=== PATIENT | male | born 2005 | race Caucasian/White ===

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

== ENCOUNTER 2025-06-26 10:05 | Outpatient (CLI) | payer SELFPAY ==
--- OUTSIDE RECORDS SUMMARY | 2025-05-04 19:54 | XMS_ITS | Encounter Summary ---
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 hip and ribs (flank pain) or in your back. ? Bruising, swelling, or seatbelt jerez in the area of your kidney, low back, or abdomen. Home care If you've had a bruise to your kidney, follow these tips: ? Drink lots of fluid. This means at least 8 to 10 glasses of water a day. ? Rest. Don't lift heavy objects or do strenuous activity for the next few days. ? You may use tqmv-leo-vraozbg medicine to control pain, unless your doctor prescribed something else. Talk with your doctor before using acetaminophen or nonsteroidal anti-inflammatory drugs, such as naproxen or ibuprofen, if you have chronic liver or kidney disease or are taking blood thinners. Also talk with your doctor if you've ever had a stomach ulcer or gastrointestinal bleeding. Children and teens should not take aspirin unless their doctor says it is safe. Aspirin can put them at risk for Jj syndrome, a rare but serious condition. Follow-up care Follow up with your doctor if you still have blood in your urine after 2 days (48 hours). Call 911 Call 911 if you: ? Have fainting, lightheadedness, dizziness, weakness, or a loss of consciousness. ? Have a rapid heart rate. ? Have heavy bleeding. ? Have severe belly (abdominal) pain or swelling. ? Have severe back pain. ? Have trouble breathing. ? Have a loss of feeling or weakness in your legs. ? Are unable to hold your urine (incontinence). When to get medical advice Contact your doctor right away if you: ? Have pain in your back or belly that gets worse. ? Have repeated vomiting. ? Notice larger amounts of blood in your urine. ? Pass blood clots in your urine. ? Cannot pass urine. ? Have a fever of 100.4??F (38??C) or higher, or as advised by your doctor. Last Reviewed Date: 2025 00:00:00 ?? [employer]. All rights reserved. This information is not intended as a substitute for professional medical care. Always follow your healthcare professional's instructions. * Jayjay Al - Enzo Delgadillo RN - 05/07/2025 11:56 AM EDT Images from the original note were not included. [id number] Having Femur Fracture Open Reduction and Internal Fixation (ORIF) ORIF is a type of treatment to fix a broken bone. It puts the pieces of a broken bone back togetherso they can heal. Open reduction means the bones are put back in place during a surgery. Internal fixation means that special hardware is used to hold the bone pieces together. This helps the bone heal correctly. The procedure is done by an orthopedic surgeon. This is a doctor with special trainingin treating bone, joint, and muscle problems. Flexible nails are one type of internal fixation. What to tell your healthcare provider Tell your healthcare provider about all the medicines you take. This includes prescriptions and kgtj-fhe-qqonzaf medicines, such as ibuprofen. It also includes vitamins, herbs, and other supplements.Tell the healthcare provider the last time you had something to eat or drink. Also tell your provider if you: ? Have had any recent changes in your health, such as an infection or fever ? Are sensitive or allergic to any medicines, latex, or tape ? Are sensitive or allergic to anesthesia, the medicines used to put you to sleep during surgery orto numb the surgery area ? Are or think you may be Tests before your surgery You may need an X-ray or a CT scan to look at your femur. Getting ready for your surgery ORIF often takes place as emergency surgery after an accident or injury. Before this procedure, a healthcare provider will ask about your health history and give you a physical exam. In some cases, femur fracture ORIF is planned. You may need to have your leg placed in traction while you wait for surgery. Traction is a type of sling that holds your leg. Talk with your healthcare provider about how to prepare for your surgery. You may need to stop taking some medicines, such as blood thinners and aspirin, before the procedure. If you smoke, you may need to stop before your surgery. Smoking can delay healing. Talk with your provider if you need help to stop smoking. Also, make sure to: ? Ask a family member or friend to take you home from the hospital. You can't drive yourself. ? Plan some changes at home to help you recover. Arrange for someone to help you at home after the surgery. ? Follow any instructions for not eating or drinking before your surgery. ? Follow all other instructions from your healthcare provider. You will be asked to sign a consent form that gives your permission to do the surgery. Read the form carefully. Ask questions if something isn't clear. On the day of surgery Your surgeon will explain the details of your surgery. These details will depend on where your injury is and how bad it is. An orthopedic surgeon with a team of specialized nurses will do the surgery. The preparation and surgery may take a couple of hours. In general, you can expect the following: ? You'll likely have general anesthesia. This will prevent pain and make you sleep through the surgery. Or you may have local or regional anesthesia to numb the area and medicine to help you relax and sleep through the surgery. ? A healthcare provider will watch your vital signs, like your heart rate and blood pressure, during the surgery. ? After cleaning the skin, your surgeon will make a cut (incision) through the skin and muscle of your thigh. ? The surgeon will put the pieces of your femur back into line correctly (reduction). ? The surgeon will secure the pieces of the broken bones to each other (fixation). They may use screws, metal plates, wires, or pins. For a fracture in the middle of your femur, a special metal noel may be put through the middle of the bone. It screws into the bone at both ends. ? The surgeon will make other repairs to the area as needed. ? The surgeon will close the layers of muscle and skin around your thigh with stitches (sutures), tiffanie, or by other means. After your surgery Talk to your surgeon about what you can expect after your surgery. You may stay one or more nights in the hospital. Before leaving the hospital, you'll likely have X-rays taken of your femur. This isto check the repair. You'll have some pain after the surgery. Your surgeon will tell you what pain medicine you can taketo help reduce the pain. Avoid certain sbkn-nxh-fhhlefa pain medicines as instructed. Some of thesemay interfere with bone healing. You can also use ice packs to help lessen pain and swelling. You?ll get instructions about how to move your leg and when you can put weight on it. Your surgeon may also tell you to eat foods high in calcium and vitamin D to help with bone healing. You may needto take medicine called a blood thinner for a little while after your surgery. Blood thinners stop blood from clotting or clumping together. Follow all your surgeon?s instructions carefully. Follow-up care Go to all of your follow-up visits. You may need to have your stitches removed a week or so after your surgery. You may have physical therapy to improve the strength and movement of your leg. The therapy may include treatments and exercises. The therapy improves your chances of a full recovery. Most people areable to return to all their normal activities within a few months. A femur fracture can take 4 to 6months to heal fully, but you should be able to go back to many activities before then. When to call your healthcare provider Call your healthcare provider if you have any of the following: ? Fever of 100.4??F (38??C) or higher, or as directed by your provider ? Chills ? Redness, swelling, or fluid leaking from your incision that gets worse ? Pain in your leg or calf that gets worse ? Loss of feeling in your foot or leg Last Reviewed Date: 2024 00:00:00 ?? [id number] [employer]. All rights reserved. This information is not intended as a substitute for professional medical care. Always follow your healthcare professional's instructions. * Jayjay OnIR - Enzo Delgadillo RN - 05/07/2025 11:56 AM EDT Images from the original note were not included. [id number] Discharge Instructions: Internal Fixation of a Fractured Femur You had a procedure called internal fixation of a fractured femur (thighbone). A noel, plates and screws, or several pins were inserted inside the bone. These will hold the broken ends of bone in place while they heal. After the bone has healed, the noel, plate and screws, or pins may need to be removed with surgery. A broken femur is a serious injury that takes about 3 to 6 months to heal. Here are instructions to help you care for your leg when you are at home. Activity ? Arrange your household to keep the items you need within reach. ? Remove electrical cords, throw rugs, and anything else that may cause you to fall. ? Use nonslip bathmats, grab bars, a raised toilet seat, and a shower chair in your bathroom. ? Follow the weight-bearing instructions given by your doctor. They will tell you how much weight you can or can't put on your leg. ? Use a cane, crutches, a walker, or handrails. Use these until your balance, flexibility, and strength improve. Ask for help from others when you need it. ? Don't carry things in your hands. You will need to use your hands to keep your balance. Use a polo pack, apron, or pockets to carry things. ? Don?t sit or lie in the same position for long periods. Don't cross your legs when you sit or liedown. Carefully reposition yourself every 30 to 60 minutes. ? Don?t drive until your doctor says it?s okay. And never drive while taking opioid pain medicine. Home care ? Take your pain medicine exactly as directed. ? Take extra care when showering. Follow your doctor?s instructions closely. Do the following: o If you wear a leg brace or immobilizer, cover it with plastic to keep it dry while you shower. o If you don't wear a leg brace or immobilizer, carefully wash your incision with soap and water. Gently pat it dry. Don?t rub the incision or apply creams or lotions to it. To prevent falling while showering, sit on a shower chair. ? Tell all your health care providers--including your dentist--that you have a noel, plate and screws, or pins in your leg. You may need to take antibiotics before dental procedures and other medical procedures. This is to reduce the risk of infection. Follow-up care Follow up with your doctor as advised. Call 911 Call 911 right away if you have: ? Chest pain. ? Shortness of breath. When to contact your doctor Contact your doctor right away if you have: ? Numbness or tingling in your leg or toes. ? Cool, pale, red- or blue-colored leg or toes. ? A fever of 100.4?? F ( 38?? C) or higher, or as directed by your doctor. ? Shaking chills. ? Pain that gets worse. ? Swelling of the fracture site or calf. ? Fluid with foul odor coming from the dressing. ? A rash. Last Reviewed Date: 2025 00:00:00 ?? [id number] [employer]. All rights reserved. This information is not intended as a substitute for professional medical care. Always follow your healthcare professional's instructions. * Jayjay MarlowSANDRITA - Enzo Delgadillo RN - 05/07/2025 11:56 AM EDT Images from the original note were not included. [id number] Preventing a Surgical Site Infection A risk of any surgery is an infection at the surgical site. The surgical site is a cut the surgeon makes in the skin to do the surgery. Surgical site infections can range in type. It may be a minor skin infection. Or it may be severe and include tissue under the skin or other organs. In some cases,a severe infection can cause . The information below tells you: ? About surgical site infections. ? What hospitals do to prevent them. ? How they?re treated if they do occur. ? What you can do to prevent an infection. Hand washing reduces the risk of infection. What causes a surgical site infection? Germs are everywhere. They?re on your skin, in the air, and on things you touch. Many germs are good. Some are harmful. Surgical site infections occur when harmful germs enter your body through the incision in your skin. Some infections are caused by germs that are in the air or on objects. But most are caused by germs found on and in your own body. Who is at risk for a surgical site infection? Anyone can have a surgical site infection. Your risk is higher if you: ? Are an older adult. ? Have a weak immune system. ? Have other health conditions such as diabetes. ? Take certain medicines, such as steroids. ? Are a smoker. ? Have certain types of surgery, such as abdominal surgery. ? Have poor nutrition. ? Are very overweight. ? Have a surgery that lasts longer than 2 hours. What are the symptoms of a surgical site infection? An infection often shows up as skin redness, pain, and swelling around the incision that gets worse. Later, a cloudy or greenish-yellow fluid may come from the incision. The fluid may smell bad. The incision may pull apart or open up. You are likely to have a fever and may feel very ill. Symptoms can appear at any time. They may happen from hours to weeks after surgery. Implants such as an artificial knee or hip can become infected at any time after the surgery. How is a surgical site infection treated? ? A surgical site infection is treated with antibiotics. The type of medicine you get will depend on what may be causing the infection. Most serious wound infections need wound care. In some cases, surgery may be needed on the infected wound. ? An infected skin wound may be reopened and cleaned. A deep wound may need to be packed with gauze. The gauze is changed often until the wound starts to heal from the inside out. Your health care provider will decide the best way to treat your infection. ? If an infection occurs where an implant is placed, the implant may be removed. ? If you have an infection deeper in your body, you may need surgery to treat it. What hospitals do to prevent surgical site infections Many hospitals take these steps to help prevent surgical site infections: ? Handwashing. Before the surgery, your surgeon and all surgery staff scrub their hands and arms with an antiseptic soap. ? Clean skin. The site where your incision is made is carefully cleaned with an antiseptic solution. ? Sterile clothing and drapes. The surgical team wears medical uniforms. These are known as scrub suits. They wear long-sleeved surgical gowns, masks, caps, shoe covers, and sterile gloves. Your bodyis fully covered with a large sterile sheet (sterile drape). There is an opening in the sheet wherethe incision is made. ? Clean air. Operating rooms have special air filters. They use positive pressure airflow to prevent unfiltered air from entering the room. ? Careful use of antibiotics. Antibiotics are given no more than 60 minutes before the incision is made. They are generally stopped within 24 hours after surgery. This depends on the type of surgery.This helps kill germs but prevents problems that can occur when antibiotics are taken longer. ? Controlled blood sugar levels. Your blood sugar level may rise. This can be because of the stressof the surgery. Your blood sugar level is watched closely to make sure it stays within a normal range. High blood sugar delays wound healing. This increases the risk of infection. ? Controlled body temperature. A ajwlq-lotm-ilocnl temperature during or after surgery prevents oxygen from reaching the wound. This makes it harder for your body to fight infection. Hospitals may warm I.V. fluids, and provide warm-air blankets. Your temperature is watched throughout the surgery. ? Safe hair removal. Any hair that must be removed is clipped right before the incision, not shavedwith a razor. This prevents tiny nicks and cuts where germs can enter. ? Wound care. After surgery, a closed wound is covered with a sterile dressing for 1 to 2 days. Open wounds are packed with sterile gauze and covered with a sterile dressing. What you can do to prevent a surgical site infection ? Ask questions. Learn what your hospital is doing to prevent infection. ? If instructed, shower or bathe with plain soap the night before and the day of your surgery. Follow all instructions you're given. You may be asked to use a special cleanser that you don?t rinse off. ? If you smoke, stop as long as possible before and after the surgery. Ask your provider about waysto quit. ? Take antibiotics only when your provider tells you to. Using antibiotics when they?re not needed can create germs that are harder to kill. Finish the entire prescription of your antibiotics even ifyou feel better. ? Ask health care workers to clean their hands with plain soap and water or with an alcohol-based hand state appellate clerk before and after caring for you. Don?t be afraid to remind them. ? After surgery, eat healthy foods. Care for your incision as directed by your health care team. When to contact your doctor Contact your provider or seek medical care right away if: ? The pain at the surgical site gets worse. ? A red streak, worse redness, or puffiness appears near the incision. ? Yellowish, cloudy, or bad-smelling fluid leaks from the incision. ? Your stitches dissolve before the wound heals. ? You have a fever of 100.4?? F ( 38??C ) or higher, or as advised by your provider. ? You have a tired feeling that doesn?t go away. Last Reviewed Date: 2024 00:00:00 ?? [id number] [employer]. All rights reserved. This information is not intended as a substitute for professional medical care. Always follow your healthcare professional's instructions. * Progress Notes - Liberty Blake Stephania - 05/07/2025 11:41 AM EDT Occupational Therapy Treatment Patient Name: Jeremy Lagunas Today's Date: 05/07/2025 OT Discharge Recommendations: Acute rehab Equipment Recommended: Defer to facility Subjective Pt states, I want to try to walk today. Participants in Care Family/Caregiver Present: No Presentation Oxygen Therapy: None (Room air) Lines and Tubes: Peripheral IV 05/04/25 Posterior;Right Hand (Active) Peripheral IV 05/04/25 Left;Posterior Hand (Active) Pre-Session: Lines intact, Chair alarm, Sitting in chair Post-Session: Sitting in chair, Lines intact, Call light in reach, RN notified, Chair alarm Precautions Left Lower Extremity Weight Bearing Status: Weight Bearing as Tolerated Medical Precautions: Fall precautions Objective The Occupational Therapist educated the patient on the use of the Bri Rating of Perceived Exertion(RPE) Scale for self-monitoring of exertion levels during physical activity. The patient identifiedexertional demands as a 5/10 at point of rest break. The patient was instructed to initiate a standing or seated rest break when the RPE reaches 6 or 7 to help manage exertion and prevent overexertion. Following functional mobility, the patient endorsed feeling dizzy. The therapist took a blood pressure reading to ensure safety, which measured 145/96 (112). The RN was notified. Dizziness abated with seated rest break. Pain Pt reports 3-4/10 pain in left LE. RN notified patient left positioned for increased comfort and pressure relief. Delirium Screening RASS: Alert and calm Confusion Assessment Method-ICU (CAM-ICU/PCAM-ICU) Feature 3: Altered Level of Consciousness: Negative Bed Mobility Bed Mobility Interventions: Pt received and left seated in bedside chair. Transfers Transfer Exam: Sit to stand Level of [place]: Contact guard Physical/Nonphysical Assist: Verbal Cues, Set-up required Assistive Device: Walker, rolling Transfer Exam: Stand to Sit Level of [place]: Contact guard Physical/Nonphysical Assist: Verbal Cues, Set-up required Assistive Device: Walker, rolling Self-Care Interventions Self Care/Home Management (ADLs) Time Entry: 24 Skilled treatment and support services provided during occupational therapy session include: Monitoring of vital signs to ensure tolerance during therapeutic activity. Moderate verbal, tactile, visual, and demonstrative cues to facilitate sequencing during functionaltasks. Provision of increased time frames to support optimal level of patient engagement. Task/activity modification with appropriate grading to promote patient safety while offering the right level of functional challenge. Skilled organization and management of medical lines/tubes to reduce the risk of falls. Environmental setup to ensure patient safety and access to all necessary treatment space locations. Education on energy conservation and work simplification strategies. OT guided patient through self care tasks this date with focus on increasing his functional endurance, strength and mobility for sustained ADL performance. OT provided pt with verbal instruction, tactile cues, demonstration, and varied levels of physical assist to complete tasks as outlined below. Grooming Grooming Interventions: Pt deferred. Health Management Health Management interventions: Pt completed functional mobility, including hospital room navigation with set- up, CGA, verbal cues,and tactile cues to improve activity tolerance, endurance and independence required for sequential ADL performance, community re-entry, and navigating household distances. Pt demonstrates limited endurance, increased pain, and impaired tolerance to upright position impacting independence with functional mobility and safety during dynamic standing tasks. He requires verbal and tactile cues for endurance, posture, technique, and safety. Pt reported feeling dizzy and requiring a seated rest break after walking grossly 20 feet. While at rest, pt notes, I don't think I'm ready to try the stairs yet. Assessment The patient demonstrates progression of skills from the previous treatment session, evidenced by reduced assistance levels, improved tolerance for out-of-bed activities, and enhancing static/dynamic sitting balance. He verbalized motivation for recovery and actively engaged throughout the session. However, he demonstrates rapid fatigue and reports dizziness with exertion. The patient will continue to benefit from skilled occupational therapy interventions to maximize rehabilitation potential, given ongoing impairments in functional endurance, high subjective pain levels, and limited toleranceto upright positioning, which pose barriers to a safe discharge home. OT Recommendations Discharge Destination: Acute rehab Discharge Equipment: Defer to facility Plan Gradually increase activity duration and intensity to improve functional endurance, monitoring for signs of fatigue and dizziness. Incorporate static and dynamic sitting balance exercises to enhance stability and confidence duringactivities. Use graded activity approaches to improve tolerance to upright positions and functional tasks, withfrequent rest breaks as needed. Goals OT GOAL DETAILS Goal Established Date Time Frame Goal Status OT Goal 1: Pt will complete all bed mobility (I) to promote autonomy and reduce reliance on caregivers. 05/06/25 2 weeks OT Goal 2: Pt will transfer will complete a toilet transfer with SBA and AE PRN to reduce the risk of falling. 05/06/25 2 weeks OT Goal 3: Pt will complete lower body dressing with AE PRN to reduce risk of fall during toileting. 05/06/25 2 weeks Written by Liberty Blake on 05/07/25 at 12:52 PM. * Progress Notes - Roger Mcclure - 05/07/2025 11:40 AM EDT Physical Therapy Treatment Patient Name: Jeremy Lagunas Today's Date: 05/07/2025 PT Discharge Recommendations: Acute rehab Equipment Recommended: Defer to facility Subjective Patient motivated to walk today. Participants in Care Family/Caregiver Present: No Presentation Oxygen Therapy: None (Room air) Lines and Tubes: Pre-Session: Lines intact, Chair alarm, Sitting in chair Pre-Session Comments: RN approved of session Post-Session: Sitting in chair, Lines intact, Call light in reach, RN notified, Chair alarm Post-Session Comments: all needs met Precautions Left Lower Extremity Weight Bearing Status: Weight Bearing as Tolerated Medical Precautions: Fall precautions Objective Pain Pt reports 3-4/10 pain in left LE. RN notified patient left positioned for increased comfort and pressure relief. Delirium Screening RASS: Alert and calm Confusion Assessment Method-ICU (CAM-ICU/PCAM-ICU) Feature 3: Altered Level of Consciousness: Negative Bed Mobility Bed Mobility Exam: Scooting/Bridging Level of [place]: Minimum assist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 5:30 AM EDT [facility] Chloride, Plasma 102 97 - 107 mmol/L 05/06/2025 5:30 AM EDT [facility] CO2, Plasma 26 22 - 29 mmol/L 05/06/2025 5:30 AM EDT [facility] Anion Gap 10 6 - 16 mmol/L 05/06/2025 5:30 AM EDT [facility] Total Calcium, Plasma 8.1(L) 8.9 - 10.2 mg/dL 05/06/2025 5:30 AM EDT [facility] eGFRcr 133.3 mL/min/1.7 3m*2 05/06/2025 5:30 AM EDT [facility] Comment:Reported eGFRcr in m L/min/1.73m2 is based the CKD-EPI 2020 equation that does not use a race coefficient. Blood Venous blood specimen / Unknown Venipuncture / Unknown 05/06/2025 4:54 AM EDT 05/06/2025 4:59 AM EDT us Maryann BHARDWAJ LAB BLOOD ORDERABLES Final R esult [facility] [address] [place] [address] * FL Less than 1 Hour Intraoperative (05/05/2025 11:05 AM EDT) Narrative IMAGING - 05/05/2025 11:06 AM EDT Images were obtained for surgical purposes. See Phoenix Castle's surgical note in the patient's chart for the findings. us Phoenix Castle MD IMG FLUOROSCOPY PROCEDURES F inal Result IMAGING * XR Femur Left 2+ Views (05/05/2025 11:04 AM EDT) Anatomical Region Laterality Modality Lower Extremities, Femur Left Digital Radiography Impressions 05/06/2025 8:34 AM EDT Expected postoperative changes of retrograde intramedullary fixation of fracture of the distal femoral diaphysis with near anatomic reduction CRITICAL RESULT: No. COMMUNICATION: Per this written report. Drafted by Yuan Gonzalez MD on 05/06/2025 8:31 AM Final report signed by Yuan Gonzalez MD on 05/06/2025 8:34 AM Narrative 05/06/2025 8:34 AM EDT CLINICAL INDICATION: post-op IN OR TECHNIQUE: XR FEMUR LEFT 2+ VIEWS COMPARISON: May 04, 2025 FINDINGS: 2 views of the left femur show retrograde intramedullary fixation of fracture of the distal femoral diaphysis with near anatomic reduction. Chronic ossification at the inferior medial aspect of the patella. Hip and knee joint space and alignment are normal. Procedure Note Yuan Gonzalez MD - 05/06/2025 CLINICAL INDICATION: post-op IN OR TECHNIQUE: XR FEMUR LEFT 2+ VIEWS COMPARISON: May 04, 2025 FINDINGS: 2 views of the left femur show retrograde intramedullary fixation offracture of the distal femoral diaphysis with near anatomic reduction.Chronic ossification at the inferior medial aspect of the patella. Hip andknee joint space and alignment are normal. IMPRESSION: Expected postoperative changes of retrograde intramedullary fixation offracture of the distal femoral diaphysis with near anatomic reduction CRITICAL RESULT: No. COMMUNICATION: Per this written report. Drafted by Yuan Gonzalez MD on 05/06/2025 8:31 AM Final report signed by Yuan Gonzalez MD on 05/06/2025 8:34 AM Phoenix Castle MD IMG XR PROCEDURES Final Resu lt * Methicillin Resistant Staphylococcus aureus (MRSA) by PCR (05/05/2025 5:29 AM EDT) Methicillin Resistant Staphylococcus aureus (MRSA) by PCR Not Detected Not Detected 05/05/2025 7:36 AM EDT [facility] Swab Both anterior nares / Unknown Non-blood Collection / Unknown 05/05/2025 5:29 AM EDT 05/05/2025 6:16 AM EDT Narrative [facility] - 05/05/2025 7:36 AM EDT This test is FDA approved for use with nares swab specimens using the eSwabs. This test is used for clinical purposes. It should not be regarded as investigational or for research. This laboratory is certified under the Clinical Laboratory improvement Amendments of 1988 (CLIA-88 as qualified to perform high complexity clinical laboratory testing. Gauri Hall MD LAB MICROBIOLOGY - GENERAL SAHRA BOWEN Final Result Performing Organization Address [facility]/ZIP Co de Phone Number [facility] [address] [place] [address] * Light Green Top (05/05/2025 5:02 AM EDT) Pathologist [facility] Extra Hold for add-ons 05/05/2025 5:32 AM EDT [facility] Comment:Auto resulted. Blood Venous blood specimen / Unknown 05/05/2025 5:02 AM EDT 05/05/2025 5:18 AM EDT Gauri Hall MD LAB BLOOD ORDERABLES Final Resu lt Performing Organization Address [facility] Co de Phone Number [facility] [address] [place] [address] * Lipase (05/05/2025 5:02 AM EDT) [facility] Lipase, Plasma 19 19 - 63 U/L 05/05/2025 5:59 AM EDT [facility] Blood Venous blood specimen / Unknown Venipuncture / Unknown 05/05/2025 5:02 AM EDT 05/05/2025 5:35 AM EDT Gauri Hall MD LAB BLOOD ORDERABLES Final Resu lt Performing Organization Address [facility] Co de Phone Number [facility] [address] [place] [address] * Lactate, venous (05/05/2025 5:02 AM EDT) [facility] Lactate, Venous, Whole Blood 2.0 0.5 - 2.2 mmol/L LAB HEMATOLOGY METHOD 05/05/2025 5:18 AM EDT [facility] Blood Venous blood specimen / Unknown Venipuncture / Unknown 05/05/2025 5:02 AM EDT 05/05/2025 5:17 AM EDT us Phoenix Saunders MD LAB BLOOD ORDERABLES Final Resu lt [facility] [address] [place] [address] * ECG Adult (05/05/2025 2:46 AM EDT) EKG DIAGNOSIS CLASS Abnormal MUSE ECG Ventricular Rate 99 BPM MUSE ECG Atrial Rate 99 BPM MUSE ECG TX Interval 138 ms MUSE ECG QRSD Interval 90 ms MUSE ECG QT Interval 340 ms MUSE ECG QTC Interval 436 ms MUSE ECG P [place] 68 degrees MUSE ECG R [place] 53 degrees MUSE ECG T Wave [place] 8 degrees MUSE ECG Diagnosis Normal sinus rhythm MUSE ECG Diagnosis Nonspecific T wave abnormality MUSE ECG Diagnosis Abnormal ECG MUSE ECG Diagnosis MUSE ECG Diagnosis Confirmed by Thomas Solorzano ([id number]) on 05/05/2025 10:22:58 AM MUSE ECG 05/05/2025 2:46 AM EDT 05/05/2025 10:22 AM EDT us Gauri Hall MD ECG ORDERABLES Final Result Performing Organization Address City/[facility]/ZIP Co de Phone Number MUSE ECG * (ABNORMAL) Basic metabolic panel (05/05/2025 2:36 AM EDT) Glucose, Plasma 152(H) 74 - 99 mg/dL 05/05/2025 3:16 AM EDT [facility] BUN, Plasma 15 7 - 21 mg/dL 05/05/2025 3:16 AM EDT [facility] Creatinine, Plasma 0.80 0.70 - 1.20 mg/dL 05/05/2025 3:16 AM EDT [facility] BUN/Creatinine Ratio 19 05/05/2025 3:16 AM EDT [facility] Sodium, Plasma 139 136 - 145 mmol/L 05/05/2025 3:16 AM EDT [facility] Potassium, Plasma 4.4 3.6 - 4.9 mmol/L 05/05/2025 3:16 AM EDT [facility] Chloride, Plasma 104 97 - 107 mmol/L 05/05/2025 3:16 AM EDT [facility] CO2, Plasma 23 22 - 29 mmol/L 05/05/2025 3:16 AM EDT [facility] Anion Gap 12 6 - 16 mmol/L 05/05/2025 3:16 AM EDT [facility] Total Calcium, Plasma 8.5(L) 8.9 - 10.2 mg/dL 05/05/2025 3:16 AM EDT [facility] eGFRcr 130.7 mL/min/1.7 3m*2 05/05/2025 3:16 AM EDT [facility] Comment:Reported eGFRcr in m L/min/1.73m2 is based the CKD-EPI 2020 equation that does not use a race coefficient. Blood Venous blood specimen / Unknown Venipuncture / Unknown 05/05/2025 2:36 AM EDT 05/05/2025 2:47 AM EDT us Gauri Hall MD LAB BLOOD ORDERABLES Final Resu lt [facility] [address] [place] [address] * XR Forearm Right 2 View (05/05/2025 2:19 AM EDT) Anatomical Region Laterality Modality Upper Extremities, Forearm Right Digit al Radiography Impressions 05/05/2025 2:27 AM EDT No fracture or dislocation left elbow left hand left forearm left wrist and left shoulder. CRITICAL RESULT: No. COMMUNICATION: Per this written report. Drafted by Al Watt MD on 05/05/2025 2:25 AM Final report signed by Al Watt MD on 05/05/2025 2:27 AM Narrative 05/05/2025 2:27 AM EDT CLINICAL INDICATION: pain TECHNIQUE: XR ELBOW LEFT 3+ VIEWS, XR FOREARM RIGHT 2 VIEWS, XR HAND LEFT 3+ VIEWS, XR WRIST LEFT 3+ VIEWS, XR SHOULDER LEFT 2+ VIEWS COMPARISON: None. FINDINGS: No fracture or dislocation left elbow left hand left forearm left wrist and left shoulder. Procedure Note Al Watt MD - 05/05/2025 CLINICAL INDICATION: pain TECHNIQUE: XR ELBOW LEFT 3+ VIEWS, XR FOREARM RIGHT 2 VIEWS, XR HAND LEFT 3+ VIEWS,XR WRIST LEFT 3+ VIEWS, XR SHOULDER LEFT 2+ VIEWS COMPARISON: None. FINDINGS: No fracture or dislocation left elbow left hand left forearm left wristand left shoulder. IMPRESSION: No fracture or dislocation left elbow left hand left forearm left wristand left shoulder. CRITICAL RESULT: No. COMMUNICATION: Per this written report. Drafted by Al Watt MD on 05/05/2025 2:25 AM Final report signed by Al Watt MD on 05/05/2025 2:27 AM Jignesh Perez MD IMG XR PROCEDURES Final Resul t * XR Hand 3+ Views Left (05/05/2025 2:19 AM EDT) Anatomical Region Laterality Modality Upper Extremities, Hand Left Digital Radiography Impressions 05/05/2025 2:27 AM EDT No fracture or dislocation left elbow left hand left forearm left wrist and left shoulder. CRITICAL RESULT: No. COMMUNICATION: Per this written report. Drafted by Al Watt MD on 05/05/2025 2:25 AM Final report signed by Al Watt MD on 05/05/2025 2:27 AM Narrative 05/05/2025 2:27 AM EDT CLINICAL INDICATION: pain TECHNIQUE: XR ELBOW LEFT 3+ VIEWS, XR FOREARM RIGHT 2 VIEWS, XR HAND LEFT 3+ VIEWS, XR WRIST LEFT 3+ VIEWS, XR SHOULDER LEFT 2+ VIEWS COMPARISON: None. FINDINGS: No fracture or dislocation left elbow left hand left forearm left wrist and left shoulder. Procedure Note Al Watt MD - 05/05/2025 CLINICAL INDICATION: pain TECHNIQUE: XR ELBOW LEFT 3+ VIEWS, XR FOREARM RIGHT 2 VIEWS, XR HAND LEFT 3+ VIEWS,XR WRIST LEFT 3+ VIEWS, XR SHOULDER LEFT 2+ VIEWS COMPARISON: None. FINDINGS: No fracture or dislocation left elbow left hand left forearm left wristand left shoulder. IMPRESSION: No fracture or dislocation left elbow left hand left forearm left wristand left shoulder. CRITICAL RESULT: No. COMMUNICATION: Per this written report. Drafted by Al Watt MD on 05/05/2025 2:25 AM Final report signed by Al Watt MD on 05/05/2025 2:27 AM us Jignesh Perez MD IMG XR PROCEDURES Final Resul t * XR Wrist Left 3+ Views (05/05/2025 2:19 AM EDT) Anatomical Region Laterality Modality Upper Extremities, Wrist Left Digital Radiography Impressions 05/05/2025 2:27 AM EDT No fracture or dislocation left elbow left hand left forearm left wrist and left shoulder. CRITICAL RESULT: No. COMMUNICATION: Per this written report. Drafted by Al Watt MD on 05/05/2025 2:25 AM Final report signed by Al Watt MD on 05/05/2025 2:27 AM Narrative 05/05/2025 2:27 AM EDT CLINICAL INDICATION: pain TECHNIQUE: XR ELBOW LEFT 3+ VIEWS, XR FOREARM RIGHT 2 VIEWS, XR HAND LEFT 3+ VIEWS, XR WRIST LEFT 3+ VIEWS, XR SHOULDER LEFT 2+ VIEWS COMPARISON: None. FINDINGS: No fracture or dislocation left elbow left hand left forearm left wrist and left shoulder. Procedure Note Al Watt MD - 05/05/2025 CLINICAL INDICATION: pain TECHNIQUE: XR ELBOW LEFT 3+ VIEWS, XR FOREARM RIGHT 2 VIEWS, XR HAND LEFT 3+ VIEWS,XR WRIST LEFT 3+ VIEWS, XR SHOULDER LEFT 2+ VIEWS COMPARISON: None. FINDINGS: No fracture or dislocation left elbow left hand left forearm left wristand left shoulder. IMPRESSION: No fracture or dislocation left elbow left hand left forearm left wristand left shoulder. CRITICAL RESULT: No. COMMUNICATION: Per this written report. Drafted by Al Watt MD on 05/05/2025 2:25 AM Final report signed by Al Watt MD on 05/05/2025 2:27 AM us Jignesh Perez MD IMG XR PROCEDURES Final Resul t * XR Elbow Left 3+ Views (05/05/2025 2:19 AM EDT) Anatomical Region Laterality Modality Upper Extremities, Elbow Left Digital Radiography Impressions 05/05/2025 2:27 AM EDT No fracture or dislocation left elbow left hand left forearm left wrist and left shoulder. CRITICAL RESULT: No. COMMUNICATION: Per this written report. Drafted by Al Watt MD on 05/05/2025 2:25 AM Final report signed by Al Watt MD on 05/05/2025 2:27 AM Narrative 05/05/2025 2:27 AM EDT CLINICAL INDICATION: pain TECHNIQUE: XR ELBOW LEFT 3+ VIEWS, XR FOREARM RIGHT 2 VIEWS, XR HAND LEFT 3+ VIEWS, XR WRIST LEFT 3+ VIEWS, XR SHOULDER LEFT 2+ VIEWS COMPARISON: None. FINDINGS: No fracture or dislocation left elbow left hand left forearm left wrist and left shoulder. Procedure Note Al Watt MD - 05/05/2025 CLINICAL INDICATION: pain TECHNIQUE: XR ELBOW LEFT 3+ VIEWS, XR FOREARM RIGHT 2 VIEWS, XR HAND LEFT 3+ VIEWS,XR WRIST LEFT 3+ VIEWS, XR SHOULDER LEFT 2+ VIEWS COMPARISON: None. FINDINGS: No fracture or dislocation left elbow left hand left forearm left wristand left shoulder. IMPRESSION: No fracture or dislocation left elbow left hand left forearm left wristand left shoulder. CRITICAL RESULT: No. COMMUNICATION: Per this written report. Drafted by Al Watt MD on 05/05/2025 2:25 AM Final report signed by Al Watt MD on 05/05/2025 2:27 AM Jignesh Perez MD IMG XR PROCEDURES Final Resul t * XR Shoulder Left 2+ Views (05/05/2025 2:19 AM EDT) Anatomical Region Laterality Modality Upper Extremities, Shoulder Left Digi nacho Radiography Impressions 05/05/2025 2:27 AM EDT No fracture or dislocation left elbow left hand left forearm left wrist and left shoulder. CRITICAL RESULT: No. COMMUNICATION: Per this written report. Drafted by Al Watt MD on 05/05/2025 2:25 AM Final report signed by Al Watt MD on 05/05/2025 2:27 AM Narrative 05/05/2025 2:27 AM EDT CLINICAL INDICATION: pain TECHNIQUE: XR ELBOW LEFT 3+ VIEWS, XR FOREARM RIGHT 2 VIEWS, XR HAND LEFT 3+ VIEWS, XR WRIST LEFT 3+ VIEWS, XR SHOULDER LEFT 2+ VIEWS COMPARISON: None. FINDINGS: No fracture or dislocation left elbow left hand left forearm left wrist and left shoulder. Procedure Note Al Watt MD - 05/05/2025 CLINICAL INDICATION: pain TECHNIQUE: XR ELBOW LEFT 3+ VIEWS, XR FOREARM RIGHT 2 VIEWS, XR HAND LEFT 3+ VIEWS,XR WRIST LEFT 3+ VIEWS, XR SHOULDER LEFT 2+ VIEWS COMPARISON: None. FINDINGS: No fracture or dislocation left elbow left hand left forearm left wristand left shoulder. IMPRESSION: No fracture or dislocation left elbow left hand left forearm left wristand left shoulder. CRITICAL RESULT: No. COMMUNICATION: Per this written report. Drafted by Al Watt MD on 05/05/2025 2:25 AM Final report signed by Al Watt MD on 05/05/2025 2:27 AM us Jignesh Perez MD IMG XR PROCEDURES Final Resul t * Lactate, venous (05/05/2025 1:12 AM EDT) Pathologist [facility] Lactate, Venous, Whole Blood 1.6 0.5 - 2.2 mmol/L LAB HEMATOLOGY METHOD 05/05/2025 1:17 AM EDT [facility] Blood Venous blood specimen / Unknown Venipuncture / Unknown 05/05/2025 1:12 AM EDT 05/05/2025 1:16 AM EDT us Phoenix Saunders MD LAB BLOOD ORDERABLES Final Resu lt [facility] [address] [place] [address] * Prothrombin Time/INR (05/05/2025 1:12 AM EDT) Pathologist [facility] Prothrombin Time 13.8 12.0 - 14.3 sec 05/05/2025 1:28 AM EDT [facility] INR 1.1 0.9 - 1.1 05/05/2025 1:28 AM EDT [facility] Blood Venous blood specimen / Unknown Venipuncture / Unknown 05/05/2025 1:12 AM EDT 05/05/2025 1:14 AM EDT Narrative [facility] - 05/05/2025 1:28 AM EDT OPTIMAL INR RANGES FOR PATIENT ON ORAL ANTICOAGULANT THERAPY Prevention of venous thromboembolism INR 2.0 to 3.0 In patients with heart disease: Atrial fibrillation INR 2.0 to 3.0 Valvular heart disease INR 2.0 to 3.0 Tissue heart valves INR 2.0 to 3.0 Mechanical prosthetic valves INR 2.5 to 3.5 Prevention of recurrent GA INR 2.5 to 3.5 us Phoenix Saunders MD LAB BLOOD ORDERABLES Final Resu lt [facility] [address] [place] [address] * (ABNORMAL) Basic Metabolic Panel, Plasma (05/05/2025 1:12 AM EDT) Glucose, Plasma 139(H) 74 - 99 mg/dL 05/05/2025 1:53 AM EDT [facility] BUN, Plasma 13 7 - 21 mg/dL 05/05/2025 1:53 AM EDT [facility] Creatinine, Plasma 0.86 0.70 - 1.20 mg/dL 05/05/2025 1:53 AM EDT [facility] BUN/Creatinine Ratio 15 05/05/2025 1:53 AM EDT [facility] Sodium, Plasma 137 136 - 145 mmol/L 05/05/2025 1:53 AM EDT [facility] Potassium, Plasma 6.5(HH) 3.6 - 4.9 mmol/L 05/05/2025 1:53 AM EDT [facility] Comment:Hemolyzed, result ma y be falsely increased. Chloride, Plasma 104 97 - 107 mmol/L 05/05/2025 1:53 AM EDT [facility] CO2, Plasma 21(L) 22 - 29 mmol/L 05/05/2025 1:53 AM EDT [facility] Anion Gap 12 6 - 16 mmol/L 05/05/2025 1:53 AM EDT [facility] Total Calcium, Plasma 8.6(L) 8.9 - 10.2 mg/dL 05/05/2025 1:53 AM EDT [facility] eGFRcr 127.9 mL/min/1.7 3m*2 05/05/2025 1:53 AM EDT [facility] Comment:Reported eGFRcr in m L/min/1.73m2 is based the CKD-EPI 2020 equation that does not use a race coefficient. Blood Venous blood specimen / Unknown Venipuncture / Unknown 05/05/2025 1:12 AM EDT 05/05/2025 1:14 AM EDT us Phoenix Saunders MD LAB BLOOD ORDERABLES Final Resu lt [facility] [address] [place] [address] * (ABNORMAL) CBC W/O Differential (05/05/2025 1:12 AM EDT) WBC Count 19.01(H) 3.70 - 10.30 10*3/uL LAB HEMATOLOGY METHOD 05/05/2025 1:16 AM EDT [facility] RBC Count 4.99 4.60 - 6.10 10*6/uL LAB HEMATOLOGY METHOD 05/05/2025 1:16 AM EDT [facility] HGB 14.5 13.7 - 17.5 g/dL LAB HEMATOLOGY METHOD 05/05/2025 1:16 AM EDT [facility] HCT 40.1 40.0 - 51.0 % LAB HEMATOLOGY METHOD 05/05/2025 1:16 AM EDT [facility] Platelet Count 219 155 - 369 10*3/uL LAB HEMATOLOGY METHOD 05/05/2025 1:16 AM EDT [facility] MCV 80 79 - 98 fL LAB HEMATOLOGY METHOD 05/05/2025 1:16 AM EDT [facility] MCH 29.1 26.0 - 32.0 pg LAB HEMATOLOGY METHOD 05/05/2025 1:16 AM EDT [facility] MCHC 36.2(H) 30.7 - 35.5 g/dL LAB HEMATOLOGY METHOD 05/05/2025 1:16 AM EDT [facility] RDW 12.6 11.5 - 14.5 % LAB HEMATOLOGY METHOD 05/05/2025 1:16 AM EDT [facility] MPV 10.1 8.8 - 12.5 fL LAB HEMATOLOGY METHOD 05/05/2025 1:16 AM EDT [facility] nRBC 0.0 <=0.0 per 100 WBCs LAB HEMATOLOGY METHOD 05/05/2025 1:16 AM EDT [facility] Blood Venous blood specimen / Unknown Venipuncture / Unknown 05/05/2025 1:12 AM EDT 05/05/2025 1:14 AM EDT us Phoenix Saunders MD LAB BLOOD ORDERABLES Final Resu lt [facility] [address] [place] [address] * ECG Adult (05/05/2025 1:02 AM EDT) EKG DIAGNOSIS CLASS Abnormal MUSE ECG Ventricular Rate 107 BPM MUSE ECG Atrial Rate 107 BPM MUSE ECG TX Interval 136 ms MUSE ECG QRSD Interval 86 ms MUSE ECG QT Interval 332 ms MUSE ECG QTC Interval 443 ms MUSE ECG P [place] 72 degrees MUSE ECG R [place] 68 degrees MUSE ECG T Wave [place] 11 degrees MUSE ECG Diagnosis Sinus tachycardia MUSE ECG Diagnosis Nonspecific T wave abnormality MUSE ECG Diagnosis Abnormal ECG MUSE ECG Diagnosis MUSE ECG Diagnosis Confirmed by Thomas Solorzano ([id number]) on 05/05/2025 10:17:42 AM MUSE ECG 05/05/2025 1:02 AM EDT 05/05/2025 10:17 AM EDT us Phoenix Saunders MD ECG ORDERABLES Final Result MUSE ECG * CT Knee Left wo IV Contrast (05/04/2025 9:47 PM EDT) Anatomical Region Laterality Modality Knee Left Computed Tomogra phy Impressions 05/04/2025 10:33 PM EDT Partially imaged distal femoral diaphyseal fracture. Old patellar fracture or possibly bipartite patella. No acute fracture or dislocation of knee. No joint involvement of femur fracture CRITICAL RESULT: No. COMMUNICATION: Per this written report. Drafted by Al Watt MD on 05/04/2025 10:31 PM Final report signed by Al Watt MD on 05/04/2025 10:33 PM Narrative 05/04/2025 10:33 PM EDT CLINICAL INDICATION: c/f patella fx, will call when ready TECHNIQUE: Multiple axial images left knee no contrast. Reformats in coronal and sagittal planes Total DLP (Dose-Length Product): . Please note: The reported value represents the total of one or more individual components during the CT acquisition on this date and at this time, and as such, the same value may appear in more than one CT report depending on the interpreting/reporting physicians. COMPARISON: None. FINDINGS: Partially imaged distal femoral diaphyseal fracture. Old patellar fracture or possibly bipartite patella. No acute fracture or dislocation of knee. No joint involvement of femur fracture. Procedure Note Al Watt MD - 05/04/2025 CLINICAL INDICATION: c/f patella fx, will call when ready TECHNIQUE: Multiple axial images left knee no contrast. Reformats in coronal andsagittal planes Total DLP (Dose-Length Product): . Please note: The reported valuerepresents the total of one or more individual components during the CTacquisition on this date and at this time, and as such, the same value mayappear in more than one CT report depending on the interpreting/reportingphysicians. COMPARISON: None. FINDINGS: Partially imaged distal femoral diaphyseal fracture. Old patellar fractureor possibly bipartite patella. No acute fracture or dislocation of knee.No joint involvement of femur fracture. IMPRESSION: Partially imaged distal femoral diaphyseal fracture. Old patellar fractureor possibly bipartite patella. No acute fracture or dislocation of knee.No joint involvement of femur fracture CRITICAL RESULT: No. COMMUNICATION: Per this written report. Drafted by Al Watt MD on 05/04/2025 10:31 PM Final report signed by Al Watt MD on 05/04/2025 10:33 PM us Phoenix Saunders MD IMG CT PROCEDURES Final Result * XR Tibia Fibula Left 2+ Views (05/04/2025 9:13 PM EDT) Anatomical Region Laterality Modality Lower Extremities, Lower Leg Left Dig ital Radiography Impressions 05/04/2025 9:28 PM EDT Acute displaced, foreshortened, and angulated mid to distal femoral diaphyseal fracture as above. CRITICAL RESULT: No. COMMUNICATION: Per this written report. Drafted by Alec Augustin MD on 05/04/2025 9:25 PM Final report signed by Alec Augustin MD on 05/04/2025 9:28 PM Narrative 05/04/2025 9:28 PM EDT CLINICAL INDICATION: trauma TECHNIQUE: XR KNEE LEFT 3 VIEWS, XR FEMUR LEFT 2+ VIEWS, XR HIP LEFT 2 OR 3 VIEWS, XR TIBIA FIBULA LEFT 2+ VIEWS COMPARISON: None. FINDINGS: Mancilla catheter in situ. Excreted contrast present within the urinary bladder. Femoral heads are well-seated within the acetabula. Acute displaced, foreshortened, angulated mid to distal femoral diaphyseal fracture. Few adjacent small ossific fragments. Approximately two thirds shaft width anterior and one shaft width lateral displacement. 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 Patellar enthesopathy. No significant suprapatellar joint effusion. Mild osteoarthritic change about the ankle. Procedure Note Alec Augustin MD - 05/04/2025 CLINICAL INDICATION: trauma TECHNIQUE: XR KNEE LEFT 3 VIEWS, XR FEMUR LEFT 2+ VIEWS, XR HIP LEFT 2 OR 3 VIEWS, XRTIBIA FIBULA LEFT 2+ VIEWS COMPARISON: None. FINDINGS: Mancilla catheter in situ. Excreted contrast present within the urinarybladder. Femoral heads are well-seated within the acetabula. Acute displaced, foreshortened, angulated mid to distal femoral diaphysealfracture. Few adjacent small ossific fragments. Approximately two thirdsshaft width anterior and one shaft width lateral displacement. 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 Patellar enthesopathy.No significant suprapatellar joint effusion. Mild osteoarthritic changeabout the ankle. IMPRESSION: Acute displaced, foreshortened, and angulated mid to distal femoraldiaphyseal fracture as above. CRITICAL RESULT: No. COMMUNICATION: Per this written report. Drafted by Alec Augustin MD on 05/04/2025 9:25 PM Final report signed by Alec Augustin MD on 05/04/2025 9:28 PM Gauri Hall MD IMG XR PROCEDURES Final Result * XR Hip Left 2 or 3 Views (05/04/2025 9:13 PM EDT) Anatomical Region Laterality Modality Lower Extremities, Hip Left Digital R adiography Impressions 05/04/2025 9:28 PM EDT Acute displaced, foreshortened, and angulated mid to distal femoral diaphyseal fracture as above. CRITICAL RESULT: No. COMMUNICATION: Per this written report. Drafted by Alec Augustin MD on 05/04/2025 9:25 PM Final report signed by Alec Augustin MD on 05/04/2025 9:28 PM Narrative 05/04/2025 9:28 PM EDT CLINICAL INDICATION: trauma TECHNIQUE: XR KNEE LEFT 3 VIEWS, XR FEMUR LEFT 2+ VIEWS, XR HIP LEFT 2 OR 3 VIEWS, XR TIBIA FIBULA LEFT 2+ VIEWS COMPARISON: None. FINDINGS: Mancilla catheter in situ. Excreted contrast present within the urinary bladder. Femoral heads are well-seated within the acetabula. Acute displaced, foreshortened, angulated mid to distal femoral diaphyseal fracture. Few adjacent small ossific fragments. Approximately two thirds shaft width anterior and one shaft width lateral displacement. 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 Patellar enthesopathy. No significant suprapatellar joint effusion. Mild osteoarthritic change about the ankle. Procedure Note Alec Augustin MD - 05/04/2025 CLINICAL INDICATION: trauma TECHNIQUE: XR KNEE LEFT 3 VIEWS, XR FEMUR LEFT 2+ VIEWS, XR HIP LEFT 2 OR 3 VIEWS, XRTIBIA FIBULA LEFT 2+ VIEWS COMPARISON: None. FINDINGS: Mancilla catheter in situ. Excreted contrast present within the urinarybladder. Femoral heads are well-seated within the acetabula. Acute displaced, foreshortened, angulated mid to distal femoral diaphysealfracture. Few adjacent small ossific fragments. Approximately two thirdsshaft width anterior and one shaft width lateral displacement. 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 Patellar enthesopathy.No significant suprapatellar joint effusion. Mild osteoarthritic changeabout the ankle. IMPRESSION: Acute displaced, foreshortened, and angulated mid to distal femoraldiaphyseal fracture as above. CRITICAL RESULT: No. COMMUNICATION: Per this written report. Drafted by Alec Augustin MD on 05/04/2025 9:25 PM Final report signed by Alec Augustin MD on 05/04/2025 9:28 PM us Gauri Hall MD IMG XR PROCEDURES Final Result * XR Knee Left 3 Views (05/04/2025 9:13 PM EDT) Anatomical Region Laterality Modality Lower Extremities, Knee Left Digital Radiography Impressions 05/04/2025 9:28 PM EDT Acute displaced, foreshortened, and angulated mid to distal femoral diaphyseal fracture as above. CRITICAL RESULT: No. COMMUNICATION: Per this written report. Drafted by Alec Augustin MD on 05/04/2025 9:25 PM Final report signed by Alec Augustin MD on 05/04/2025 9:28 PM Narrative 05/04/2025 9:28 PM EDT CLINICAL INDICATION: trauma TECHNIQUE: XR KNEE LEFT 3 VIEWS, XR FEMUR LEFT 2+ VIEWS, XR HIP LEFT 2 OR 3 VIEWS, XR TIBIA FIBULA LEFT 2+ VIEWS COMPARISON: None. FINDINGS: Macnilla catheter in situ. Excreted contrast present within the urinary bladder. Femoral heads are well-seated within the acetabula. Acute displaced, foreshortened, angulated mid to distal femoral diaphyseal fracture. Few adjacent small ossific fragments. Approximately two thirds shaft width anterior and one shaft width lateral displacement. 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 Patellar enthesopathy. No significant suprapatellar joint effusion. Mild osteoarthritic change about the ankle. Procedure Note Alec Augustin MD - 05/04/2025 CLINICAL INDICATION: trauma TECHNIQUE: XR KNEE LEFT 3 VIEWS, XR FEMUR LEFT 2+ VIEWS, XR HIP LEFT 2 OR 3 VIEWS, XRTIBIA FIBULA LEFT 2+ VIEWS COMPARISON: None. FINDINGS: Mancilla catheter in situ. Excreted contrast present within the urinarybladder. Femoral heads are well-seated within the acetabula. Acute displaced, foreshortened, angulated mid to distal femoral diaphysealfracture. Few adjacent small ossific fragments. Approximately two thirdsshaft width anterior and one shaft width lateral displacement. 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 Patellar enthesopathy.No significant suprapatellar joint effusion. Mild osteoarthritic changeabout the ankle. IMPRESSION: Acute displaced, foreshortened, and angulated mid to distal femoraldiaphyseal fracture as above. CRITICAL RESULT: No. COMMUNICATION: Per this written report. Drafted by Alec Augustin MD on 05/04/2025 9:25 PM Final report signed by Alec Augustin MD on 05/04/2025 9:28 PM Gauri Hall MD IMG XR PROCEDURES Final Result * XR Femur Left 2+ Views (05/04/2025 9:13 PM EDT) Anatomical Region Laterality Modality Lower Extremities, Femur Left Digital Radiography Impressions 05/04/2025 9:28 PM EDT Acute displaced, foreshortened, and angulated mid to distal femoral diaphyseal fracture as above. CRITICAL RESULT: No. COMMUNICATION: Per this written report. Drafted by Alec Augustin MD on 05/04/2025 9:25 PM Final report signed by Alec Augustin MD on 05/04/2025 9:28 PM Narrative 05/04/2025 9:28 PM EDT CLINICAL INDICATION: trauma TECHNIQUE: XR KNEE LEFT 3 VIEWS, XR FEMUR LEFT 2+ VIEWS, XR HIP LEFT 2 OR 3 VIEWS, XR TIBIA FIBULA LEFT 2+ VIEWS COMPARISON: None. FINDINGS: Mancilla catheter in situ. Excreted contrast present within the urinary bladder. Femoral heads are well-seated within the acetabula. Acute displaced, foreshortened, angulated mid to distal femoral diaphyseal fracture. Few adjacent small ossific fragments. Approximately two thirds shaft width anterior and one shaft width lateral displacement. 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 Patellar enthesopathy. No significant suprapatellar joint effusion. Mild osteoarthritic change about the ankle. Procedure Note Alec Augustin MD - 05/04/2025 CLINICAL INDICATION: trauma TECHNIQUE: XR KNEE LEFT 3 VIEWS, XR FEMUR LEFT 2+ VIEWS, XR HIP LEFT 2 OR 3 VIEWS, XRTIBIA FIBULA LEFT 2+ VIEWS COMPARISON: None. FINDINGS: Mancilla catheter in situ. Excreted contrast present within the urinarybladder. Femoral heads are well-seated within the acetabula. Acute displaced, foreshortened, angulated mid to distal femoral diaphysealfracture. Few adjacent small ossific fragments. Approximately two thirdsshaft width anterior and one shaft width lateral displacement. 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 Patellar enthesopathy.No significant suprapatellar joint effusion. Mild osteoarthritic changeabout the ankle. IMPRESSION: Acute displaced, foreshortened, and angulated mid to distal femoraldiaphyseal fracture as above. CRITICAL RESULT: No. COMMUNICATION: Per this written report. Drafted by Alec Augustin MD on 05/04/2025 9:25 PM Final report signed by Alec Augustin MD on 05/04/2025 9:28 PM us Gauri Hall MD IMG XR PROCEDURES Final Result * (ABNORMAL) Fentanyl Urine Confirm (05/04/2025 8:48 PM EDT) Fentanyl 1(H) <1 ng/mL 05/07/2025 12:00 PM EDT [facility] Norfentanyl <2 <2 ng/mL 05/07/2025 12:00 PM EDT [facility] Urine Urine specimen obtained by clean catch procedure / Unknown Non-blood Collection / Unknown 05/04/2025 8:48 PM EDT 05/04/2025 8:50 PM EDT Narrative [facility] - 05/07/2025 12:00 PM EDT Drug analysis is confirmed by LC-MS/MS (LC Tandem Mass Spectrometry) on Urine specimens. This test was developed and its performance characteristics determined by [facility]. It has not been cleared or approved by the FDA. The laboratory is regulated under CLIA as qualified to perform high-complexity testing. This test is used for clinical purposes. Testing is performed at the [facility]. Gauri Hall MD LAB URINE ORDERABLES Final Resu lt Performing Organization Address [facility] Co de Phone Number [facility] [address] [place] [address] * Amphetamine Urine Confirm LCMSMS (05/04/2025 8:48 PM EDT) Amphetamine <50 <50 ng/mL 05/07/2025 12:00 PM EDT [facility] Methamphetamine <50 <50 ng/mL 12:00 PM EDT [facility] MDA <50 <50 ng/mL 05/07/2025 12:00 PM EDT [facility] MDMA <50 <50 ng/mL 05/07/2025 12:00 PM EDT [facility] Urine Urine specimen obtained by clean catch procedure / Unknown Non-blood Collection / Unknown 05/04/2025 8:48 PM EDT 05/04/2025 8:50 PM EDT Narrative [facility] - 05/07/2025 12:00 PM EDT Drug analysis is confirmed by LC-MS/MS (LC Tandem Mass Spectrometry) on Urine specimens. This test was developed and its performance characteristics determined by [facility]. It has not been cleared or approved by the FDA. The laboratory is regulated under CLIA as qualified to perform high-complexity testing. This test is used for clinical purposes. Testing is performed at the [facility], [facility]. Gauri Hall MD LAB URINE ORDERABLES Final Resu lt Performing Organization Address [facility] Co de Phone Number [facility] [address] [place] [address] * Urinalysis Microscopic Examination (05/04/2025 8:48 PM EDT) Urine Urine specimen obtained by clean catch procedure / Unknown Non-blood Collection / Unknown 05/04/2025 8:48 PM EDT 05/04/2025 8:50 PM EDT us Gauri Hall MD LAB URINE ORDERABLES Final Resu lt [facility] [address] [place] [address] * (ABNORMAL) Urinalysis with reflex microscopic (Culture NOT Included) (05/04/2025 8:48 PM EDT) Color, Urine Yellow LAB URINALYSIS - AUTOMATED METHOD 05/04/2025 9:22 PM EDT [facility] Clarity, Urine Clear LAB URINALYSIS - AUTOMATED METHOD 05/04/2025 9:22 PM EDT [facility] Spec [place], Urine >1.030(H) 1.005 - 1.030 LAB URINALYSIS - AUTOMATED METHOD 05/04/2025 9:22 PM EDT [facility] pH, Urine 6.0 5.0 - 8.0 LAB URINALYSIS - AUTOMATED METHOD 05/04/2025 9:22 PM EDT [facility] Protein, Urine 100(A) Negative mg/dL LAB URINALYSIS - AUTOMATED METHOD 05/04/2025 9:22 PM EDT [facility] Glucose, Urine Negative Negative mg/dL LAB URINALYSIS - AUTOMATED METHOD 05/04/2025 9:22 PM EDT [facility] Ketones, Urine Negative Negative mg/dL LAB URINALYSIS - AUTOMATED METHOD 05/04/2025 9:22 PM EDT [facility] Blood, Urine Large(A) Negative LAB URINALYSIS - AUTOMATED METHOD 05/04/2025 9:22 PM EDT [facility] Bilirubin, Urine Negative Negative LAB URINALYSIS - AUTOMATED METHOD 05/04/2025 9:22 PM EDT [facility] Urobilinogen, Urine 1.0 0.2 to 1.0 mg/dL LAB URINALYSIS - AUTOMATED METHOD 05/04/2025 9:22 PM EDT [facility] Leukocytes, Urine Negative Negative LAB URINALYSIS - AUTOMATED METHOD 05/04/2025 9:22 PM EDT [facility] Nitrite, Urine Negative Negative LAB URINALYSIS - AUTOMATED METHOD 05/04/2025 9:22 PM EDT [facility] RBC, Urine 31 - 50(A) 0 to 3 /HPF LAB URINALYSIS - AUTOMATED METHOD 05/04/2025 9:22 PM EDT [facility] Comment:This result was prev iously suppressed from the chart. WBC, Urine 0 - 5 0 to 5 /HPF LAB URINALYSIS - AUTOMATED METHOD 05/04/2025 9:22 PM EDT [facility] Comment:This result was prev iously suppressed from the chart. Squamous Epithelial Cells 0 - 2 0 to 5 /HPF LAB URINALYSIS - AUTOMATED METHOD 05/04/2025 9:22 PM EDT [facility] Comment:This result was prev iously suppressed from the chart. Hyaline Casts 11 - 20(A) 0 to 5 /LPF LAB URINALYSIS - AUTOMATED METHOD 05/04/2025 9:22 PM EDT [facility] Comment:This result was prev iously suppressed from the chart. Bacteria, Urine Negative Negative LAB URINALYSIS - AUTOMATED METHOD 05/04/2025 9:22 PM EDT [facility] Comment:This result was prev iously suppressed from the chart. Amorphous Crystals Present Absent LAB URINALYSIS - AUTOMATED METHOD 05/04/2025 9:22 PM EDT [facility] Comment:This result was prev iously suppressed from the chart. Mucus Present LAB URINALYSIS - AUTOMATED METHOD 05/04/2025 9:22 PM EDT [facility] Comment:This result was prev iously suppressed from the chart. Urine Urine specimen obtained by clean catch procedure / Unknown Non-blood Collection / Unknown 05/04/2025 8:48 PM EDT 05/04/2025 8:50 PM EDT us Gauri Hall MD LAB URINE ORDERABLES Final Resu lt [facility] [address] [place] [address] * Drug Abuse Screen, Urine (05/04/2025 8:48 PM EDT) Amphetamine Screen Urine Presumptive positive. Confirmation by LC-MS/MS to follow. Cutoff: 500 ng/mL 05/04/2025 9:08 PM EDT [facility] Benzodiazepines Screen Urine Negative Cutoff: 200 ng/mL 05/04/2025 9:08 PM EDT [facility] Cannabinoid Screen Urine Negative Cutoff: 50 ng/mL 05/04/2025 9:08 PM EDT [facility] Cocaine Screen Urine Negative Cutoff: 300 ng/mL 05/04/2025 9:08 PM EDT [facility] Barbiturate Screen Urine Negative Cutoff: 200 ng/mL 05/04/2025 9:08 PM EDT [facility] Opiate Screen Urine Negative Cutoff: 300 ng/mL 05/04/2025 9:08 PM EDT [facility] Methadone Screen Urine Negative Cutoff: 300 ng/mL 05/04/2025 9:08 PM EDT [facility] Buprenorphine Screen Urine Negative Cutoff: 10 ng/mL 05/04/2025 9:08 PM EDT [facility] Fentanyl Screen Urine Presumptive positive. Confirmation by LC-MS/MS to follow. Cutoff: 1 ng/mL 05/04/2025 9:08 PM EDT [facility] Oxycodone Screen Urine Negative Cutoff: 100 ng/mL 05/04/2025 9:08 PM EDT [facility] Urine Urine specimen obtained by clean catch procedure / Unknown Non-blood Collection / Unknown 05/04/2025 8:48 PM EDT 05/04/2025 8:50 PM EDT us Gauri Hall MD LAB URINE ORDERABLES Final Resu lt [facility] [address] [place] [address] * Hepatitis C Antibody - ED (05/04/2025 8:36 PM EDT) Hepatitis C Antibody Negative Negative 05/04/2025 9:25 PM EDT [facility] Blood Venous blood specimen / Unknown Venipuncture / Unknown 05/04/2025 8:36 PM EDT 05/04/2025 8:43 PM EDT us Gauri Hall MD LAB BLOOD ORDERABLES Final Resu lt [facility] [address] [place] [address] * CT Angio Abdomen Pelvis w Runoff (05/04/2025 8:29 PM EDT) Anatomical Region Laterality Modality Pelvis and lower extremeties Bilateral Com puted Tomography Impressions 05/05/2025 12:16 AM EDT 1. No acute finding in the chest, abdomen, or pelvis. 2. Displaced fracture of the mid to distal left femoral diaphysis. 3. No acute vascular injury of the lower extremities. 4. No acute fracture of the spine. 5. No acute finding of the bony pelvis. ATTENDING COMMENT: There is diffuse fat stranding adjacent to the root of mesentery which extends adjacent to the uncinate process and head of pancreas and correlation with serum lipase levels is recommended. Stranding also extends adjacent to the inferior second and third portions of the duodenum. There is limited evaluation of the SMA secondary to motion artifacts through this artery. The celiac artery and its branches as well as the renal arteries and JAMES appear to be patent. The SMA is patent; however, limited evaluation for subtle injury. Fat stranding surrounds the SMV which appears to remain patent. There is a moderate retroperitoneal hematoma with diffuse adjacent mesenteric fat stranding within the posterior left lower quadrant extending adjacent to the psoas muscle and overlying the anterior aorta and IVC. No definite active contrast extravasation into this hematoma is identified. There is noted to be a slightly wedge-shaped low-attenuation region within the posterior midportion of the left kidney which in the setting of trauma would be concerning for traumatic renal injury and/or infarction which appears to be a grade 3 injury without definite extension into the collecting system. Questionable soft tissue deformity of the volar left knee. The bilateral anterior tibial arteries appear to terminate at the level of the distal ankle/proximal foot. Given the symmetry of these findings, this is unlikely to represent acute traumatic injury and may represent sequela of contrast timing bolus and/or congenital findings. Correlation with Doppler would be recommended. CRITICAL RESULT: No. COMMUNICATION: Changes to this report were discussed with Joan Kellogg of the emergency room service by Dr. Monroe via telephone at [phone] on 05/05/2025. Preliminary report signed by Rad Monroe MD on 05/04/2025 11:25 PM By electronically signing this report, I, the attending physician, attest that I have personally reviewed the images/data for the above examination(s) and agree with the final edited report. Drafted by Rad Monroe MD on 05/04/2025 10:06 PM Final report signed by Nakia Jimenez MD on 05/05/2025 12:16 AM Narrative 05/05/2025 12:16 AM EDT CLINICAL INDICATION: Poly trauma TECHNIQUE: Spiral axial CT images of the chest, abdomen, and pelvis were obtained from the thoracic inlet through the bilateral lower extremities following the administration of IV contrast per the CTA chest and abdomen protocol. Multiplanar reformatted images in the coronal and sagittal planes, as well as multiplanar MIP images, were generated from the axial data set to facilitate diagnostic accuracy and/or surgical planning. Spiral axial CT images of the cervical spine (to include the cervicothoracic junction) were obtained without the administration of contrast. Multiplanar reformatted images in the coronal and sagittal planes were generated from the axial data set to facilitate diagnostic accuracy and/or surgical planning. Contiguous axial CT images of the entire thoracic spine were reformatted from a CT of the chest/aorta. Multiplanar reformatted images in the coronal and sagittal planes were generated from the axial data set to facilitate diagnostic accuracy and/or surgical planning. Contiguous axial CT images of the entire lumbar spine were reformatted from a CT of the abdomen and pelvis. Multiplanar reformatted images in the coronal and sagittal planes were generated from the axial data set to facilitate diagnostic accuracy and/or surgical planning. Contiguous axial CT images of the entire cole pelvis were reformatted from a CT of the abdomen and pelvis. Multiplanar reformatted images in the coronal and sagittal planes were generated from the axial data set to facilitate diagnostic accuracy and/or surgical planning. 200 mL of Omnipaque 350 was administered intravenously. Total DLP (Dose-Length Product): 8059.25 mGy.cm. Please note: The reported value represents the total of one or more individual components during the CT acquisition on this date and at this time, and as such, the same value may appear in more than one CT report depending on the interpreting/reporting physicians. COMPARISON: None. FINDINGS: CHEST Vessels/Cardiovascular: No vascular injury of the thoracic aorta or great vessels. No periaortic or mediastinal hematoma. No filling defect within the pulmonary artery. Mediastinum: No pericardial effusion. No pneumomediastinum. Lymph nodes: No enlarged mediastinal or hilar lymph nodes. No axillary lymphadenopathy. Lungs and pleura: Minimal dependent atelectasis without focal consolidation or suspicious pulmonary nodule. No pleural effusion or pneumothorax. Chest Wall: No chest wall hematoma or soft tissue swelling. Bones: No displaced fractures or aggressive osseous lesions. ABDOMEN and PELVIS Liver/Gallbladder/Biliary: Homogenous without focal lesion. Normal gallbladder without inflammatory changes. No intra- or extrahepatic biliary ductal dilatation. Spleen: Homogenous enhancement without focal lesion. Pancreas: Homogenous enhancement without focal lesion. No pancreatic ductal dilatation. Adrenal Glands: Morphologically normal. Kidneys: Symmetric nephrogram and excretion. No suspicious mass or cyst. No renal or uretal calculus. No hydronephrosis. Vasculature: Patent aortoiliac vasculature. Patent splenoportal veins. Lymph Nodes: No enlarged mesenteric or retroperitoneal lymph nodes. Fluid survey: No free intraperitoneal abdominal or pelvic fluid. GI tract: Normal appearing distal esophagus, and stomach. Nondilated small bowel, and colon. Normal appendix without inflammatory changes. Urinary bladder and pelvic viscera: No bladder wall thickening. No suspicious pelvic finding. Body wall: No abdominal wall hematoma. Bones: No displaced fractures or aggressive osseous lesions. LOWER EXTREMITIES Right Lower Extremity: No acute vascular injury or occlusion of the right common iliac through the popliteal artery. Patent anterior tibial, posterior tibial, and peroneal arteries. Left Lower Extremity: No acute vascular injury or occlusion of the left common iliac through the popliteal artery. Patent anterior tibial, posterior tibial, and peroneal arteries. Displaced fracture of the mid to distal femoral diaphysis with posterior displacement of the distal fracture fragments. Apparent left bipartite patella versus sequela of old patellar fracture.. CERVICAL SPINE: Vertebra: Limited evaluation of the vertebral bodies especially C6-T1 secondary to photon starvation. No acute fracture. Discs: Intervertebral disc space heights are preserved. Alignment: Normal spinal alignment. Degenerative Changes: None. Soft tissues:No significant soft tissue swelling. THORACIC SPINE: Vertebra: No acute fracture. Discs: Intervertebral disc space heights are preserved. Alignment: Normal spinal alignment. Degenerative Changes: None. Soft tissues:No significant soft tissue swelling. LUMBAR SPINE: Vertebra: There are 6 lumbar type vertebral bodies. No acute fracture. Bilateral L5 pars defects. Discs: Intervertebral disc space heights are preserved. Alignment: Normal spinal alignment. Degenerative Changes: None. Soft tissues:No significant soft tissue swelling. BONY PELVIS: No acute fracture or dislocation. SI joints are patent. No pubic symphysis diastasis. Procedure Note True, Nakia Barros MD - 05/05/2025 CLINICAL INDICATION: Poly trauma TECHNIQUE: Spiral axial CT images of the chest, abdomen, and pelvis were obtainedfrom the thoracic inlet through the bilateral lower extremities followingthe administration of IV contrast per the CTA chest and abdomen protocol.Multiplanar reformatted images in the coronal and sagittal planes, as wellas multiplanar MIP images, were generated from the axial data set tofacilitate diagnostic accuracy and/or surgical planning. Spiral axial CT images of the cervical spine (to include thecervicothoracic junction) were obtained without the administration ofcontrast. Multiplanar reformatted images in the coronal and sagittalplanes were generated from the axial data set to facilitate diagnosticaccuracy and/or surgical planning. Contiguous axial CT images of the entire thoracic spine were reformattedfrom a CT of the chest/aorta. Multiplanar reformatted images in thecoronal and sagittal planes were generated from the axial data set tofacilitate diagnostic accuracy and/or surgical planning. Contiguous axial CT images of the entire lumbar spine were reformattedfrom a CT of the abdomen and pelvis. Multiplanar reformatted images in thecoronal and sagittal planes were generated from the axial data set tofacilitate diagnostic accuracy and/or surgical planning. Contiguous axial CT images of the entire cole pelvis were reformattedfrom a CT of the abdomen and pelvis. Multiplanar reformatted images in thecoronal and sagittal planes were generated from the axial data set tofacilitate diagnostic accuracy and/or surgical planning. 200 mL of Omnipaque 350 was administered intravenously. Total DLP (Dose-Length Product): 8059.25 mGy.cm. Please note: The reportedvalue represents the total of one or more individual components during theCT acquisition on this date and at this time, and as such, the same valuemay appear in more than one CT report depending on theinterpreting/reporting physicians. COMPARISON: None. FINDINGS: CHEST Vessels/Cardiovascular: No vascular injury of the thoracic aorta or greatvessels. No periaortic or mediastinal hematoma. No filling defect withinthe pulmonary artery. Mediastinum: No pericardial effusion. No pneumomediastinum. Lymph nodes: No enlarged mediastinal or hilar lymph nodes. No axillarylymphadenopathy. Lungs and pleura: Minimal dependent atelectasis without focalconsolidation or suspicious pulmonary nodule. No pleural effusion orpneumothorax. Chest Wall: No chest wall hematoma or soft tissue swelling. Bones: No displaced fractures or aggressive osseous lesions. ABDOMEN and PELVIS Liver/Gallbladder/Biliary: Homogenous without focal lesion. Normalgallbladder without inflammatory changes. No intra- or extrahepaticbiliary ductal dilatation. Spleen: Homogenous enhancement without focal lesion. Pancreas: Homogenous enhancement without focal lesion. No pancreaticductal dilatation. Adrenal Glands: Morphologically normal. Kidneys: Symmetric nephrogram and excretion. No suspicious mass or cyst.No renal or uretal calculus. No hydronephrosis. Vasculature: Patent aortoiliac vasculature. Patent splenoportal veins. Lymph Nodes: No enlarged mesenteric or retroperitoneal lymph nodes. Fluid survey: No free intraperitoneal abdominal or pelvic fluid. GI tract: Normal appearing distal esophagus, and stomach. Nondilated smallbowel, and colon. Normal appendix without inflammatory changes. Urinary bladder and pelvic viscera: No bladder wall thickening. Nosuspicious pelvic finding. Body wall: No abdominal wall hematoma. Bones: No displaced fractures or aggressive osseous lesions. LOWER EXTREMITIES Right Lower Extremity: No acute vascular injury or occlusion of the rightcommon iliac through the popliteal artery. Patent anterior tibial,posterior tibial, and peroneal arteries. Left Lower Extremity: No acute vascular injury or occlusion of the leftcommon iliac through the popliteal artery. Patent anterior tibial,posterior tibial, and peroneal arteries. Displaced fracture of the mid to distal femoral diaphysis with posteriordisplacement of the distal fracture fragments. Apparent left bipartitepatella versus sequela of old patellar fracture.. CERVICAL SPINE: Vertebra: Limited evaluation of the vertebral bodies especially C6-[id number] to photon starvation. No acute fracture. Discs: Intervertebral disc space heights are preserved. Alignment: Normal spinal alignment. Degenerative Changes: None. Soft tissues:No significant soft tissue swelling. THORACIC SPINE: Vertebra: No acute fracture. Discs: Intervertebral disc space heights are preserved. Alignment: Normal spinal alignment. Degenerative Changes: None. Soft tissues:No significant soft tissue swelling. LUMBAR SPINE: Vertebra: There are 6 lumbar type vertebral bodies. No acute fracture.Bilateral L5 pars defects. Discs: Intervertebral disc space heights are preserved. Alignment: Normal spinal alignment. Degenerative Changes: None. Soft tissues:No significant soft tissue swelling. BONY PELVIS: No acute fracture or dislocation. SI joints are patent. No pubic symphysisdiastasis. IMPRESSION: 1.No acute finding in the chest, abdomen, or pelvis. 2.Displaced fracture of the mid to distal left femoral diaphysis. 3.No acute vascular injury of the lower extremities. 4.No acute fracture of the spine. 5.No acute finding of the bony pelvis. ATTENDING COMMENT: There is diffuse fat stranding adjacent to the root of mesentery whichextends adjacent to the uncinate process and head of pancreas andcorrelation with serum lipase levels is recommended. Stranding alsoextends adjacent to the inferior second and third portions of theduodenum. There is limited evaluation of the SMA secondary to motionartifacts through this artery. The celiac artery and its branches as wellas the renal arteries and JAMES appear to be patent. The SMA is patent;however, limited evaluation for subtle injury. Fat stranding surrounds theSMV which appears to remain patent. There is a moderate retroperitoneal hematoma with diffuse adjacentmesenteric fat stranding within the posterior left lower quadrantextending adjacent to the psoas muscle and overlying the anterior aortaand IVC. No definite active contrast extravasation into this hematoma isidentified. There is noted to be a slightly wedge-shaped low-attenuation region withinthe posterior midportion of the left kidney which in the setting of traumawould be concerning for traumatic renal injury and/or infarction whichappears to be a grade 3 injury without definite extension into thecollecting system. Questionable soft tissue deformity of the volar left knee. The bilateral anterior tibial arteries appear to terminate at the level ofthe distal ankle/proximal foot. Given the symmetry of these findings, thisis unlikely to represent acute traumatic injury and may represent sequelaof contrast timing bolus and/or congenital findings. Correlation withDoppler would be recommended. CRITICAL RESULT: No. COMMUNICATION: Changes to this report were discussed with Joan Kellogg of the emergencyroom service by Dr. Monroe via telephone at [phone] on 05/05/2025. Preliminary report signed by Rad Monroe MD on 05/04/2025 11:25 PM By electronically signing this report, I, the attending physician, attestthat I have personally reviewed the images/data for the aboveexamination(s) and agree with the final edited report. Drafted by Rad Monroe MD on 05/04/2025 10:06 PM Final report signed by Nakia Jimenez MD on 05/05/2025 12:16 AM Royer Cortes MD IMG CT PROCEDURES Final Result * CT Bony Pelvis (05/04/2025 8:29 PM EDT) Anatomical Region Laterality Modality Pelvis Computed Tomogra phy Impressions 05/05/2025 12:16 AM EDT 1. No acute finding in the chest, abdomen, or pelvis. 2. Displaced fracture of the mid to distal left femoral diaphysis. 3. No acute vascular injury of the lower extremities. 4. No acute fracture of the spine. 5. No acute finding of the bony pelvis. ATTENDING COMMENT: There is diffuse fat stranding adjacent to the root of mesentery which extends adjacent to the uncinate process and head of pancreas and correlation with serum lipase levels is recommended. Stranding also extends adjacent to the inferior second and third portions of the duodenum. There is limited evaluation of the SMA secondary to motion artifacts through this artery. The celiac artery and its branches as well as the renal arteries and JAMES appear to be patent. The SMA is patent; however, limited evaluation for subtle injury. Fat stranding surrounds the SMV which appears to remain patent. There is a moderate retroperitoneal hematoma with diffuse adjacent mesenteric fat stranding within the posterior left lower quadrant extending adjacent to the psoas muscle and overlying the anterior aorta and IVC. No definite active contrast extravasation into this hematoma is identified. There is noted to be a slightly wedge-shaped low-attenuation region within the posterior midportion of the left kidney which in the setting of trauma would be concerning for traumatic renal injury and/or infarction which appears to be a grade 3 injury without definite extension into the collecting system. Questionable soft tissue deformity of the volar left knee. The bilateral anterior tibial arteries appear to terminate at the level of the distal ankle/proximal foot. Given the symmetry of these findings, this is unlikely to represent acute traumatic injury and may represent sequela of contrast timing bolus and/or congenital findings. Correlation with Doppler would be recommended. CRITICAL RESULT: No. COMMUNICATION: Changes to this report were discussed with Joan Kellogg of the emergency room service by Dr. Monroe via telephone at [phone] on 05/05/2025. Preliminary report signed by Rad Monroe MD on 05/04/2025 11:25 PM By electronically signing this report, I, the attending physician, attest that I have personally reviewed the images/data for the above examination(s) and agree with the final edited report. Drafted by Rad Monroe MD on 05/04/2025 10:06 PM Final report signed by Nakia Jimenez MD on 05/05/2025 12:16 AM Narrative 05/05/2025 12:16 AM EDT CLINICAL INDICATION: Poly trauma TECHNIQUE: Spiral axial CT images of the chest, abdomen, and pelvis were obtained from the thoracic inlet through the bilateral lower extremities following the administration of IV contrast per the CTA chest and abdomen protocol. Multiplanar reformatted images in the coronal and sagittal planes, as well as multiplanar MIP images, were generated from the axial data set to facilitate diagnostic accuracy and/or surgical planning. Spiral axial CT images of the cervical spine (to include the cervicothoracic junction) were obtained without the administration of contrast. Multiplanar reformatted images in the coronal and sagittal planes were generated from the axial data set to facilitate diagnostic accuracy and/or surgical planning. Contiguous axial CT images of the entire thoracic spine were reformatted from a CT of the chest/aorta. Multiplanar reformatted images in the coronal and sagittal planes were generated from the axial data set to facilitate diagnostic accuracy and/or surgical planning. Contiguous axial CT images of the entire lumbar spine were reformatted from a CT of the abdomen and pelvis. Multiplanar reformatted images in the coronal and sagittal planes were generated from the axial data set to facilitate diagnostic accuracy and/or surgical planning. Contiguous axial CT images of the entire cole pelvis were reformatted from a CT of the abdomen and pelvis. Multiplanar reformatted images in the coronal and sagittal planes were generated from the axial data set to facilitate diagnostic accuracy and/or surgical planning. 200 mL of Omnipaque 350 was administered intravenously. Total DLP (Dose-Length Product): 8059.25 mGy.cm. Please note: The reported value represents the total of one or more individual components during the CT acquisition on this date and at this time, and as such, the same value may appear in more than one CT report depending on the interpreting/reporting physicians. COMPARISON: None. FINDINGS: CHEST Vessels/Cardiovascular: No vascular injury of the thoracic aorta or great vessels. No periaortic or mediastinal hematoma. No filling defect within the pulmonary artery. Mediastinum: No pericardial effusion. No pneumomediastinum. Lymph nodes: No enlarged mediastinal or hilar lymph nodes. No axillary lymphadenopathy. Lungs and pleura: Minimal dependent atelectasis without focal consolidation or suspicious pulmonary nodule. No pleural effusion or pneumothorax. Chest Wall: No chest wall hematoma or soft tissue swelling. Bones: No displaced fractures or aggressive osseous lesions. ABDOMEN and PELVIS Liver/Gallbladder/Biliary: Homogenous without focal lesion. Normal gallbladder without inflammatory changes. No intra- or extrahepatic biliary ductal dilatation. Spleen: Homogenous enhancement without focal lesion. Pancreas: Homogenous enhancement without focal lesion. No pancreatic ductal dilatation. Adrenal Glands: Morphologically normal. Kidneys: Symmetric nephrogram and excretion. No suspicious mass or cyst. No renal or uretal calculus. No hydronephrosis. Vasculature: Patent aortoiliac vasculature. Patent splenoportal veins. Lymph Nodes: No enlarged mesenteric or retroperitoneal lymph nodes. Fluid survey: No free intraperitoneal abdominal or pelvic fluid. GI tract: Normal appearing distal esophagus, and stomach. Nondilated small bowel, and colon. Normal appendix without inflammatory changes. Urinary bladder and pelvic viscera: No bladder wall thickening. No suspicious pelvic finding. Body wall: No abdominal wall hematoma. Bones: No displaced fractures or aggressive osseous lesions. LOWER EXTREMITIES Right Lower Extremity: No acute vascular injury or occlusion of the right common iliac through the popliteal artery. Patent anterior tibial, posterior tibial, and peroneal arteries. Left Lower Extremity: No acute vascular injury or occlusion of the left common iliac through the popliteal artery. Patent anterior tibial, posterior tibial, and peroneal arteries. Displaced fracture of the mid to distal femoral diaphysis with posterior displacement of the distal fracture fragments. Apparent left bipartite patella versus sequela of old patellar fracture.. CERVICAL SPINE: Vertebra: Limited evaluation of the vertebral bodies especially C6-T1 secondary to photon starvation. No acute fracture. Discs: Intervertebral disc space heights are preserved. Alignment: Normal spinal alignment. Degenerative Changes: None. Soft tissues:No significant soft tissue swelling. THORACIC SPINE: Vertebra: No acute fracture. Discs: Intervertebral disc space heights are preserved. Alignment: Normal spinal alignment. Degenerative Changes: None. Soft tissues:No significant soft tissue swelling. LUMBAR SPINE: Vertebra: There are 6 lumbar type vertebral bodies. No acute fracture. Bilateral L5 pars defects. Discs: Intervertebral disc space heights are preserved. Alignment: Normal spinal alignment. Degenerative Changes: None. Soft tissues:No significant soft tissue swelling. BONY PELVIS: No acute fracture or dislocation. SI joints are patent. No pubic symphysis diastasis. Procedure Note True, Nakia Barros MD - 05/05/2025 CLINICAL INDICATION: Poly trauma TECHNIQUE: Spiral axial CT images of the chest, abdomen, and pelvis were obtainedfrom the thoracic inlet through the bilateral lower extremities followingthe administration of IV contrast per the CTA chest and abdomen protocol.Multiplanar reformatted images in the coronal and sagittal planes, as wellas multiplanar MIP images, were generated from the axial data set tofacilitate diagnostic accuracy and/or surgical planning. Spiral axial CT images of the cervical spine (to include thecervicothoracic junction) were obtained without the administration ofcontrast. Multiplanar reformatted images in the coronal and sagittalplanes were generated from the axial data set to facilitate diagnosticaccuracy and/or surgical planning. Contiguous axial CT images of the entire thoracic spine were reformattedfrom a CT of the chest/aorta. Multiplanar reformatted images in thecoronal and sagittal planes were generated from the axial data set tofacilitate diagnostic accuracy and/or surgical planning. Contiguous axial CT images of the entire lumbar spine were reformattedfrom a CT of the abdomen and pelvis. Multiplanar reformatted images in thecoronal and sagittal planes were generated from the axial data set tofacilitate diagnostic accuracy and/or surgical planning. Contiguous axial CT images of the entire cole pelvis were reformattedfrom a CT of the abdomen and pelvis. Multiplanar reformatted images in thecoronal and sagittal planes were generated from the axial data set tofacilitate diagnostic accuracy and/or surgical planning. 200 mL of Omnipaque 350 was administered intravenously. Total DLP (Dose-Length Product): 8059.25 mGy.cm. Please note: The reportedvalue represents the total of one or more individual components during theCT acquisition on this date and at this time, and as such, the same valuemay appear in more than one CT report depending on theinterpreting/reporting physicians. COMPARISON: None. FINDINGS: CHEST Vessels/Cardiovascular: No vascular injury of the thoracic aorta or greatvessels. No periaortic or mediastinal hematoma. No filling defect withinthe pulmonary artery. Mediastinum: No pericardial effusion. No pneumomediastinum. Lymph nodes: No enlarged mediastinal or hilar lymph nodes. No axillarylymphadenopathy. Lungs and pleura: Minimal dependent atelectasis without focalconsolidation or suspicious pulmonary nodule. No pleural effusion orpneumothorax. Chest Wall: No chest wall hematoma or soft tissue swelling. Bones: No displaced fractures or aggressive osseous lesions. ABDOMEN and PELVIS Liver/Gallbladder/Biliary: Homogenous without focal lesion. Normalgallbladder without inflammatory changes. No intra- or extrahepaticbiliary ductal dilatation. Spleen: Homogenous enhancement without focal lesion. Pancreas: Homogenous enhancement without focal lesion. No pancreaticductal dilatation. Adrenal Glands: Morphologically normal. Kidneys: Symmetric nephrogram and excretion. No suspicious mass or cyst.No renal or uretal calculus. No hydronephrosis. Vasculature: Patent aortoiliac vasculature. Patent splenoportal veins. Lymph Nodes: No enlarged mesenteric or retroperitoneal lymph nodes. Fluid survey: No free intraperitoneal abdominal or pelvic fluid. GI tract: Normal appearing distal esophagus, and stomach. Nondilated smallbowel, and colon. Normal appendix without inflammatory changes. Urinary bladder and pelvic viscera: No bladder wall thickening. Nosuspicious pelvic finding. Body wall: No abdominal wall hematoma. Bones: No displaced fractures or aggressive osseous lesions. LOWER EXTREMITIES Right Lower Extremity: No acute vascular injury or occlusion of the rightcommon iliac through the popliteal artery. Patent anterior tibial,posterior tibial, and peroneal arteries. Left Lower Extremity: No acute vascular injury or occlusion of the leftcommon iliac through the popliteal artery. Patent anterior tibial,posterior tibial, and peroneal arteries. Displaced fracture of the mid to distal femoral diaphysis with posteriordisplacement of the distal fracture fragments. Apparent left bipartitepatella versus sequela of old patellar fracture.. CERVICAL SPINE: Vertebra: Limited evaluation of the vertebral bodies especially C6-Q3ouuxsctax to photon starvation. No acute fracture. Discs: Intervertebral disc space heights are preserved. Alignment: Normal spinal alignment. Degenerative Changes: None. Soft tissues:No significant soft tissue swelling. THORACIC SPINE: Vertebra: No acute fracture. Discs: Intervertebral disc space heights are preserved. Alignment: Normal spinal alignment. Degenerative Changes: None. Soft tissues:No significant soft tissue swelling. LUMBAR SPINE: Vertebra: There are 6 lumbar type vertebral bodies. No acute fracture.Bilateral L5 pars defects. Discs: Intervertebral disc space heights are preserved. Alignment: Normal spinal alignment. Degenerative Changes: None. Soft tissues:No significant soft tissue swelling. BONY PELVIS: No acute fracture or dislocation. SI joints are patent. No pubic symphysisdiastasis. IMPRESSION: 1.No acute finding in the chest, abdomen, or pelvis. 2.Displaced fracture of the mid to distal left femoral diaphysis. 3.No acute vascular injury of the lower extremities. 4.No acute fracture of the spine. 5.No acute finding of the bony pelvis. ATTENDING COMMENT: There is diffuse fat stranding adjacent to the root of mesentery whichextends adjacent to the uncinate process and head of pancreas andcorrelation with serum lipase levels is recommended. Stranding alsoextends adjacent to the inferior second and third portions of theduodenum. There is limited evaluation of the SMA secondary to motionartifacts through this artery. The celiac artery and its branches as wellas the renal arteries and JAMES appear to be patent. The SMA is patent;however, limited evaluation for subtle injury. Fat stranding surrounds theSMV which appears to remain patent. There is a moderate retroperitoneal hematoma with diffuse adjacentmesenteric fat stranding within the posterior left lower quadrantextending adjacent to the psoas muscle and overlying the anterior aortaand IVC. No definite active contrast extravasation into this hematoma isidentified. There is noted to be a slightly wedge-shaped low-attenuation region withinthe posterior midportion of the left kidney which in the setting of traumawould be concerning for traumatic renal injury and/or infarction whichappears to be a grade 3 injury without definite extension into thecollecting system. Questionable soft tissue deformity of the volar left knee. The bilateral anterior tibial arteries appear to terminate at the level ofthe distal ankle/proximal foot. Given the symmetry of these findings, thisis unlikely to represent acute traumatic injury and may represent sequelaof contrast timing bolus and/or congenital findings. Correlation withDoppler would be recommended. CRITICAL RESULT: No. COMMUNICATION: Changes to this report were discussed with Joan Kellogg of the emergencyroom service by Dr. Monroe via telephone at [phone] on 05/05/2025. Preliminary report signed by Rad Monroe MD on 05/04/2025 11:25 PM By electronically signing this report, I, the attending physician, attestthat I have personally reviewed the images/data for the aboveexamination(s) and agree with the final edited report. Drafted by Rad Monroe MD on 05/04/2025 10:06 PM Final report signed by Nakia Jimenez MD on 05/05/2025 12:16 AM us Gauri Hall MD IMG CT PROCEDURES Final Result * CT Lumbar Spine wo IV Contrast (05/04/2025 8:29 PM EDT) Anatomical Region Laterality Modality Spine, L-spine Computed Tomogra phy Impressions 05/05/2025 12:16 AM EDT 1. No acute finding in the chest, abdomen, or pelvis. 2. Displaced fracture of the mid to distal left femoral diaphysis. 3. No acute vascular injury of the lower extremities. 4. No acute fracture of the spine. 5. No acute finding of the bony pelvis. ATTENDING COMMENT: There is diffuse fat stranding adjacent to the root of mesentery which extends adjacent to the uncinate process and head of pancreas and correlation with serum lipase levels is recommended. Stranding also extends adjacent to the inferior second and third portions of the duodenum. There is limited evaluation of the SMA secondary to motion artifacts through this artery. The celiac artery and its branches as well as the renal arteries and JAMES appear to be patent. The SMA is patent; however, limited evaluation for subtle injury. Fat stranding surrounds the SMV which appears to remain patent. There is a moderate retroperitoneal hematoma with diffuse adjacent mesenteric fat stranding within the posterior left lower quadrant extending adjacent to the psoas muscle and overlying the anterior aorta and IVC. No definite active contrast extravasation into this hematoma is identified. There is noted to be a slightly wedge-shaped low-attenuation region within the posterior midportion of the left kidney which in the setting of trauma would be concerning for traumatic renal injury and/or infarction which appears to be a grade 3 injury without definite extension into the collecting system. Questionable soft tissue deformity of the volar left knee. The bilateral anterior tibial arteries appear to terminate at the level of the distal ankle/proximal foot. Given the symmetry of these findings, this is unlikely to represent acute traumatic injury and may represent sequela of contrast timing bolus and/or congenital findings. Correlation with Doppler would be recommended. CRITICAL RESULT: No. COMMUNICATION: Changes to this report were discussed with Joan Kellogg of the emergency room service by Dr. Monroe via telephone at [phone] on 05/05/2025. Preliminary report signed by Rad Monroe MD on 05/04/2025 11:25 PM By electronically signing this report, I, the attending physician, attest that I have personally reviewed the images/data for the above examination(s) and agree with the final edited report. Drafted by Rad Monroe MD on 05/04/2025 10:06 PM Final report signed by Nakia Jimenez MD on 05/05/2025 12:16 AM Narrative 05/05/2025 12:16 AM EDT CLINICAL INDICATION: Poly trauma TECHNIQUE: Spiral axial CT images of the chest, abdomen, and pelvis were obtained from the thoracic inlet through the bilateral lower extremities following the administration of IV contrast per the CTA chest and abdomen protocol. Multiplanar reformatted images in the coronal and sagittal planes, as well as multiplanar MIP images, were generated from the axial data set to facilitate diagnostic accuracy and/or surgical planning. Spiral axial CT images of the cervical spine (to include the cervicothoracic junction) were obtained without the administration of contrast. Multiplanar reformatted images in the coronal and sagittal planes were generated from the axial data set to facilitate diagnostic accuracy and/or surgical planning. Contiguous axial CT images of the entire thoracic spine were reformatted from a CT of the chest/aorta. Multiplanar reformatted images in the coronal and sagittal planes were generated from the axial data set to facilitate diagnostic accuracy and/or surgical planning. Contiguous axial CT images of the entire lumbar spine were reformatted from a CT of the abdomen and pelvis. Multiplanar reformatted images in the coronal and sagittal planes were generated from the axial data set to facilitate diagnostic accuracy and/or surgical planning. Contiguous axial CT images of the entire cole pelvis were reformatted from a CT of the abdomen and pelvis. Multiplanar reformatted images in the coronal and sagittal planes were generated from the axial data set to facilitate diagnostic accuracy and/or surgical planning. 200 mL of Omnipaque 350 was administered intravenously. Total DLP (Dose-Length Product): 8059.25 mGy.cm. Please note: The reported value represents the total of one or more individual components during the CT acquisition on this date and at this time, and as such, the same value may appear in more than one CT report depending on the interpreting/reporting physicians. COMPARISON: None. FINDINGS: CHEST Vessels/Cardiovascular: No vascular injury of the thoracic aorta or great vessels. No periaortic or mediastinal hematoma. No filling defect within the pulmonary artery. Mediastinum: No pericardial effusion. No pneumomediastinum. Lymph nodes: No enlarged mediastinal or hilar lymph nodes. No axillary lymphadenopathy. Lungs and pleura: Minimal dependent atelectasis without focal consolidation or suspicious pulmonary nodule. No pleural effusion or pneumothorax. Chest Wall: No chest wall hematoma or soft tissue swelling. Bones: No displaced fractures or aggressive osseous lesions. ABDOMEN and PELVIS Liver/Gallbladder/Biliary: Homogenous without focal lesion. Normal gallbladder without inflammatory changes. No intra- or extrahepatic biliary ductal dilatation. Spleen: Homogenous enhancement without focal lesion. Pancreas: Homogenous enhancement without focal lesion. No pancreatic ductal dilatation. Adrenal Glands: Morphologically normal. Kidneys: Symmetric nephrogram and excretion. No suspicious mass or cyst. No renal or uretal calculus. No hydronephrosis. Vasculature: Patent aortoiliac vasculature. Patent splenoportal veins. Lymph Nodes: No enlarged mesenteric or retroperitoneal lymph nodes. Fluid survey: No free intraperitoneal abdominal or pelvic fluid. GI tract: Normal appearing distal esophagus, and stomach. Nondilated small bowel, and colon. Normal appendix without inflammatory changes. Urinary bladder and pelvic viscera: No bladder wall thickening. No suspicious pelvic finding. Body wall: No abdominal wall hematoma. Bones: No displaced fractures or aggressive osseous lesions. LOWER EXTREMITIES Right Lower Extremity: No acute vascular injury or occlusion of the right common iliac through the popliteal artery. Patent anterior tibial, posterior tibial, and peroneal arteries. Left Lower Extremity: No acute vascular injury or occlusion of the left common iliac through the popliteal artery. Patent anterior tibial, posterior tibial, and peroneal arteries. Displaced fracture of the mid to distal femoral diaphysis with posterior displacement of the distal fracture fragments. Apparent left bipartite patella versus sequela of old patellar fracture.. CERVICAL SPINE: Vertebra: Limited evaluation of the vertebral bodies especially C6-T1 secondary to photon starvation. No acute fracture. Discs: Intervertebral disc space heights are preserved. Alignment: Normal spinal alignment. Degenerative Changes: None. Soft tissues:No significant soft tissue swelling. THORACIC SPINE: Vertebra: No acute fracture. Discs: Intervertebral disc space heights are preserved. Alignment: Normal spinal alignment. Degenerative Changes: None. Soft tissues:No significant soft tissue swelling. LUMBAR SPINE: Vertebra: There are 6 lumbar type vertebral bodies. No acute fracture. Bilateral L5 pars defects. Discs: Intervertebral disc space heights are preserved. Alignment: Normal spinal alignment. Degenerative Changes: None. Soft tissues:No significant soft tissue swelling. BONY PELVIS: No acute fracture or dislocation. SI joints are patent. No pubic symphysis diastasis. Procedure Note True, Nakia Barros MD - 05/05/2025 CLINICAL INDICATION: Poly trauma TECHNIQUE: Spiral axial CT images of the chest, abdomen, and pelvis were obtainedfrom the thoracic inlet through the bilateral lower extremities followingthe administration of IV contrast per the CTA chest and abdomen protocol.Multiplanar reformatted images in the coronal and sagittal planes, as wellas multiplanar MIP images, were generated from the axial data set tofacilitate diagnostic accuracy and/or surgical planning. Spiral axial CT images of the cervical spine (to include thecervicothoracic junction) were obtained without the administration ofcontrast. Multiplanar reformatted images in the coronal and sagittalplanes were generated from the axial data set to facilitate diagnosticaccuracy and/or surgical planning. Contiguous axial CT images of the entire thoracic spine were reformattedfrom a CT of the chest/aorta. Multiplanar reformatted images in thecoronal and sagittal planes were generated from the axial data set tofacilitate diagnostic accuracy and/or surgical planning. Contiguous axial CT images of the entire lumbar spine were reformattedfrom a CT of the abdomen and pelvis. Multiplanar reformatted images in thecoronal and sagittal planes were generated from the axial data set tofacilitate diagnostic accuracy and/or surgical planning. Contiguous axial CT images of the entire cole pelvis were reformattedfrom a CT of the abdomen and pelvis. Multiplanar reformatted images in thecoronal and sagittal planes were generated from the axial data set tofacilitate diagnostic accuracy and/or surgical planning. 200 mL of Omnipaque 350 was administered intravenously. Total DLP (Dose-Length Product): 8059.25 mGy.cm. Please note: The reportedvalue represents the total of one or more individual components during theCT acquisition on this date and at this time, and as such, the same valuemay appear in more than one CT report depending on theinterpreting/reporting physicians. COMPARISON: None. FINDINGS: CHEST Vessels/Cardiovascular: No vascular injury of the thoracic aorta or greatvessels. No periaortic or mediastinal hematoma. No filling defect withinthe pulmonary artery. Mediastinum: No pericardial effusion. No pneumomediastinum. Lymph nodes: No enlarged mediastinal or hilar lymph nodes. No axillarylymphadenopathy. Lungs and pleura: Minimal dependent atelectasis without focalconsolidation or suspicious pulmonary nodule. No pleural effusion orpneumothorax. Chest Wall: No chest wall hematoma or soft tissue swelling. Bones: No displaced fractures or aggressive osseous lesions. ABDOMEN and PELVIS Liver/Gallbladder/Biliary: Homogenous without focal lesion. Normalgallbladder without inflammatory changes. No intra- or extrahepaticbiliary ductal dilatation. Spleen: Homogenous enhancement without focal lesion. Pancreas: Homogenous enhancement without focal lesion. No pancreaticductal dilatation. Adrenal Glands: Morphologically normal. Kidneys: Symmetric nephrogram and excretion. No suspicious mass or cyst.No renal or uretal calculus. No hydronephrosis. Vasculature: Patent aortoiliac vasculature. Patent splenoportal veins. Lymph Nodes: No enlarged mesenteric or retroperitoneal lymph nodes. Fluid survey: No free intraperitoneal abdominal or pelvic fluid. GI tract: Normal appearing distal esophagus, and stomach. Nondilated smallbowel, and colon. Normal appendix without inflammatory changes. Urinary bladder and pelvic viscera: No bladder wall thickening. Nosuspicious pelvic finding. Body wall: No abdominal wall hematoma. Bones: No displaced fractures or aggressive osseous lesions. LOWER EXTREMITIES Right Lower Extremity: No acute vascular injury or occlusion of the rightcommon iliac through the popliteal artery. Patent anterior tibial,posterior tibial, and peroneal arteries. Left Lower Extremity: No acute vascular injury or occlusion of the leftcommon iliac through the popliteal artery. Patent anterior tibial,posterior tibial, and peroneal arteries. Displaced fracture of the mid to distal femoral diaphysis with posteriordisplacement of the distal fracture fragments. Apparent left bipartitepatella versus sequela of old patellar fracture.. CERVICAL SPINE: Vertebra: Limited evaluation of the vertebral bodies especially C6-B0yrureuvkd to photon starvation. No acute fracture. Discs: Intervertebral disc space heights are preserved. Alignment: Normal spinal alignment. Degenerative Changes: None. Soft tissues:No significant soft tissue swelling. THORACIC SPINE: Vertebra: No acute fracture. Discs: Intervertebral disc space heights are preserved. Alignment: Normal spinal alignment. Degenerative Changes: None. Soft tissues:No significant soft tissue swelling. LUMBAR SPINE: Vertebra: There are 6 lumbar type vertebral bodies. No acute fracture.Bilateral L5 pars defects. Discs: Intervertebral disc space heights are preserved. Alignment: Normal spinal alignment. Degenerative Changes: None. Soft tissues:No significant soft tissue swelling. BONY PELVIS: No acute fracture or dislocation. SI joints are patent. No pubic symphysisdiastasis. IMPRESSION: 1.No acute finding in the chest, abdomen, or pelvis. 2.Displaced fracture of the mid to distal left femoral diaphysis. 3.No acute vascular injury of the lower extremities. 4.No acute fracture of the spine. 5.No acute finding of the bony pelvis. ATTENDING COMMENT: There is diffuse fat stranding adjacent to the root of mesentery whichextends adjacent to the uncinate process and head of pancreas andcorrelation with serum lipase levels is recommended. Stranding alsoextends adjacent to the inferior second and third portions of theduodenum. There is limited evaluation of the SMA secondary to motionartifacts through this artery. The celiac artery and its branches as wellas the renal arteries and JAMES appear to be patent. The SMA is patent;however, limited evaluation for subtle injury. Fat stranding surrounds theSMV which appears to remain patent. There is a moderate retroperitoneal hematoma with diffuse adjacentmesenteric fat stranding within the posterior left lower quadrantextending adjacent to the psoas muscle and overlying the anterior aortaand IVC. No definite active contrast extravasation into this hematoma isidentified. There is noted to be a slightly wedge-shaped low-attenuation region withinthe posterior midportion of the left kidney which in the setting of traumawould be concerning for traumatic renal injury and/or infarction whichappears to be a grade 3 injury without definite extension into thecollecting system. Questionable soft tissue deformity of the volar left knee. The bilateral anterior tibial arteries appear to terminate at the level ofthe distal ankle/proximal foot. Given the symmetry of these findings, thisis unlikely to represent acute traumatic injury and may represent sequelaof contrast timing bolus and/or congenital findings. Correlation withDoppler would be recommended. CRITICAL RESULT: No. COMMUNICATION: Changes to this report were discussed with Joan Kellogg of the emergencyroom service by Dr. Monroe via telephone at [phone] on 05/05/2025. Preliminary report signed by Rad Monroe MD on 05/04/2025 11:25 PM By electronically signing this report, I, the attending physician, attestthat I have personally reviewed the images/data for the aboveexamination(s) and agree with the final edited report. Drafted by Rad Monroe MD on 05/04/2025 10:06 PM Final report signed by Nakia Jimenez MD on 05/05/2025 12:16 AM us Gauri Hall MD IMG CT PROCEDURES Final Result * CT Thoracic Spine wo IV Contrast (05/04/2025 8:29 PM EDT) Anatomical Region Laterality Modality Spine, T-spine Computed Tomogra phy Impressions 05/05/2025 12:16 AM EDT 1. No acute finding in the chest, abdomen, or pelvis. 2. Displaced fracture of the mid to distal left femoral diaphysis. 3. No acute vascular injury of the lower extremities. 4. No acute fracture of the spine. 5. No acute finding of the bony pelvis. ATTENDING COMMENT: There is diffuse fat stranding adjacent to the root of mesentery which extends adjacent to the uncinate process and head of pancreas and correlation with serum lipase levels is recommended. Stranding also extends adjacent to the inferior second and third portions of the duodenum. There is limited evaluation of the SMA secondary to motion artifacts through this artery. The celiac artery and its branches as well as the renal arteries and JAMES appear to be patent. The SMA is patent; however, limited evaluation for subtle injury. Fat stranding surrounds the SMV which appears to remain patent. There is a moderate retroperitoneal hematoma with diffuse adjacent mesenteric fat stranding within the posterior left lower quadrant extending adjacent to the psoas muscle and overlying the anterior aorta and IVC. No definite active contrast extravasation into this hematoma is identified. There is noted to be a slightly wedge-shaped low-attenuation region within the posterior midportion of the left kidney which in the setting of trauma would be concerning for traumatic renal injury and/or infarction which appears to be a grade 3 injury without definite extension into the collecting system. Questionable soft tissue deformity of the volar left knee. The bilateral anterior tibial arteries appear to terminate at the level of the distal ankle/proximal foot. Given the symmetry of these findings, this is unlikely to represent acute traumatic injury and may represent sequela of contrast timing bolus and/or congenital findings. Correlation with Doppler would be recommended. CRITICAL RESULT: No. COMMUNICATION: Changes to this report were discussed with Joan Kellogg of the emergency room service by Dr. Monroe via telephone at [phone] on 05/05/2025. Preliminary report signed by Rad Monroe MD on 05/04/2025 11:25 PM By electronically signing this report, I, the attending physician, attest that I have personally reviewed the images/data for the above examination(s) and agree with the final edited report. Drafted by Rad Monroe MD on 05/04/2025 10:06 PM Final report signed by Nakia Jimenez MD on 05/05/2025 12:16 AM Narrative 05/05/2025 12:16 AM EDT CLINICAL INDICATION: Poly trauma TECHNIQUE: Spiral axial CT images of the chest, abdomen, and pelvis were obtained from the thoracic inlet through the bilateral lower extremities following the administration of IV contrast per the CTA chest and abdomen protocol. Multiplanar reformatted images in the coronal and sagittal planes, as well as multiplanar MIP images, were generated from the axial data set to facilitate diagnostic accuracy and/or surgical planning. Spiral axial CT images of the cervical spine (to include the cervicothoracic junction) were obtained without the administration of contrast. Multiplanar reformatted images in the coronal and sagittal planes were generated from the axial data set to facilitate diagnostic accuracy and/or surgical planning. Contiguous axial CT images of the entire thoracic spine were reformatted from a CT of the chest/aorta. Multiplanar reformatted images in the coronal and sagittal planes were generated from the axial data set to facilitate diagnostic accuracy and/or surgical planning. Contiguous axial CT images of the entire lumbar spine were reformatted from a CT of the abdomen and pelvis. Multiplanar reformatted images in the coronal and sagittal planes were generated from the axial data set to facilitate diagnostic accuracy and/or surgical planning. Contiguous axial CT images of the entire cole pelvis were reformatted from a CT of the abdomen and pelvis. Multiplanar reformatted images in the coronal and sagittal planes were generated from the axial data set to facilitate diagnostic accuracy and/or surgical planning. 200 mL of Omnipaque 350 was administered intravenously. Total DLP (Dose-Length Product): 8059.25 mGy.cm. Please note: The reported value represents the total of one or more individual components during the CT acquisition on this date and at this time, and as such, the same value may appear in more than one CT report depending on the interpreting/reporting physicians. COMPARISON: None. FINDINGS: CHEST Vessels/Cardiovascular: No vascular injury of the thoracic aorta or great vessels. No periaortic or mediastinal hematoma. No filling defect within the pulmonary artery. Mediastinum: No pericardial effusion. No pneumomediastinum. Lymph nodes: No enlarged mediastinal or hilar lymph nodes. No axillary lymphadenopathy. Lungs and pleura: Minimal dependent atelectasis without focal consolidation or suspicious pulmonary nodule. No pleural effusion or pneumothorax. Chest Wall: No chest wall hematoma or soft tissue swelling. Bones: No displaced fractures or aggressive osseous lesions. ABDOMEN and PELVIS Liver/Gallbladder/Biliary: Homogenous without focal lesion. Normal gallbladder without inflammatory changes. No intra- or extrahepatic biliary ductal dilatation. Spleen: Homogenous enhancement without focal lesion. Pancreas: Homogenous enhancement without focal lesion. No pancreatic ductal dilatation. Adrenal Glands: Morphologically normal. Kidneys: Symmetric nephrogram and excretion. No suspicious mass or cyst. No renal or uretal calculus. No hydronephrosis. Vasculature: Patent aortoiliac vasculature. Patent splenoportal veins. Lymph Nodes: No enlarged mesenteric or retroperitoneal lymph nodes. Fluid survey: No free intraperitoneal abdominal or pelvic fluid. GI tract: Normal appearing distal esophagus, and stomach. Nondilated small bowel, and colon. Normal appendix without inflammatory changes. Urinary bladder and pelvic viscera: No bladder wall thickening. No suspicious pelvic finding. Body wall: No abdominal wall hematoma. Bones: No displaced fractures or aggressive osseous lesions. LOWER EXTREMITIES Right Lower Extremity: No acute vascular injury or occlusion of the right common iliac through the popliteal artery. Patent anterior tibial, posterior tibial, and peroneal arteries. Left Lower Extremity: No acute vascular injury or occlusion of the left common iliac through the popliteal artery. Patent anterior tibial, posterior tibial, and peroneal arteries. Displaced fracture of the mid to distal femoral diaphysis with posterior displacement of the distal fracture fragments. Apparent left bipartite patella versus sequela of old patellar fracture.. CERVICAL SPINE: Vertebra: Limited evaluation of the vertebral bodies especially C6-T1 secondary to photon starvation. No acute fracture. Discs: Intervertebral disc space heights are preserved. Alignment: Normal spinal alignment. Degenerative Changes: None. Soft tissues:No significant soft tissue swelling. THORACIC SPINE: Vertebra: No acute fracture. Discs: Intervertebral disc space heights are preserved. Alignment: Normal spinal alignment. Degenerative Changes: None. Soft tissues:No significant soft tissue swelling. LUMBAR SPINE: Vertebra: There are 6 lumbar type vertebral bodies. No acute fracture. Bilateral L5 pars defects. Discs: Intervertebral disc space heights are preserved. Alignment: Normal spinal alignment. Degenerative Changes: None. Soft tissues:No significant soft tissue swelling. BONY PELVIS: No acute fracture or dislocation. SI joints are patent. No pubic symphysis diastasis. Procedure Note True, Nakia Barros MD - 05/05/2025 CLINICAL INDICATION: Poly trauma TECHNIQUE: Spiral axial CT images of the chest, abdomen, and pelvis were obtainedfrom the thoracic inlet through the bilateral lower extremities followingthe administration of IV contrast per the CTA chest and abdomen protocol.Multiplanar reformatted images in the coronal and sagittal planes, as wellas multiplanar MIP images, were generated from the axial data set tofacilitate diagnostic accuracy and/or surgical planning. Spiral axial CT images of the cervical spine (to include thecervicothoracic junction) were obtained without the administration ofcontrast. Multiplanar reformatted images in the coronal and sagittalplanes were generated from the axial data set to facilitate diagnosticaccuracy and/or surgical planning. Contiguous axial CT images of the entire thoracic spine were reformattedfrom a CT of the chest/aorta. Multiplanar reformatted images in thecoronal and sagittal planes were generated from the axial data set tofacilitate diagnostic accuracy and/or surgical planning. Contiguous axial CT images of the entire lumbar spine were reformattedfrom a CT of the abdomen and pelvis. Multiplanar reformatted images in thecoronal and sagittal planes were generated from the axial data set tofacilitate diagnostic accuracy and/or surgical planning. Contiguous axial CT images of the entire cole pelvis were reformattedfrom a CT of the abdomen and pelvis. Multiplanar reformatted images in thecoronal and sagittal planes were generated from the axial data set tofacilitate diagnostic accuracy and/or surgical planning. 200 mL of Omnipaque 350 was administered intravenously. Total DLP (Dose-Length Product): 8059.25 mGy.cm. Please note: The reportedvalue represents the total of one or more individual components during theCT acquisition on this date and at this time, and as such, the same valuemay appear in more than one CT report depending on theinterpreting/reporting physicians. COMPARISON: None. FINDINGS: CHEST Vessels/Cardiovascular: No vascular injury of the thoracic aorta or greatvessels. No periaortic or mediastinal hematoma. No filling defect withinthe pulmonary artery. Mediastinum: No pericardial effusion. No pneumomediastinum. Lymph nodes: No enlarged mediastinal or hilar lymph nodes. No axillarylymphadenopathy. Lungs and pleura: Minimal dependent atelectasis without focalconsolidation or suspicious pulmonary nodule. No pleural effusion orpneumothorax. Chest Wall: No chest wall hematoma or soft tissue swelling. Bones: No displaced fractures or aggressive osseous lesions. ABDOMEN and PELVIS Liver/Gallbladder/Biliary: Homogenous without focal lesion. Normalgallbladder without inflammatory changes. No intra- or extrahepaticbiliary ductal dilatation. Spleen: Homogenous enhancement without focal lesion. Pancreas: Homogenous enhancement without focal lesion. No pancreaticductal dilatation. Adrenal Glands: Morphologically normal. Kidneys: Symmetric nephrogram and excretion. No suspicious mass or cyst.No renal or uretal calculus. No hydronephrosis. Vasculature: Patent aortoiliac vasculature. Patent splenoportal veins. Lymph Nodes: No enlarged mesenteric or retroperitoneal lymph nodes. Fluid survey: No free intraperitoneal abdominal or pelvic fluid. GI tract: Normal appearing distal esophagus, and stomach. Nondilated smallbowel, and colon. Normal appendix without inflammatory changes. Urinary bladder and pelvic viscera: No bladder wall thickening. Nosuspicious pelvic finding. Body wall: No abdominal wall hematoma. Bones: No displaced fractures or aggressive osseous lesions. LOWER EXTREMITIES Right Lower Extremity: No acute vascular injury or occlusion of the rightcommon iliac through the popliteal artery. Patent anterior tibial,posterior tibial, and peroneal arteries. Left Lower Extremity: No acute vascular injury or occlusion of the leftcommon iliac through the popliteal artery. Patent anterior tibial,posterior tibial, and peroneal arteries. Displaced fracture of the mid to distal femoral diaphysis with posteriordisplacement of the distal fracture fragments. Apparent left bipartitepatella versus sequela of old patellar fracture.. CERVICAL SPINE: Vertebra: Limited evaluation of the vertebral bodies especially C6-[id number] to photon starvation. No acute fracture. Discs: Intervertebral disc space heights are preserved. Alignment: Normal spinal alignment. Degenerative Changes: None. Soft tissues:No significant soft tissue swelling. THORACIC SPINE: Vertebra: No acute fracture. Discs: Intervertebral disc space heights are preserved. Alignment: Normal spinal alignment. Degenerative Changes: None. Soft tissues:No significant soft tissue swelling. LUMBAR SPINE: Vertebra: There are 6 lumbar type vertebral bodies. No acute fracture.Bilateral L5 pars defects. Discs: Intervertebral disc space heights are preserved. Alignment: Normal spinal alignment. Degenerative Changes: None. Soft tissues:No significant soft tissue swelling. BONY PELVIS: No acute fracture or dislocation. SI joints are patent. No pubic symphysisdiastasis. IMPRESSION: 1.No acute finding in the chest, abdomen, or pelvis. 2.Displaced fracture of the mid to distal left femoral diaphysis. 3.No acute vascular injury of the lower extremities. 4.No acute fracture of the spine. 5.No acute finding of the bony pelvis. ATTENDING COMMENT: There is diffuse fat stranding adjacent to the root of mesentery whichextends adjacent to the uncinate process and head of pancreas andcorrelation with serum lipase levels is recommended. Stranding alsoextends adjacent to the inferior second and third portions of theduodenum. There is limited evaluation of the SMA secondary to motionartifacts through this artery. The celiac artery and its branches as wellas the renal arteries and JAMES appear to be patent. The SMA is patent;however, limited evaluation for subtle injury. Fat stranding surrounds theSMV which appears to remain patent. There is a moderate retroperitoneal hematoma with diffuse adjacentmesenteric fat stranding within the posterior left lower quadrantextending adjacent to the psoas muscle and overlying the anterior aortaand IVC. No definite active contrast extravasation into this hematoma isidentified. There is noted to be a slightly wedge-shaped low-attenuation region withinthe posterior midportion of the left kidney which in the setting of traumawould be concerning for traumatic renal injury and/or infarction whichappears to be a grade 3 injury without definite extension into thecollecting system. Questionable soft tissue deformity of the volar left knee. The bilateral anterior tibial arteries appear to terminate at the level ofthe distal ankle/proximal foot. Given the symmetry of these findings, thisis unlikely to represent acute traumatic injury and may represent sequelaof contrast timing bolus and/or congenital findings. Correlation withDoppler would be recommended. CRITICAL RESULT: No. COMMUNICATION: Changes to this report were discussed with Joan Kellogg of the emergencyroom service by Dr. Monroe via telephone at [phone] on 05/05/2025. Preliminary report signed by Rad Monroe MD on 05/04/2025 11:25 PM By electronically signing this report, I, the attending physician, attestthat I have personally reviewed the images/data for the aboveexamination(s) and agree with the final edited report. Drafted by Rad Monroe MD on 05/04/2025 10:06 PM Final report signed by Nakia Jimenez MD on 05/05/2025 12:16 AM us Gauri Hall MD IMG CT PROCEDURES Final Result * CT Cervical Spine wo IV Contrast (05/04/2025 8:29 PM EDT) Anatomical Region Laterality Modality Spine, C-spine Computed Tomogra phy Impressions 05/05/2025 12:16 AM EDT 1. No acute finding in the chest, abdomen, or pelvis. 2. Displaced fracture of the mid to distal left femoral diaphysis. 3. No acute vascular injury of the lower extremities. 4. No acute fracture of the spine. 5. No acute finding of the bony pelvis. ATTENDING COMMENT: There is diffuse fat stranding adjacent to the root of mesentery which extends adjacent to the uncinate process and head of pancreas and correlation with serum lipase levels is recommended. Stranding also extends adjacent to the inferior second and third portions of the duodenum. There is limited evaluation of the SMA secondary to motion artifacts through this artery. The celiac artery and its branches as well as the renal arteries and JAMES appear to be patent. The SMA is patent; however, limited evaluation for subtle injury. Fat stranding surrounds the SMV which appears to remain patent. There is a moderate retroperitoneal hematoma with diffuse adjacent mesenteric fat stranding within the posterior left lower quadrant extending adjacent to the psoas muscle and overlying the anterior aorta and IVC. No definite active contrast extravasation into this hematoma is identified. There is noted to be a slightly wedge-shaped low-attenuation region within the posterior midportion of the left kidney which in the setting of trauma would be concerning for traumatic renal injury and/or infarction which appears to be a grade 3 injury without definite extension into the collecting system. Questionable soft tissue deformity of the volar left knee. The bilateral anterior tibial arteries appear to terminate at the level of the distal ankle/proximal foot. Given the symmetry of these findings, this is unlikely to represent acute traumatic injury and may represent sequela of contrast timing bolus and/or congenital findings. Correlation with Doppler would be recommended. CRITICAL RESULT: No. COMMUNICATION: Changes to this report were discussed with Joan Kellogg of the emergency room service by Dr. Monroe via telephone at [phone] on 05/05/2025. Preliminary report signed by Rad Monroe MD on 05/04/2025 11:25 PM By electronically signing this report, I, the attending physician, attest that I have personally reviewed the images/data for the above examination(s) and agree with the final edited report. Drafted by Rad Monroe MD on 05/04/2025 10:06 PM Final report signed by Nakia Jimenez MD on 05/05/2025 12:16 AM Narrative 05/05/2025 12:16 AM EDT CLINICAL INDICATION: Poly trauma TECHNIQUE: Spiral axial CT images of the chest, abdomen, and pelvis were obtained from the thoracic inlet through the bilateral lower extremities following the administration of IV contrast per the CTA chest and abdomen protocol. Multiplanar reformatted images in the coronal and sagittal planes, as well as multiplanar MIP images, were generated from the axial data set to facilitate diagnostic accuracy and/or surgical planning. Spiral axial CT images of the cervical spine (to include the cervicothoracic junction) were obtained without the administration of contrast. Multiplanar reformatted images in the coronal and sagittal planes were generated from the axial data set to facilitate diagnostic accuracy and/or surgical planning. Contiguous axial CT images of the entire thoracic spine were reformatted from a CT of the chest/aorta. Multiplanar reformatted images in the coronal and sagittal planes were generated from the axial data set to facilitate diagnostic accuracy and/or surgical planning. Contiguous axial CT images of the entire lumbar spine were reformatted from a CT of the abdomen and pelvis. Multiplanar reformatted images in the coronal and sagittal planes were generated from the axial data set to facilitate diagnostic accuracy and/or surgical planning. Contiguous axial CT images of the entire cole pelvis were reformatted from a CT of the abdomen and pelvis. Multiplanar reformatted images in the coronal and sagittal planes were generated from the axial data set to facilitate diagnostic accuracy and/or surgical planning. 200 mL of Omnipaque 350 was administered intravenously. Total DLP (Dose-Length Product): 8059.25 mGy.cm. Please note: The reported value represents the total of one or more individual components during the CT acquisition on this date and at this time, and as such, the same value may appear in more than one CT report depending on the interpreting/reporting physicians. COMPARISON: None. FINDINGS: CHEST Vessels/Cardiovascular: No vascular injury of the thoracic aorta or great vessels. No periaortic or mediastinal hematoma. No filling defect within the pulmonary artery. Mediastinum: No pericardial effusion. No pneumomediastinum. Lymph nodes: No enlarged mediastinal or hilar lymph nodes. No axillary lymphadenopathy. Lungs and pleura: Minimal dependent atelectasis without focal consolidation or suspicious pulmonary nodule. No pleural effusion or pneumothorax. Chest Wall: No chest wall hematoma or soft tissue swelling. Bones: No displaced fractures or aggressive osseous lesions. ABDOMEN and PELVIS Liver/Gallbladder/Biliary: Homogenous without focal lesion. Normal gallbladder without inflammatory changes. No intra- or extrahepatic biliary ductal dilatation. Spleen: Homogenous enhancement without focal lesion. Pancreas: Homogenous enhancement without focal lesion. No pancreatic ductal dilatation. Adrenal Glands: Morphologically normal. Kidneys: Symmetric nephrogram and excretion. No suspicious mass or cyst. No renal or uretal calculus. No hydronephrosis. Vasculature: Patent aortoiliac vasculature. Patent splenoportal veins. Lymph Nodes: No enlarged mesenteric or retroperitoneal lymph nodes. Fluid survey: No free intraperitoneal abdominal or pelvic fluid. GI tract: Normal appearing distal esophagus, and stomach. Nondilated small bowel, and colon. Normal appendix without inflammatory changes. Urinary bladder and pelvic viscera: No bladder wall thickening. No suspicious pelvic finding. Body wall: No abdominal wall hematoma. Bones: No displaced fractures or aggressive osseous lesions. LOWER EXTREMITIES Right Lower Extremity: No acute vascular injury or occlusion of the right common iliac through the popliteal artery. Patent anterior tibial, posterior tibial, and peroneal arteries. Left Lower Extremity: No acute vascular injury or occlusion of the left common iliac through the popliteal artery. Patent anterior tibial, posterior tibial, and peroneal arteries. Displaced fracture of the mid to distal femoral diaphysis with posterior displacement of the distal fracture fragments. Apparent left bipartite patella versus sequela of old patellar fracture.. CERVICAL SPINE: Vertebra: Limited evaluation of the vertebral bodies especially C6-T1 secondary to photon starvation. No acute fracture. Discs: Intervertebral disc space heights are preserved. Alignment: Normal spinal alignment. Degenerative Changes: None. Soft tissues:No significant soft tissue swelling. THORACIC SPINE: Vertebra: No acute fracture. Discs: Intervertebral disc space heights are preserved. Alignment: Normal spinal alignment. Degenerative Changes: None. Soft tissues:No significant soft tissue swelling. LUMBAR SPINE: Vertebra: There are 6 lumbar type vertebral bodies. No acute fracture. Bilateral L5 pars defects. Discs: Intervertebral disc space heights are preserved. Alignment: Normal spinal alignment. Degenerative Changes: None. Soft tissues:No significant soft tissue swelling. BONY PELVIS: No acute fracture or dislocation. SI joints are patent. No pubic symphysis diastasis. Procedure Note True, Nakia Barros MD - 05/05/2025 CLINICAL INDICATION: Poly trauma TECHNIQUE: Spiral axial CT images of the chest, abdomen, and pelvis were obtainedfrom the thoracic inlet through the bilateral lower extremities followingthe administration of IV contrast per the CTA chest and abdomen protocol.Multiplanar reformatted images in the coronal and sagittal planes, as wellas multiplanar MIP images, were generated from the axial data set tofacilitate diagnostic accuracy and/or surgical planning. Spiral axial CT images of the cervical spine (to include thecervicothoracic junction) were obtained without the administration ofcontrast. Multiplanar reformatted images in the coronal and sagittalplanes were generated from the axial data set to facilitate diagnosticaccuracy and/or surgical planning. Contiguous axial CT images of the entire thoracic spine were reformattedfrom a CT of the chest/aorta. Multiplanar reformatted images in thecoronal and sagittal planes were generated from the axial data set tofacilitate diagnostic accuracy and/or surgical planning. Contiguous axial CT images of the entire lumbar spine were reformattedfrom a CT of the abdomen and pelvis. Multiplanar reformatted images in thecoronal and sagittal planes were generated from the axial data set tofacilitate diagnostic accuracy and/or surgical planning. Contiguous axial CT images of the entire cole pelvis were reformattedfrom a CT of the abdomen and pelvis. Multiplanar reformatted images in thecoronal and sagittal planes were generated from the axial data set tofacilitate diagnostic accuracy and/or surgical planning. 200 mL of Omnipaque 350 was administered intravenously. Total DLP (Dose-Length Product): 8059.25 mGy.cm. Please note: The reportedvalue represents the total of one or more individual components during theCT acquisition on this date and at this time, and as such, the same valuemay appear in more than one CT report depending on theinterpreting/reporting physicians. COMPARISON: None. FINDINGS: CHEST Vessels/Cardiovascular: No vascular injury of the thoracic aorta or greatvessels. No periaortic or mediastinal hematoma. No filling defect withinthe pulmonary artery. Mediastinum: No pericardial effusion. No pneumomediastinum. Lymph nodes: No enlarged mediastinal or hilar lymph nodes. No axillarylymphadenopathy. Lungs and pleura: Minimal dependent atelectasis without focalconsolidation or suspicious pulmonary nodule. No pleural effusion orpneumothorax. Chest Wall: No chest wall hematoma or soft tissue swelling. Bones: No displaced fractures or aggressive osseous lesions. ABDOMEN and PELVIS Liver/Gallbladder/Biliary: Homogenous without focal lesion. Normalgallbladder without inflammatory changes. No intra- or extrahepaticbiliary ductal dilatation. Spleen: Homogenous enhancement without focal lesion. Pancreas: Homogenous enhancement without focal lesion. No pancreaticductal dilatation. Adrenal Glands: Morphologically normal. Kidneys: Symmetric nephrogram and excretion. No suspicious mass or cyst.No renal or uretal calculus. No hydronephrosis. Vasculature: Patent aortoiliac vasculature. Patent splenoportal veins. Lymph Nodes: No enlarged mesenteric or retroperitoneal lymph nodes. Fluid survey: No free intraperitoneal abdominal or pelvic fluid. GI tract: Normal appearing distal esophagus, and stomach. Nondilated smallbowel, and colon. Normal appendix without inflammatory changes. Urinary bladder and pelvic viscera: No bladder wall thickening. Nosuspicious pelvic finding. Body wall: No abdominal wall hematoma. Bones: No displaced fractures or aggressive osseous lesions. LOWER EXTREMITIES Right Lower Extremity: No acute vascular injury or occlusion of the rightcommon iliac through the popliteal artery. Patent anterior tibial,posterior tibial, and peroneal arteries. Left Lower Extremity: No acute vascular injury or occlusion of the leftcommon iliac through the popliteal artery. Patent anterior tibial,posterior tibial, and peroneal arteries. Displaced fracture of the mid to distal femoral diaphysis with posteriordisplacement of the distal fracture fragments. Apparent left bipartitepatella versus sequela of old patellar fracture.. CERVICAL SPINE: Vertebra: Limited evaluation of the vertebral bodies especially C6-N2mjenicoub to photon starvation. No acute fracture. Discs: Intervertebral disc space heights are preserved. Alignment: Normal spinal alignment. Degenerative Changes: None. Soft tissues:No significant soft tissue swelling. THORACIC SPINE: Vertebra: No acute fracture. Discs: Intervertebral disc space heights are preserved. Alignment: Normal spinal alignment. Degenerative Changes: None. Soft tissues:No significant soft tissue swelling. LUMBAR SPINE: Vertebra: There are 6 lumbar type vertebral bodies. No acute fracture.Bilateral L5 pars defects. Discs: Intervertebral disc space heights are preserved. Alignment: Normal spinal alignment. Degenerative Changes: None. Soft tissues:No significant soft tissue swelling. BONY PELVIS: No acute fracture or dislocation. SI joints are patent. No pubic symphysisdiastasis. IMPRESSION: 1.No acute finding in the chest, abdomen, or pelvis. 2.Displaced fracture of the mid to distal left femoral diaphysis. 3.No acute vascular injury of the lower extremities. 4.No acute fracture of the spine. 5.No acute finding of the bony pelvis. ATTENDING COMMENT: There is diffuse fat stranding adjacent to the root of mesentery whichextends adjacent to the uncinate process and head of pancreas andcorrelation with serum lipase levels is recommended. Stranding alsoextends adjacent to the inferior second and third portions of theduodenum. There is limited evaluation of the SMA secondary to motionartifacts through this artery. The celiac artery and its branches as wellas the renal arteries and JAMES appear to be patent. The SMA is patent;however, limited evaluation for subtle injury. Fat stranding surrounds theSMV which appears to remain patent. There is a moderate retroperitoneal hematoma with diffuse adjacentmesenteric fat stranding within the posterior left lower quadrantextending adjacent to the psoas muscle and overlying the anterior aortaand IVC. No definite active contrast extravasation into this hematoma isidentified. There is noted to be a slightly wedge-shaped low-attenuation region withinthe posterior midportion of the left kidney which in the setting of traumawould be concerning for traumatic renal injury and/or infarction whichappears to be a grade 3 injury without definite extension into thecollecting system. Questionable soft tissue deformity of the volar left knee. The bilateral anterior tibial arteries appear to terminate at the level ofthe distal ankle/proximal foot. Given the symmetry of these findings, thisis unlikely to represent acute traumatic injury and may represent sequelaof contrast timing bolus and/or congenital findings. Correlation withDoppler would be recommended. CRITICAL RESULT: No. COMMUNICATION: Changes to this report were discussed with Joan Kellogg of the emergencyroom service by Dr. Monroe via telephone at [phone] on 05/05/2025. Preliminary report signed by Rad Monroe MD on 05/04/2025 11:25 PM By electronically signing this report, I, the attending physician, attestthat I have personally reviewed the images/data for the aboveexamination(s) and agree with the final edited report. Drafted by Rad Monroe MD on 05/04/2025 10:06 PM Final report signed by Nakia Jimenez MD on 05/05/2025 12:16 AM us Gauri Hall MD IMG CT PROCEDURES Final Result * CT Angio Chest (05/04/2025 8:29 PM EDT) Anatomical Region Laterality Modality Chest Computed Tomogra phy Impressions 05/05/2025 12:16 AM EDT 1. No acute finding in the chest, abdomen, or pelvis. 2. Displaced fracture of the mid to distal left femoral diaphysis. 3. No acute vascular injury of the lower extremities. 4. No acute fracture of the spine. 5. No acute finding of the bony pelvis. ATTENDING COMMENT: There is diffuse fat stranding adjacent to the root of mesentery which extends adjacent to the uncinate process and head of pancreas and correlation with serum lipase levels is recommended. Stranding also extends adjacent to the inferior second and third portions of the duodenum. There is limited evaluation of the SMA secondary to motion artifacts through this artery. The celiac artery and its branches as well as the renal arteries and JAMES appear to be patent. The SMA is patent; however, limited evaluation for subtle injury. Fat stranding surrounds the SMV which appears to remain patent. There is a moderate retroperitoneal hematoma with diffuse adjacent mesenteric fat stranding within the posterior left lower quadrant extending adjacent to the psoas muscle and overlying the anterior aorta and IVC. No definite active contrast extravasation into this hematoma is identified. There is noted to be a slightly wedge-shaped low-attenuation region within the posterior midportion of the left kidney which in the setting of trauma would be concerning for traumatic renal injury and/or infarction which appears to be a grade 3 injury without definite extension into the collecting system. Questionable soft tissue deformity of the volar left knee. The bilateral anterior tibial arteries appear to terminate at the level of the distal ankle/proximal foot. Given the symmetry of these findings, this is unlikely to represent acute traumatic injury and may represent sequela of contrast timing bolus and/or congenital findings. Correlation with Doppler would be recommended. CRITICAL RESULT: No. COMMUNICATION: Changes to this report were discussed with Joan Kellogg of the emergency room service by Dr. Monroe via telephone at [phone] on 05/05/2025. Preliminary report signed by Rad Monroe MD on 05/04/2025 11:25 PM By electronically signing this report, I, the attending physician, attest that I have personally reviewed the images/data for the above examination(s) and agree with the final edited report. Drafted by Rad Monroe MD on 05/04/2025 10:06 PM Final report signed by Nakia Jimenez MD on 05/05/2025 12:16 AM Narrative 05/05/2025 12:16 AM EDT CLINICAL INDICATION: Poly trauma TECHNIQUE: Spiral axial CT images of the chest, abdomen, and pelvis were obtained from the thoracic inlet through the bilateral lower extremities following the administration of IV contrast per the CTA chest and abdomen protocol. Multiplanar reformatted images in the coronal and sagittal planes, as well as multiplanar MIP images, were generated from the axial data set to facilitate diagnostic accuracy and/or surgical planning. Spiral axial CT images of the cervical spine (to include the cervicothoracic junction) were obtained without the administration of contrast. Multiplanar reformatted images in the coronal and sagittal planes were generated from the axial data set to facilitate diagnostic accuracy and/or surgical planning. Contiguous axial CT images of the entire thoracic spine were reformatted from a CT of the chest/aorta. Multiplanar reformatted images in the coronal and sagittal planes were generated from the axial data set to facilitate diagnostic accuracy and/or surgical planning. Contiguous axial CT images of the entire lumbar spine were reformatted from a CT of the abdomen and pelvis. Multiplanar reformatted images in the coronal and sagittal planes were generated from the axial data set to facilitate diagnostic accuracy and/or surgical planning. Contiguous axial CT images of the entire cole pelvis were reformatted from a CT of the abdomen and pelvis. Multiplanar reformatted images in the coronal and sagittal planes were generated from the axial data set to facilitate diagnostic accuracy and/or surgical planning. 200 mL of Omnipaque 350 was administered intravenously. Total DLP (Dose-Length Product): 8059.25 mGy.cm. Please note: The reported value represents the total of one or more individual components during the CT acquisition on this date and at this time, and as such, the same value may appear in more than one CT report depending on the interpreting/reporting physicians. COMPARISON: None. FINDINGS: CHEST Vessels/Cardiovascular: No vascular injury of the thoracic aorta or great vessels. No periaortic or mediastinal hematoma. No filling defect within the pulmonary artery. Mediastinum: No pericardial effusion. No pneumomediastinum. Lymph nodes: No enlarged mediastinal or hilar lymph nodes. No axillary lymphadenopathy. Lungs and pleura: Minimal dependent atelectasis without focal consolidation or suspicious pulmonary nodule. No pleural effusion or pneumothorax. Chest Wall: No chest wall hematoma or soft tissue swelling. Bones: No displaced fractures or aggressive osseous lesions. ABDOMEN and PELVIS Liver/Gallbladder/Biliary: Homogenous without focal lesion. Normal gallbladder without inflammatory changes. No intra- or extrahepatic biliary ductal dilatation. Spleen: Homogenous enhancement without focal lesion. Pancreas: Homogenous enhancement without focal lesion. No pancreatic ductal dilatation. Adrenal Glands: Morphologically normal. Kidneys: Symmetric nephrogram and excretion. No suspicious mass or cyst. No renal or uretal calculus. No hydronephrosis. Vasculature: Patent aortoiliac vasculature. Patent splenoportal veins. Lymph Nodes: No enlarged mesenteric or retroperitoneal lymph nodes. Fluid survey: No free intraperitoneal abdominal or pelvic fluid. GI tract: Normal appearing distal esophagus, and stomach. Nondilated small bowel, and colon. Normal appendix without inflammatory changes. Urinary bladder and pelvic viscera: No bladder wall thickening. No suspicious pelvic finding. Body wall: No abdominal wall hematoma. Bones: No displaced fractures or aggressive osseous lesions. LOWER EXTREMITIES Right Lower Extremity: No acute vascular injury or occlusion of the right common iliac through the popliteal artery. Patent anterior tibial, posterior tibial, and peroneal arteries. Left Lower Extremity: No acute vascular injury or occlusion of the left common iliac through the popliteal artery. Patent anterior tibial, posterior tibial, and peroneal arteries. Displaced fracture of the mid to distal femoral diaphysis with posterior displacement of the distal fracture fragments. Apparent left bipartite patella versus sequela of old patellar fracture.. CERVICAL SPINE: Vertebra: Limited evaluation of the vertebral bodies especially C6-T1 secondary to photon starvation. No acute fracture. Discs: Intervertebral disc space heights are preserved. Alignment: Normal spinal alignment. Degenerative Changes: None. Soft tissues:No significant soft tissue swelling. THORACIC SPINE: Vertebra: No acute fracture. Discs: Intervertebral disc space heights are preserved. Alignment: Normal spinal alignment. Degenerative Changes: None. Soft tissues:No significant soft tissue swelling. LUMBAR SPINE: Vertebra: There are 6 lumbar type vertebral bodies. No acute fracture. Bilateral L5 pars defects. Discs: Intervertebral disc space heights are preserved. Alignment: Normal spinal alignment. Degenerative Changes: None. Soft tissues:No significant soft tissue swelling. BONY PELVIS: No acute fracture or dislocation. SI joints are patent. No pubic symphysis diastasis. Procedure Note True, Nakia Barros MD - 05/05/2025 CLINICAL INDICATION: Poly trauma TECHNIQUE: Spiral axial CT images of the chest, abdomen, and pelvis were obtainedfrom the thoracic inlet through the bilateral lower extremities followingthe administration of IV contrast per the CTA chest and abdomen protocol.Multiplanar reformatted images in the coronal and sagittal planes, as wellas multiplanar MIP images, were generated from the axial data set tofacilitate diagnostic accuracy and/or surgical planning. Spiral axial CT images of the cervical spine (to include thecervicothoracic junction) were obtained without the administration ofcontrast. Multiplanar reformatted images in the coronal and sagittalplanes were generated from the axial data set to facilitate diagnosticaccuracy and/or surgical planning. Contiguous axial CT images of the entire thoracic spine were reformattedfrom a CT of the chest/aorta. Multiplanar reformatted images in thecoronal and sagittal planes were generated from the axial data set tofacilitate diagnostic accuracy and/or surgical planning. Contiguous axial CT images of the entire lumbar spine were reformattedfrom a CT of the abdomen and pelvis. Multiplanar reformatted images in thecoronal and sagittal planes were generated from the axial data set tofacilitate diagnostic accuracy and/or surgical planning. Contiguous axial CT images of the entire cole pelvis were reformattedfrom a CT of the abdomen and pelvis. Multiplanar reformatted images in thecoronal and sagittal planes were generated from the axial data set tofacilitate diagnostic accuracy and/or surgical planning. 200 mL of Omnipaque 350 was administered intravenously. Total DLP (Dose-Length Product): 8059.25 mGy.cm. Please note: The reportedvalue represents the total of one or more individual components during theCT acquisition on this date and at this time, and as such, the same valuemay appear in more than one CT report depending on theinterpreting/reporting physicians. COMPARISON: None. FINDINGS: CHEST Vessels/Cardiovascular: No vascular injury of the thoracic aorta or greatvessels. No periaortic or mediastinal hematoma. No filling defect withinthe pulmonary artery. Mediastinum: No pericardial effusion. No pneumomediastinum. Lymph nodes: No enlarged mediastinal or hilar lymph nodes. No axillarylymphadenopathy. Lungs and pleura: Minimal dependent atelectasis without focalconsolidation or suspicious pulmonary nodule. No pleural effusion orpneumothorax. Chest Wall: No chest wall hematoma or soft tissue swelling. Bones: No displaced fractures or aggressive osseous lesions. ABDOMEN and PELVIS Liver/Gallbladder/Biliary: Homogenous without focal lesion. Normalgallbladder without inflammatory changes. No intra- or extrahepaticbiliary ductal dilatation. Spleen: Homogenous enhancement without focal lesion. Pancreas: Homogenous enhancement without focal lesion. No pancreaticductal dilatation. Adrenal Glands: Morphologically normal. Kidneys: Symmetric nephrogram and excretion. No suspicious mass or cyst.No renal or uretal calculus. No hydronephrosis. Vasculature: Patent aortoiliac vasculature. Patent splenoportal veins. Lymph Nodes: No enlarged mesenteric or retroperitoneal lymph nodes. Fluid survey: No free intraperitoneal abdominal or pelvic fluid. GI tract: Normal appearing distal esophagus, and stomach. Nondilated smallbowel, and colon. Normal appendix without inflammatory changes. Urinary bladder and pelvic viscera: No bladder wall thickening. Nosuspicious pelvic finding. Body wall: No abdominal wall hematoma. Bones: No displaced fractures or aggressive osseous lesions. LOWER EXTREMITIES Right Lower Extremity: No acute vascular injury or occlusion of the rightcommon iliac through the popliteal artery. Patent anterior tibial,posterior tibial, and peroneal arteries. Left Lower Extremity: No acute vascular injury or occlusion of the leftcommon iliac through the popliteal artery. Patent anterior tibial,posterior tibial, and peroneal arteries. Displaced fracture of the mid to distal femoral diaphysis with posteriordisplacement of the distal fracture fragments. Apparent left bipartitepatella versus sequela of old patellar fracture.. CERVICAL SPINE: Vertebra: Limited evaluation of the vertebral bodies especially [id number] to photon starvation. No acute fracture. Discs: Intervertebral disc space heights are preserved. Alignment: Normal spinal alignment. Degenerative Changes: None. Soft tissues:No significant soft tissue swelling. THORACIC SPINE: Vertebra: No acute fracture. Discs: Intervertebral disc space heights are preserved. Alignment: Normal spinal alignment. Degenerative Changes: None. Soft tissues:No significant soft tissue swelling. LUMBAR SPINE: Vertebra: There are 6 lumbar type vertebral bodies. No acute fracture.Bilateral L5 pars defects. Discs: Intervertebral disc space heights are preserved. Alignment: Normal spinal alignment. Degenerative Changes: None. Soft tissues:No significant soft tissue swelling. BONY PELVIS: No acute fracture or dislocation. SI joints are patent. No pubic symphysisdiastasis. IMPRESSION: 1.No acute finding in the chest, abdomen, or pelvis. 2.Displaced fracture of the mid to distal left femoral diaphysis. 3.No acute vascular injury of the lower extremities. 4.No acute fracture of the spine. 5.No acute finding of the bony pelvis. ATTENDING COMMENT: There is diffuse fat stranding adjacent to the root of mesentery whichextends adjacent to the uncinate process and head of pancreas andcorrelation with serum lipase levels is recommended. Stranding alsoextends adjacent to the inferior second and third portions of theduodenum. There is limited evaluation of the SMA secondary to motionartifacts through this artery. The celiac artery and its branches as wellas the renal arteries and JAMES appear to be patent. The SMA is patent;however, limited evaluation for subtle injury. Fat stranding surrounds theSMV which appears to remain patent. There is a moderate retroperitoneal hematoma with diffuse adjacentmesenteric fat stranding within the posterior left lower quadrantextending adjacent to the psoas muscle and overlying the anterior aortaand IVC. No definite active contrast extravasation into this hematoma isidentified. There is noted to be a slightly wedge-shaped low-attenuation region withinthe posterior midportion of the left kidney which in the setting of traumawould be concerning for traumatic renal injury and/or infarction whichappears to be a grade 3 injury without definite extension into thecollecting system. Questionable soft tissue deformity of the volar left knee. The bilateral anterior tibial arteries appear to terminate at the level ofthe distal ankle/proximal foot. Given the symmetry of these findings, thisis unlikely to represent acute traumatic injury and may represent sequelaof contrast timing bolus and/or congenital findings. Correlation withDoppler would be recommended. CRITICAL RESULT: No. COMMUNICATION: Changes to this report were discussed with Joan Kellogg of the emergencyroom service by Dr. Monroe via telephone at 0181 on 05/05/2025. Preliminary report signed by Rad Monroe MD on 05/04/2025 11:25 PM By electronically signing this report, I, the attending physician, attestthat I have personally reviewed the images/data for the aboveexamination(s) and agree with the final edited report. Drafted by Rad Monroe MD on 05/04/2025 10:06 PM Final report signed by Nakia Jimenez MD on 05/05/2025 12:16 AM us Gauri Hall MD IMG CT PROCEDURES Final Result * CT Face wo IV Contrast (05/04/2025 8:29 PM EDT) Anatomical Region Laterality Modality Facial bones Computed Tomogra phy Impressions 05/04/2025 9:24 PM EDT No acute intracranial hemorrhage or acute large territorial infarction. Age-indeterminate minimally displaced nasal fractures. Otherwise no acute facial fracture. No acute traumatic injury, significant stenosis, or occlusion major intracranial arteries or cervical carotid/vertebral arteries. Suggestion of subtle stranding right supraclavicular region, recommend correlation for contusion. CRITICAL RESULT: No. COMMUNICATION: Per this written report. Drafted by Alec Augustin MD on 05/04/2025 9:12 PM Final report signed by Alec Augustin MD on 05/04/2025 9:24 PM Narrative 05/04/2025 9:24 PM EDT CLINICAL INDICATION: poly trauma TECHNIQUE: Routine contiguous axial CT images of the head and face were obtained without contrast administration. The axial dataset through the face was used to reconstruct images in the sagittal and coronal planes. Contrast-enhanced CT angiogram of the head and neck was obtained after administration of intravenous iodinated contrast using 0.6 mm axial slice thickness with multiplanar reformations and maximum intensity projections. In addition, 3D images were created and reviewed. AI Utilization: None Total DLP (Dose-Length Product): 8059.25 mGy.cm (accession [id number]), 8059.25 mGy.cm (accession [id number]), 8059.25 mGy.cm (accession [id number]), 8059.25 mGy.cm (accession [id number]). Please note: The reported value represents the total of one or more individual components during the CT acquisition on this date and at this time, and as such, the same value may appear in more than one CT report depending on the interpreting/reporting physicians. COMPARISON: None. FINDINGS: CT Head without: No acute intracranial hemorrhage or acute large territorial infarction. No focal mass, mass effect, midline shift. Ventricles and cisternal spaces grossly within normal limits for patient age. No displaced or depressed calvarial fractures. The mastoid air cells are clear. CT Face: Facial bones: Age-indeterminate minimally displaced nasal fractures. Otherwise no acute facial fracture. Paranasal sinuses: Minimal paranasal sinus mucosal thickening. Globes: Bilateral globes appear intact. Soft tissues: No soft tissue swelling or hematoma. CTA Head: Slight fenestration basilar artery. There is no evidence of vascular injury, specifically no arterial stenosis, occlusion, dissection, or pseudoaneurysm. CTA Neck: Evaluation mildly limited secondary to artifact. There is no evidence of vascular injury, specifically no arterial stenosis, occlusion, dissection, or pseudoaneurysm. No hemodynamically significant stenosis bilateral internal carotid arteries as determined by NASCET criteria. Left vertebral artery arises directly from the aortic arch, normal variant. Few subcentimeter right cervical lymph nodes, not significantly enlarged and the CT criteria. Suggestion of subtle stranding right supraclavicular region, recommend correlation for contusion. Procedure Note Alec Augustin MD - 05/04/2025 CLINICAL INDICATION: poly trauma TECHNIQUE: Routine contiguous axial CT images of the head and face were obtainedwithout contrast administration. The axial dataset through the face wasused to reconstruct images in the sagittal and coronal planes. Contrast-enhanced CT angiogram of the head and neck was obtained afteradministration of intravenous iodinated contrast using 0.6 mm axial slicethickness with multiplanar reformations and maximum intensity projections.In addition, 3D images were created and reviewed. AI Utilization: None Total DLP (Dose-Length Product): 8059.25 mGy.cm (accession [id number]),8059.25 mGy.cm (accession [id number]), 8059.25 mGy.cm (accession [id number]),8059.25 mGy.cm (accession [id number]). Please note: The reported valuerepresents the total of one or more individual components during the CTacquisition on this date and at this time, and as such, the same value mayappear in more than one CT report depending on the interpreting/reportingphysicians. COMPARISON: None. FINDINGS: CT Head without: No acute intracranial hemorrhage or acute large territorial infarction. Nofocal mass, mass effect, midline shift. Ventricles and cisternal spacesgrossly within normal limits for patient age. No displaced or depressed calvarial fractures. The mastoid air cells areclear. CT Face: Facial bones: Age-indeterminate minimally displaced nasal fractures.Otherwise no acute facial fracture. Paranasal sinuses: Minimal paranasal sinus mucosal thickening. Globes: Bilateral globes appear intact. Soft tissues: No soft tissue swelling or hematoma. CTA Head: Slight fenestration basilar artery. There is no evidence of vascularinjury, specifically no arterial stenosis, occlusion, dissection, orpseudoaneurysm. CTA Neck: Evaluation mildly limited secondary to artifact. There is no evidence ofvascular injury, specifically no arterial stenosis, occlusion, dissection,or pseudoaneurysm. No hemodynamically significant stenosis bilateralinternal carotid arteries as determined by NASCET criteria. Left vertebralartery arises directly from the aortic arch, normal variant. Few subcentimeter right cervical lymph nodes, not significantly enlargedand the CT criteria. Suggestion of subtle stranding right supraclavicular region, recommendcorrelation for contusion. IMPRESSION: No acute intracranial hemorrhage or acute large territorial infarction. Age-indeterminate minimally displaced nasal fractures. Otherwise no acutefacial fracture. No acute traumatic injury, significant stenosis, or occlusion majorintracranial arteries or cervical carotid/vertebral arteries. Suggestion of subtle stranding right supraclavicular region, recommendcorrelation for contusion. CRITICAL RESULT: No. COMMUNICATION: Per this written report. Drafted by Alec Augustin MD on 05/04/2025 9:12 PM Final report signed by Alec Augustin MD on 05/04/2025 9:24 PM Gauri Hall MD IMG CT PROCEDURES Final Result * CT Angio Neck (05/04/2025 8:29 PM EDT) Anatomical Region Laterality Modality Carotid Artery Computed Tomogra phy Impressions 05/04/2025 9:24 PM EDT No acute intracranial hemorrhage or acute large territorial infarction. Age-indeterminate minimally displaced nasal fractures. Otherwise no acute facial fracture. No acute traumatic injury, significant stenosis, or occlusion major intracranial arteries or cervical carotid/vertebral arteries. Suggestion of subtle stranding right supraclavicular region, recommend correlation for contusion. CRITICAL RESULT: No. COMMUNICATION: Per this written report. Drafted by Alec Augustin MD on 05/04/2025 9:12 PM Final report signed by Alec Augustin MD on 05/04/2025 9:24 PM Narrative 05/04/2025 9:24 PM EDT CLINICAL INDICATION: poly trauma TECHNIQUE: Routine contiguous axial CT images of the head and face were obtained without contrast administration. The axial dataset through the face was used to reconstruct images in the sagittal and coronal planes. Contrast-enhanced CT angiogram of the head and neck was obtained after administration of intravenous iodinated contrast using 0.6 mm axial slice thickness with multiplanar reformations and maximum intensity projections. In addition, 3D images were created and reviewed. AI Utilization: None Total DLP (Dose-Length Product): 8059.25 mGy.cm (accession [id number]), 8059.25 mGy.cm (accession [id number]), 8059.25 mGy.cm (accession [id number]), 8059.25 mGy.cm (accession [id number]). Please note: The reported value represents the total of one or more individual components during the CT acquisition on this date and at this time, and as such, the same value may appear in more than one CT report depending on the interpreting/reporting physicians. COMPARISON: None. FINDINGS: CT Head without: No acute intracranial hemorrhage or acute large territorial infarction. No focal mass, mass effect, midline shift. Ventricles and cisternal spaces grossly within normal limits for patient age. No displaced or depressed calvarial fractures. The mastoid air cells are clear. CT Face: Facial bones: Age-indeterminate minimally displaced nasal fractures. Otherwise no acute facial fracture. Paranasal sinuses: Minimal paranasal sinus mucosal thickening. Globes: Bilateral globes appear intact. Soft tissues: No soft tissue swelling or hematoma. CTA Head: Slight fenestration basilar artery. There is no evidence of vascular injury, specifically no arterial stenosis, occlusion, dissection, or pseudoaneurysm. CTA Neck: Evaluation mildly limited secondary to artifact. There is no evidence of vascular injury, specifically no arterial stenosis, occlusion, dissection, or pseudoaneurysm. No hemodynamically significant stenosis bilateral internal carotid arteries as determined by NASCET criteria. Left vertebral artery arises directly from the aortic arch, normal variant. Few subcentimeter right cervical lymph nodes, not significantly enlarged and the CT criteria. Suggestion of subtle stranding right supraclavicular region, recommend correlation for contusion. Procedure Note Alec Augustin MD - 05/04/2025 CLINICAL INDICATION: poly trauma TECHNIQUE: Routine contiguous axial CT images of the head and face were obtainedwithout contrast administration. The axial dataset through the face wasused to reconstruct images in the sagittal and coronal planes. Contrast-enhanced CT angiogram of the head and neck was obtained afteradministration of intravenous iodinated contrast using 0.6 mm axial slicethickness with multiplanar reformations and maximum intensity projections.In addition, 3D images were created and reviewed. AI Utilization: None Total DLP (Dose-Length Product): 8059.25 mGy.cm (accession [id number]),8059.25 mGy.cm (accession [id number]), 8059.25 mGy.cm (accession [id number]),8059.25 mGy.cm (accession [id number]). Please note: The reported valuerepresents the total of one or more individual components during the CTacquisition on this date and at this time, and as such, the same value mayappear in more than one CT report depending on the interpreting/reportingphysicians. COMPARISON: None. FINDINGS: CT Head without: No acute intracranial hemorrhage or acute large territorial infarction. Nofocal mass, mass effect, midline shift. Ventricles and cisternal spacesgrossly within normal limits for patient age. No displaced or depressed calvarial fractures. The mastoid air cells areclear. CT Face: Facial bones: Age-indeterminate minimally displaced nasal fractures.Otherwise no acute facial fracture. Paranasal sinuses: Minimal paranasal sinus mucosal thickening. Globes: Bilateral globes appear intact. Soft tissues: No soft tissue swelling or hematoma. CTA Head: Slight fenestration basilar artery. There is no evidence of vascularinjury, specifically no arterial stenosis, occlusion, dissection, orpseudoaneurysm. CTA Neck: Evaluation mildly limited secondary to artifact. There is no evidence ofvascular injury, specifically no arterial stenosis, occlusion, dissection,or pseudoaneurysm. No hemodynamically significant stenosis bilateralinternal carotid arteries as determined by NASCET criteria. Left vertebralartery arises directly from the aortic arch, normal variant. Few subcentimeter right cervical lymph nodes, not significantly enlargedand the CT criteria. Suggestion of subtle stranding right supraclavicular region, recommendcorrelation for contusion. IMPRESSION: No acute intracranial hemorrhage or acute large territorial infarction. Age-indeterminate minimally displaced nasal fractures. Otherwise no acutefacial fracture. No acute traumatic injury, significant stenosis, or occlusion majorintracranial arteries or cervical carotid/vertebral arteries. Suggestion of subtle stranding right supraclavicular region, recommendcorrelation for contusion. CRITICAL RESULT: No. COMMUNICATION: Per this written report. Drafted by Alec Augusitn MD on 05/04/2025 9:12 PM Final report signed by Alec Augustin MD on 05/04/2025 9:24 PM us Gauri Hall MD IMG CT PROCEDURES Final Result * CT Head wo IV Contrast (05/04/2025 8:29 PM EDT) Anatomical Region Laterality Modality Head Computed Tomogra phy Impressions 05/04/2025 9:24 PM EDT No acute intracranial hemorrhage or acute large territorial infarction. Age-indeterminate minimally displaced nasal fractures. Otherwise no acute facial fracture. No acute traumatic injury, significant stenosis, or occlusion major intracranial arteries or cervical carotid/vertebral arteries. Suggestion of subtle stranding right supraclavicular region, recommend correlation for contusion. CRITICAL RESULT: No. COMMUNICATION: Per this written report. Drafted by Alec Augustin MD on 05/04/2025 9:12 PM Final report signed by Alec Augustin MD on 05/04/2025 9:24 PM Narrative 05/04/2025 9:24 PM EDT CLINICAL INDICATION: poly trauma TECHNIQUE: Routine contiguous axial CT images of the head and face were obtained without contrast administration. The axial dataset through the face was used to reconstruct images in the sagittal and coronal planes. Contrast-enhanced CT angiogram of the head and neck was obtained after administration of intravenous iodinated contrast using 0.6 mm axial slice thickness with multiplanar reformations and maximum intensity projections. In addition, 3D images were created and reviewed. AI Utilization: None Total DLP (Dose-Length Product): 8059.25 mGy.cm (accession [id number]), 8059.25 mGy.cm (accession [id number]), 8059.25 mGy.cm (accession [id number]), 8059.25 mGy.cm (accession [id number]). Please note: The reported value represents the total of one or more individual components during the CT acquisition on this date and at this time, and as such, the same value may appear in more than one CT report depending on the interpreting/reporting physicians. COMPARISON: None. FINDINGS: CT Head without: No acute intracranial hemorrhage or acute large territorial infarction. No focal mass, mass effect, midline shift. Ventricles and cisternal spaces grossly within normal limits for patient age. No displaced or depressed calvarial fractures. The mastoid air cells are clear. CT Face: Facial bones: Age-indeterminate minimally displaced nasal fractures. Otherwise no acute facial fracture. Paranasal sinuses: Minimal paranasal sinus mucosal thickening. Globes: Bilateral globes appear intact. Soft tissues: No soft tissue swelling or hematoma. CTA Head: Slight fenestration basilar artery. There is no evidence of vascular injury, specifically no arterial stenosis, occlusion, dissection, or pseudoaneurysm. CTA Neck: Evaluation mildly limited secondary to artifact. There is no evidence of vascular injury, specifically no arterial stenosis, occlusion, dissection, or pseudoaneurysm. No hemodynamically significant stenosis bilateral internal carotid arteries as determined by NASCET criteria. Left vertebral artery arises directly from the aortic arch, normal variant. Few subcentimeter right cervical lymph nodes, not significantly enlarged and the CT criteria. Suggestion of subtle stranding right supraclavicular region, recommend correlation for contusion. Procedure Note Alec Augustin MD - 05/04/2025 CLINICAL INDICATION: poly trauma TECHNIQUE: Routine contiguous axial CT images of the head and face were obtainedwithout contrast administration. The axial dataset through the face wasused to reconstruct images in the sagittal and coronal planes. Contrast-enhanced CT angiogram of the head and neck was obtained afteradministration of intravenous iodinated contrast using 0.6 mm axial slicethickness with multiplanar reformations and maximum intensity projections.In addition, 3D images were created and reviewed. AI Utilization: None Total DLP (Dose-Length Product): 8059.25 mGy.cm (accession [id number]),8059.25 mGy.cm (accession [id number]), 8059.25 mGy.cm (accession [id number]),8059.25 mGy.cm (accession [id number]). Please note: The reported valuerepresents the total of one or more individual components during the CTacquisition on this date and at this time, and as such, the same value mayappear in more than one CT report depending on the interpreting/reportingphysicians. COMPARISON: None. FINDINGS: CT Head without: No acute intracranial hemorrhage or acute large territorial infarction. Nofocal mass, mass effect, midline shift. Ventricles and cisternal spacesgrossly within normal limits for patient age. No displaced or depressed calvarial fractures. The mastoid air cells areclear. CT Face: Facial bones: Age-indeterminate minimally displaced nasal fractures.Otherwise no acute facial fracture. Paranasal sinuses: Minimal paranasal sinus mucosal thickening. Globes: Bilateral globes appear intact. Soft tissues: No soft tissue swelling or hematoma. CTA Head: Slight fenestration basilar artery. There is no evidence of vascularinjury, specifically no arterial stenosis, occlusion, dissection, orpseudoaneurysm. CTA Neck: Evaluation mildly limited secondary to artifact. There is no evidence ofvascular injury, specifically no arterial stenosis, occlusion, dissection,or pseudoaneurysm. No hemodynamically significant stenosis bilateralinternal carotid arteries as determined by NASCET criteria. Left vertebralartery arises directly from the aortic arch, normal variant. Few subcentimeter right cervical lymph nodes, not significantly enlargedand the CT criteria. Suggestion of subtle stranding right supraclavicular region, recommendcorrelation for contusion. IMPRESSION: No acute intracranial hemorrhage or acute large territorial infarction. Age-indeterminate minimally displaced nasal fractures. Otherwise no acutefacial fracture. No acute traumatic injury, significant stenosis, or occlusion majorintracranial arteries or cervical carotid/vertebral arteries. Suggestion of subtle stranding right supraclavicular region, recommendcorrelation for contusion. CRITICAL RESULT: No. COMMUNICATION: Per this written report. Drafted by Alec Augustin MD on 05/04/2025 9:12 PM Final report signed by Alec Augustin MD on 05/04/2025 9:24 PM Gauri Hall MD IMG CT PROCEDURES Final Result * CT Angio Head (05/04/2025 8:29 PM EDT)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 Order 05/05/2025 05/06/2025 05/07/2025 acetaminophen (Tylenol) tablet 1,000 mg 1,000 mg, Oral, Every 6 hours scheduled, First dose on Sun05/05/25 at 0210, Until Discontinued, Routine 0223 (Given - Provider: Velma Mascorro RN)0528 (Given - Provider: Leda Ji RN)0543 (MAR Hold - Provider: Automatic Transfer Provider - Reason: Patient in procedure)1043 (MAR Unhold - Provider: Mariah Hernandez, AYE)1158 (Not Given - Provider: Mariah Hernandez RN - Reason: Order parameters not met - Comment: Gave PACU dose)1728 (Given - Provider: Nathalie Jennings RN)2304 (Not Given - Provider: Carmen Nelson - Reason: Patient/family refused) 0506 (Given - Provider: Carmen Nelson)1256 (Given - Provider: Nathalie Jennings RN)1835 (Given - Provider: Lelo Duarte RN) 0017 (Given - Provider: Juan Antonio Benz RN)0542 (Given - Provider: Juan Antonio Benz RN)1204 (Given - Provider: Fiorella Carols RN) ceFAZolin (Ancef) injection 2 g (CANCELED) 2 g, Intravenous, Every 8 hours, First dose on Sun05/05/25 at 0400, Until Discontinued, Routine, Sign 0529 (Given - Provider: Leda Ji RN)1200 (Canceled Entry - Provider: Nathalie Jennings RN)2039 (Given - Provider: Carmen Nelson) 0349 (Given - Provider: Carmen Nelson)1256 (Given - Provider: Nathalie Jennings RN) ceFAZolin (Ancef) injection 3 g (COMPLETED) 3 g, Intravenous, Every 8 hours, 3 doses, First dose on Sun05/05/25 at 1600, Last dose on Sun05/06/25 at 0800, Routine, Sign 1727 (Given - Provider: Nathalie Jennings RN)2311 (Given - Provider: Carmen Nelson) 0832 (Given - Provider: Nathalie Jennings RN) cetirizine (ZyrTEC) tablet 10 mg 10 mg, Oral, Nightly, First dose on Sun05/05/25 at 2245, Until Discontinued, Routine 2205 (Given - Provider: Carmen Nelson) 2048 (Given - Provider: Juan Antonio Benz RN) enoxaparin (Lovenox) syringe 60 mg 60 mg, Subcutaneous, 2 times daily, First dose on Sun05/05/25 at 2100, Until Discontinued, Routine 2038 (Given - Provider: Carmen Nelson) 0832 (Given - Provider: Nathalie Jennings RN)2048 (Given - Provider: Juan Antonio Benz RN) 0822 (Given - Provider: Fiorella Carlos, AYE) ketamine (Ketalar) injection 40 mg (COMPLETED) 40 mg (rounded from 41.7 mg = 0.3 mg/kg 139 kg), Intravenous, Once, 1 dose, On Sun05/05/25 at 0100, Administer over 1 Minutes, STAT 0136 (Given - Provider: Velma Mascorro RN) lidocaine (Lidoderm) 5 % patch 1 patch (CANCELED) 1 patch, Apply externally, Every 24 hours, First dose on Sun05/05/25 at 1700, Until Discontinued, Administer over 12 Hours, Routine 1728 (Medication Applied - Provider: Nathalie Jennings RN) 0448 (Medication Removed - Provider: Carmen Nelson) lidocaine (Lidoderm) 5 % patch 1 patch 1 patch, Apply externally, Every 24 hours scheduled, First dose (after last modification) on Sun05/06/25 at 0930, Until Discontinued, Administer over 12 Hours, Routine 0833 (Not Given - Provider: Nathalie Jennings RN - Reason: Patient/family refused) 0823 (Medication Applied - Provider: Fiorella Carlos RN - Comment: left leg)1429 (Due: Medication Removed - Provider: Automatic Discharge Provider - Comment: Time automatically adjusted from order being discontinued) methocarbamol (Robaxin) tablet 500 mg (CANCELED) 500 mg, Oral, Every 8 hours, First dose on Sun05/05/25 at 0210, Until Discontinued, Routine 0223 (Given - Provider: Velma Mascorro RN)0543 (MAR Hold - Provider: Automatic Transfer Provider - Reason: Patient in procedure)1010 (Dose Auto Held - Provider: Automatic Transfer Provider)1043 (MAR Unhold - Provider: Mariah Hernandez RN) methocarbamol (Robaxin) tablet 500 mg 500 mg, Oral, Every 6 hours scheduled, First dose (after last modification) on Sun05/05/25 at 1200, Until Discontinued, Routine 1152 (Given - Provider: Mariah Hernandez RN)1728 (Given - Provider: Nathalie Jennings RN)2312 (Given - Provider: Carmen Nelson) 0506 (Given - Provider: Carmen Nelson)1255 (Given - Provider: Nathalie Jennings, AYE)1835 (Given - Provider: Lelo Duarte RN) 0017 (Given - Provider: Juan Antonio Benz RN)0542 (Given - Provider: Juan Antonio Benz RN)1204 (Given - Provider: Fiorella Carlos, AYE) mupirocin (Bactroban) 2 % ointment 1 Application Each Nostril, 2 times daily, 10 doses, First dose on Sun05/05/25 at 0900, Last dose on Sun05/09/25 at 2100, Routine 0543 (MAR Hold - Provider: Automatic Transfer Provider - Reason: Patient in procedure)0900 (Dose Auto Held - Provider: Automatic Transfer Provider)1346 (MAR Unhold - Provider: Automatic Transfer Provider)2030 (Not Given - Provider: Carmen Nelson - Reason: Patient/family refused) 0832 (Given - Provider: Nathalie Jennings RN)2048 (Given - Provider: Juan Antonio Benz RN) 0823 (Given - Provider: Fiorella Carlos, AYE) polyethylene glycol (Miralax) packet 17 g (CANCELED) 17 g, Oral, Daily, First dose on Sun05/06/25 at 0900, Until Discontinued, Routine 0831 (Given - Provider: Nathalie Jennings, AYE) 0823 (Given - Provider: Fiorella Carlos, AYE) polyethylene glycol (Miralax) packet 17 g 17 g, Oral, 2 times daily, First dose (after last modification) on Sun05/07/25 at 2100, Until Discontinued, Routine Povidone-Iodine 5 % swab solution 1 Application (COMPLETED) Nasal, Once, 1 dose, On Sun05/05/25 at 0700, Routine 0648 (Given - Provider: Terri Monroy RN) senna-docusate (Lara-Colace) 8.6-50 MG per tablet 2 tablet 2 tablet, Oral, 2 times daily, First dose on Sun05/05/25 at 2100, Until Discontinued, Routine 2030 (Not Given - Provider: Carmen Nelson - Reason: Patient/family refused) 0832 (Given - Provider: Nathalie Jennings RN)2048 (Given - Provider: Juan Antonio Benz RN) 0822 (Given - Provider: Fiorella Carlos RN) sodium chloride 0.9 % flush 10 mL(Linked Group 1) 10 mL, Intravenous, Every 12 hours, First dose on Sun05/05/25 at 0210, Until Discontinued, Routine 0223 (Given - Provider: Velma Mascorro RN)0543 (MAR Hold - Provider: Automatic Transfer Provider - Reason: Patient in procedure)1346 (MAR Unhold - Provider: Automatic Transfer Provider)1404 (Given - Provider: Nathalie Jennings RN) 0115 (Given - Provider: Carmen Nelson)1311 (Given - Provider: Nathalie Jennings RN) 0412 (Given - Provider: Juan Antonio Benz RN)1342 (Not Given - Provider: Fiorella Carlos RN - Reason: Loss of IV access) sodium chloride 0.9 % flush 10 mL (CANCELED)(Linked Group 2) 10 mL, Intravenous, Every 12 hours, First dose on Sun05/05/25 at 0700, Until Discontinued, Routine, Holding - Preprocedure 1405 (Given - Provider: Nathalie Jennings RN) Continuous Medication Order 05/05/2025 05/06/2025 05/07/2025 dextrose 5 % and lactated Ringer's infusion (CANCELED) 100 mL/hr, Intravenous, Continuous, Starting on Sun05/05/25 at 0210, Until Sun05/06/25 at 1009, Routine 0223 (New Bag - Provider: Velma Mascorro RN)1134 (New Bag - Provider: Mariah Hernandez RN) PRN Medication Order 05/05/2025 05/06/2025 05/07/2025 acetaminophen (Tylenol) tablet 1,000 mg (COMPLETED) 1,000 mg, Oral, Once as needed, 1 dose, Starting on Sun05/05/25 at 1034, Until Sun05/05/25 at 1151, Routine, Recovery (Phase I only), pain score of >1 out of 10 1151 (Given - Provider: Mariah Hernandez RN) fentaNYL (Sublimaze) injection 50 mcg (COMPLETED) 50 mcg, Intravenous, Every 5 min PRN, 2 doses, Starting on Sun05/05/25 at 1034, Until Sun05/05/25 at 1202, Routine, Recovery (Phase I only), pain score of 5-8 out of 10 1152 (Given - Provider: Mariah Hernandez RN)1202 (Given - Provider: Mariah Hernandez RN) HYDROmorphone (Dilaudid) injection 0.5 mg (COMPLETED) 0.5 mg, Intravenous, Every 10 min PRN, 2 doses, Starting on Sun05/05/25 at 1034, Until Sun05/05/25 at 1239, Routine, Recovery (Phase I only), pain score of 9-10 out of 10 1219 (Given - Provider: Mariah Hernandez RN)1239 (Given - Provider: Mariah Hernandez RN) HYDROmorphone (Dilaudid) injection 0.5 mg (CANCELED) 0.5 mg, Intravenous, Every 4 hours PRN, Starting on Sun05/05/25 at 1054, Until Sun05/06/25 at 1007, Routine, severe pain refractory to oxycodone 1000 (Given - Provider: Nathlaie Jennings, AYE) ondansetron (Zofran) injection 4 mg(Linked Group 3) 4 mg, Intravenous, Every 6 hours PRN, Starting on Sun05/05/25 at 0205, Until Cady 05/07/25 at 1629, Routine, vomiting, nausea 0543 (MAR Hold - Provider: Automatic Transfer Provider - Reason: Patient in procedure)1346 (MAR Unhold - Provider: Automatic Transfer Provider)1742 (Given - Provider: Nathalie Jennings, AYE) ondansetron ODT (Zofran-ODT) disintegrating tablet 4 mg(Linked Group 3) 4 mg, Oral, Every 6 hours PRN, Starting on Sun05/05/25 at 0205, Until Cady 25 at 1629, Routine, nausea, vomiting 0543 (NOV Hold - Provider: Automatic Transfer Provider - Reason: Patient in procedure)1346 ([facility] Unhold - Provider: Automatic Transfer Provider)1742 (See Alternative - Provider: Nathalie Jennings, AYE) oxyCODONE (Roxicodone) immediate release tablet 10 mg (CANCELED)(Linked Group 4) 10 mg, Oral, Once as needed, 2 doses, Starting on Sun05/05/25 at 1034, Until Sun05/05/25 at 1346, Routine, Recovery (Phase I only), pain score of 6-8 out of 10 1151 (Given - Provider: Mariah Hernandez RN) oxyCODONE (Roxicodone) immediate release tablet 10 mg(Linked Group 5) 10 mg, Oral, Every 4 hours PRN, Starting on Sun05/05/25 at 1100, Until Sun05/07/25 at 1629, Routine, severe pain 2312 (Given - Provider: Carmen Nelson) 0359 (See Alternative - Provider: Carmen Nelson)0903 (See Alternative - Provider: Nathalie Jennings, AYE)1303 (Given - Provider: Nathalie Jennings, AYE)1835 (Given - Provider: Lelo Duarte RN) 0416 (Given - Provider: Juan Antonio Benz RN)0822 (Given - Provider: Fiorella Carlos, AYE)1341 (See Alternative - Provider: Fiorella Carlos, AYE) oxyCODONE (Roxicodone) immediate release tablet 5 mg (CANCELED) 5 mg, Oral, Every 4 hours PRN, Starting on Sun05/05/25 at 0205, Until Sun05/05/25 at 1101, Routine, severe pain 0528 (Given - Provider: Leda Ji RN)0543 ([facility] Hold - Provider: Automatic Transfer Provider - Reason: Patient in procedure)1101 ([facility] Unhold - Provider: Marcia Capone, PharmD) oxyCODONE (Roxicodone) immediate release tablet 5 mg(Linked Group 5) 5 mg, Oral, Every 4 hours PRN, Starting on Sun05/05/25 at 1100, Until Sun05/07/25 at 1629, Routine, moderate pain 2312 (See Alternative - Provider: Carmen Nelson) 0359 (Given - Provider: Carmen Nelson)0903 (Given - Provider: Nathalie Jennings, AYE)1303 (See Alternative - Provider: Nathalie Jennings, AYE)1835 (See Alternative - Provider: Lelo Duarte RN) 0416 (See Alternative - Provider: Juan Antonio Benz RN)0822 (See Alternative - Provider: Fiorella Carlos, AYE)1341 (Given - Provider: Fiorella Carlos, AYE) simethicone (Mylicon) chewable tablet 40 mg 40 mg, Oral, 4 times daily PRN, Starting on Sun05/06/25 at 0831, Until Sun05/07/25 at 1629, Routine, flatulence sodium chloride 0.9 % flush 10 mL(Linked Group 1) 10 mL, Intravenous, As needed, Starting on Sun05/05/25 at 0203, Until Sun05/07/25 at 1629, Routine, line care 0543 (NOV Hold - Provider: Automatic Transfer Provider - Reason: Patient in procedure)1346 (MAR Unhold - Provider: Automatic Transfer Provider) No Frequency Medication Order 05/05/2025 05/06/2025 05/07/2025 ondansetron (Zofran) 4 MG/2ML injection - Pyxis Override Pull (COMPLETED) 1 dose, Starting on Sun05/05/25 at 0144, Until Sun05/05/25 at 0151 0151 (Given - Provider: Velma Mascorro RN) sterile water injection - Pyxis Override Pull (COMPLETED) 1 dose, Starting on Sun05/05/25 at 1733, Until Sun05/05/25 at 1749 1749 (Given - Provider: Nathalie Jennings, AYE) Linked Groups Order Group 1: Insert peripheral IV (COMPLETED) Once, On Sun05/05/25 at 0204, For 1 occurrence And Saline lock IV (COMPLETED) Once, On Sun05/05/25 at 0204, For 1 occurrence And sodium chloride 0.9 % flush 10 mLJump to med 10 mL, Intravenous, Every 12 hours, First dose on Sun05/05/25 at 0210, Until Discontinued, Routine And sodium chloride 0.9 % flush 10 mLJump to med 10 mL, Intravenous, As needed, Starting on Sun05/05/25 at 0203, Until Sun05/07/25 at 1629, Routine, line care Group 2: Insert peripheral IV (CANCELED) Once, On Sun05/05/25 at 0615, For 1 occurrence, Holding - Preprocedure And Saline lock IV (CANCELED) Once, On Sun05/05/25 at 0615, For 1 occurrence, Holding - Preprocedure And sodium chloride 0.9 % flush 10 mL (CANCELED)Jump to med 10 mL, Intravenous, Every 12 hours, First dose on Sun05/05/25 at 0700, Until Discontinued, Routine, Holding - Preprocedure And sodium chloride 0.9 % flush 10 mL (CANCELED) 10 mL, Intravenous, As needed, Starting on Sun05/05/25 at 0614, Until Sun05/05/25 at 1346, Routine, Holding - Preprocedure, line care Group 3: ondansetron ODT (Zofran-ODT) disintegrating tablet 4 mgJump to med 4 mg, Oral, Every 6 hours PRN, Starting on Sun05/05/25 at 0205, Until Sun05/07/25 at 1629, Routine, nausea, vomiting Or ondansetron (Zofran) injection 4 mgJump to med 4 mg, Intravenous, Every 6 hours PRN, Starting on Sun05/05/25 at 0205, Until Sun05/07/25 at 1629, Routine, vomiting, nausea Group 4: oxyCODONE (Roxicodone) immediate release tablet 5 mg (CANCELED) 5 mg, Oral, Once as needed, 2 doses, Starting on Sun05/05/25 at 1034, Until Sun05/05/25 at 1346, Routine, Recovery (Phase I only), pain score of 3-5 out of 10 Or oxyCODONE (Roxicodone) immediate release tablet 10 mg (CANCELED)Jump to med 10 mg, Oral, Once as needed, 2 doses, Starting on Sun05/05/25 at 1034, Until Sun05/05/25 at 1346, Routine, Recovery (Phase I only), pain score of 6-8 out of 10 Group 5: oxyCODONE (Roxicodone) immediate release tablet 5 mgJump to med 5 mg, Oral, Every 4 hours PRN, Starting on Sun05/05/25 at 1100, Until Cady 05/07/25 at 1629, Routine, moderate pain Or oxyCODONE (Roxicodone) immediate release tablet 10 mgJump to med 10 mg, Oral, Every 4 hours PRN, Starting on Sun05/05/25 at 1100, Until Sun05/07/25 at 1629, Routine, severe pain documented in this encounter Additional Health Concerns Assessment Noted Time A Body Mass Index follow-up plan has been documented for the patient 05/07/2025 12:16 PM EDT documented as of this encounter Care Teams Pepper Picker Relationship Specialty Start Date End Date Milo Schaefer DO [address] [place] [address] PCP - General 05/16/24 documented as of this encounter
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
--- OUTSIDE RECORDS SUMMARY | 2025-05-05 07:30 | XMS_ITS | Encounter Summary ---
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 lt [facility] [address] [place] [address] * Prothrombin Time/INR (05/05/2025 1:12 AM EDT) Prothrombin Time 13.8 12.0 - 14.3 sec 05/05/2025 1:28 AM EDT [facility] INR 1.1 0.9 - 1.1 05/05/2025 1:28 AM EDT [facility] Blood Venous blood specimen / Unknown Venipuncture / Unknown 05/05/2025 1:12 AM EDT 05/05/2025 1:14 AM EDT Narrative [facility] - 05/05/2025 1:28 AM EDT OPTIMAL INR RANGES FOR PATIENT ON ORAL ANTICOAGULANT THERAPY Prevention of venous thromboembolism INR 2.0 to 3.0 In patients with heart disease: Atrial fibrillation INR 2.0 to 3.0 Valvular heart disease INR 2.0 to 3.0 Tissue heart valves INR 2.0 to 3.0 Mechanical prosthetic valves INR 2.5 to 3.5 Prevention of recurrent ME INR 2.5 to 3.5 us Phoenix Saunders MD LAB BLOOD ORDERABLES Final Resu lt [facility] [address] [place] [address] * (ABNORMAL) Basic Metabolic Panel, Plasma (05/05/2025 1:12 AM EDT) Glucose, Plasma 139(H) 74 - 99 mg/dL 05/05/2025 1:53 AM EDT [facility] BUN, Plasma 13 7 - 21 mg/dL 05/05/2025 1:53 AM EDT [facility] Creatinine, Plasma 0.86 0.70 - 1.20 mg/dL 05/05/2025 1:53 AM EDT [facility] BUN/Creatinine Ratio 15 05/05/2025 1:53 AM EDT [facility] Sodium, Plasma 137 136 - 145 mmol/L 05/05/2025 1:53 AM EDT [facility] Potassium, Plasma 6.5(HH) 3.6 - 4.9 mmol/L 05/05/2025 1:53 AM EDT [facility] Comment:Hemolyzed, result ma y be falsely increased. Chloride, Plasma 104 97 - 107 mmol/L 05/05/2025 1:53 AM EDT [facility] CO2, Plasma 21(L) 22 - 29 mmol/L 05/05/2025 1:53 AM EDT [facility] Anion Gap 12 6 - 16 mmol/L 05/05/2025 1:53 AM EDT [facility] Total Calcium, Plasma 8.6(L) 8.9 - 10.2 mg/dL 05/05/2025 1:53 AM EDT [facility] eGFRcr 127.9 mL/min/1.7 3m*2 05/05/2025 1:53 AM EDT [facility] Comment:Reported eGFRcr in m L/min/1.73m2 is based the CKD-EPI 2020 equation that does not use a race coefficient. Blood Venous blood specimen / Unknown Venipuncture / Unknown 05/05/2025 1:12 AM EDT 05/05/2025 1:14 AM EDT us Phoenix Saunders MD LAB BLOOD ORDERABLES Final Resu lt [facility] [address] [place] [address] * (ABNORMAL) CBC W/O Differential (05/05/2025 1:12 AM EDT) WBC Count 19.01(H) 3.70 - 10.30 10*3/uL LAB HEMATOLOGY METHOD 05/05/2025 1:16 AM EDT [facility] RBC Count 4.99 4.60 - 6.10 10*6/uL LAB HEMATOLOGY METHOD 05/05/2025 1:16 AM EDT [facility] HGB 14.5 13.7 - 17.5 g/dL LAB HEMATOLOGY METHOD 05/05/2025 1:16 AM EDT [facility] HCT 40.1 40.0 - 51.0 % LAB HEMATOLOGY METHOD 05/05/2025 1:16 AM EDT [facility] Platelet Count 219 155 - 369 10*3/uL LAB HEMATOLOGY METHOD 05/05/2025 1:16 AM EDT [facility] MCV 80 79 - 98 fL LAB HEMATOLOGY METHOD 05/05/2025 1:16 AM EDT [facility] MCH 29.1 26.0 - 32.0 pg LAB HEMATOLOGY METHOD 05/05/2025 1:16 AM EDT [facility] MCHC 36.2(H) 30.7 - 35.5 g/dL LAB HEMATOLOGY METHOD 05/05/2025 1:16 AM EDT [facility] RDW 12.6 11.5 - 14.5 % LAB HEMATOLOGY METHOD 05/05/2025 1:16 AM EDT [facility] MPV 10.1 8.8 - 12.5 fL LAB HEMATOLOGY METHOD 05/05/2025 1:16 AM EDT [facility] nRBC 0.0 <=0.0 per 100 WBCs LAB HEMATOLOGY METHOD 05/05/2025 1:16 AM EDT [facility] Blood Venous blood specimen / Unknown Venipuncture / Unknown 05/05/2025 1:12 AM EDT 05/05/2025 1:14 AM EDT us Phoenix Saunders MD LAB BLOOD ORDERABLES Final Resu lt Performing Organization Address City/[facility] Co de Phone Number [facility] [address] [place] [address] * ECG Adult (05/05/2025 1:02 AM EDT) EKG DIAGNOSIS CLASS Abnormal MUSE ECG Ventricular Rate 107 BPM MUSE ECG Atrial Rate 107 BPM MUSE ECG AK Interval 136 ms MUSE ECG QRSD Interval 86 ms MUSE ECG QT Interval 332 ms MUSE ECG QTC Interval 443 ms MUSE ECG P [place] 72 degrees MUSE ECG R [place] 68 degrees MUSE ECG T Wave [place] 11 degrees MUSE ECG Diagnosis Sinus tachycardia MUSE ECG Diagnosis Nonspecific T wave abnormality MUSE ECG Diagnosis Abnormal ECG MUSE ECG Diagnosis MUSE ECG Diagnosis Confirmed by Thomas Solorzano ([id number]) on 05/05/2025 10:17:42 AM MUSE ECG 05/05/2025 1:02 AM EDT 05/05/2025 10:17 AM EDT us Phoenix Saunders MD ECG ORDERABLES Final Result Performing Organization Address City/[facility]/ZIP Co de Phone Number MUSE ECG * CT Knee Left wo [...] Al Watt MD on 05/04/2025 10:33 PM Phoenix Saunders MD IMG CT PROCEDURES Final [...] 1(H) <1 ng/mL 05/07/2025 12:00 PM EDT [facility] Norfentanyl <2 <2 ng/mL 05/07/2025 12:00 PM EDT [facility] Urine Urine specimen obtained by clean catch procedure / Unknown Non-blood Collection / Unknown 05/04/2025 8:48 PM EDT 05/04/2025 8:50 PM EDT Narrative [facility] - 05/07/2025 12:00 PM EDT Drug analysis is confirmed by LC-MS/MS (LC Tandem Mass Spectrometry) on Urine specimens. This test was developed and its performance characteristics determined by [facility]. It has not been cleared or approved by the FDA. The laboratory is regulated under CLIA as qualified to perform high-complexity testing. This test is used for clinical purposes. Testing is performed at the [facility], [facility] Laboratory. us Gauri Hall MD LAB URINE ORDERABLES Final Resu lt Performing Organization Address City/State/[facility] de Phone Number [facility] [address] [place] [address] * Amphetamine Urine Confirm LCMSMS (05/04/2025 8:48 PM EDT) Amphetamine <50 <50 ng/mL 05/07/2025 12:00 PM EDT [facility] Methamphetamine <50 <50 ng/mL 12:00 PM EDT [facility] MDA <50 <50 ng/mL 05/07/2025 12:00 PM EDT [facility] MDMA <50 <50 ng/mL 05/07/2025 12:00 PM EDT [facility] Urine Urine specimen obtained by clean catch procedure / Unknown Non-blood Collection / Unknown 05/04/2025 8:48 PM EDT 05/04/2025 8:50 PM EDT Narrative [facility] - 05/07/2025 12:00 PM EDT Drug analysis is confirmed by LC-MS/MS (LC Tandem Mass Spectrometry) on Urine specimens. This test was developed and its performance characteristics determined by [facility]. It has not been cleared or approved by the FDA. The laboratory is regulated under CLIA as qualified to perform high-complexity testing. This test is used for clinical purposes. Testing is performed at the [facility], [facility]. Gauri Hall MD LAB URINE ORDERABLES Final Resu lt Performing Organization Address [facility] de Phone Number [facility] [address] [place] [phone] * Urinalysis Microscopic Examination (05/04/2025 8:48 PM EDT) Urine Urine specimen obtained by clean catch procedure / Unknown Non-blood Collection / Unknown 05/04/2025 8:48 PM EDT 05/04/2025 8:50 PM EDT Gauri Hall MD LAB URINE ORDERABLES Final Resu lt Performing Organization Address [facility] Co de Phone Number [facility] [address] [place] [address] * (ABNORMAL) Urinalysis with reflex microscopic (Culture NOT Included) (05/04/2025 8:48 PM EDT) Color, Urine Yellow LAB URINALYSIS - AUTOMATED METHOD 05/04/2025 9:22 PM EDT [facility] Clarity, Urine Clear LAB URINALYSIS - AUTOMATED METHOD 05/04/2025 9:22 PM EDT [facility] Spec [place], Urine >1.030(H) 1.005 - 1.030 LAB URINALYSIS - AUTOMATED METHOD 05/04/2025 9:22 PM EDT [facility] pH, Urine 6.0 5.0 - 8.0 LAB URINALYSIS - AUTOMATED METHOD 05/04/2025 9:22 PM EDT [facility] Protein, Urine 100(A) Negative mg/dL LAB URINALYSIS - AUTOMATED METHOD 05/04/2025 9:22 PM EDT [facility] Glucose, Urine Negative Negative mg/dL LAB URINALYSIS - AUTOMATED METHOD 05/04/2025 9:22 PM EDT [facility] Ketones, Urine Negative Negative mg/dL LAB URINALYSIS - AUTOMATED METHOD 05/04/2025 9:22 PM EDT [facility] Blood, Urine Large(A) Negative LAB URINALYSIS - AUTOMATED METHOD 05/04/2025 9:22 PM EDT [facility] Bilirubin, Urine Negative Negative LAB URINALYSIS - AUTOMATED METHOD 05/04/2025 9:22 PM EDT [facility] Urobilinogen, Urine 1.0 0.2 to 1.0 mg/dL LAB URINALYSIS - AUTOMATED METHOD 05/04/2025 9:22 PM EDT [facility] Leukocytes, Urine Negative Negative LAB URINALYSIS - AUTOMATED METHOD 05/04/2025 9:22 PM EDT [facility] Nitrite, Urine Negative Negative LAB URINALYSIS - AUTOMATED METHOD 05/04/2025 9:22 PM EDT [facility] RBC, Urine 31 - 50(A) 0 to 3 /HPF LAB URINALYSIS - AUTOMATED METHOD 05/04/2025 9:22 PM EDT [facility] Comment:This result was prev iously suppressed from the chart. WBC, Urine 0 - 5 0 to 5 /HPF LAB URINALYSIS - AUTOMATED METHOD 05/04/2025 9:22 PM EDT [facility] Comment:This result was prev iously suppressed from the chart. Squamous Epithelial Cells 0 - 2 0 to 5 /HPF LAB URINALYSIS - AUTOMATED METHOD 05/04/2025 9:22 PM EDT [facility] Comment:This result was prev iously suppressed from the chart. Hyaline Casts 11 - 20(A) 0 to 5 /LPF LAB URINALYSIS - AUTOMATED METHOD 05/04/2025 9:22 PM EDT [facility] Comment:This result was prev iously suppressed from the chart. Bacteria, Urine Negative Negative LAB URINALYSIS - AUTOMATED METHOD 05/04/2025 9:22 PM EDT [facility] Comment:This result was prev iously suppressed from the chart. Amorphous Crystals Present Absent LAB URINALYSIS - AUTOMATED METHOD 05/04/2025 9:22 PM EDT [facility] Comment:This result was prev iously suppressed from the chart. Mucus Present LAB URINALYSIS - AUTOMATED METHOD 05/04/2025 9:22 PM EDT [facility] Comment:This result was prev iously suppressed from the chart. Urine Urine specimen obtained by clean catch procedure / Unknown Non-blood Collection / Unknown 05/04/2025 8:48 PM EDT 05/04/2025 8:50 PM EDT us Gauri Hall MD LAB URINE ORDERABLES Final Resu lt [facility] [address] [place] [address] * Drug Abuse Screen, Urine (05/04/2025 8:48 PM EDT) Amphetamine Screen Urine Presumptive positive. Confirmation by LC-MS/MS to follow. Cutoff: 500 ng/mL 05/04/2025 9:08 PM EDT [facility] Benzodiazepines Screen Urine Negative Cutoff: 200 ng/mL 05/04/2025 9:08 PM EDT [facility] Cannabinoid Screen Urine Negative Cutoff: 50 ng/mL 05/04/2025 9:08 PM EDT [facility] Cocaine Screen Urine Negative Cutoff: 300 ng/mL 05/04/2025 9:08 PM EDT [facility] Barbiturate Screen Urine Negative Cutoff: 200 ng/mL 05/04/2025 9:08 PM EDT [facility] Opiate Screen Urine Negative Cutoff: 300 ng/mL 05/04/2025 9:08 PM EDT [facility] Methadone Screen Urine Negative Cutoff: 300 ng/mL 05/04/2025 9:08 PM EDT [facility] Buprenorphine Screen Urine Negative Cutoff: 10 ng/mL 05/04/2025 9:08 PM EDT [facility] Fentanyl Screen Urine Presumptive positive. Confirmation by LC-MS/MS to follow. Cutoff: 1 ng/mL 05/04/2025 9:08 PM EDT [facility] Oxycodone Screen Urine Negative Cutoff: 100 ng/mL 05/04/2025 9:08 PM EDT [facility] Urine Urine specimen obtained by clean catch procedure / Unknown Non-blood Collection / Unknown 05/04/2025 8:48 PM EDT 05/04/2025 8:50 PM EDT us Gauri Hall MD LAB URINE [place] [address] * Hepatitis C Antibody - ED (05/04/2025 8:36 PM EDT) Hepatitis C Antibody Negative Negative 05/04/2025 9:25 PM EDT [facility] Blood Venous blood specimen / Unknown Venipuncture / Unknown 05/04/2025 8:36 PM EDT 05/04/2025 8:43 PM EDT us Gauri Hall MD LAB BLOOD ORDERABLES Final Resu lt Performing Organization Address City/[facility]/ZIP Co de Phone Number [facility] [address] [place] [address] * CT Angio Abdomen Pelvis w Runoff [...] service by Dr. Monroe via telephone at [phone] on 05/05/2025. Preliminary report signed by Rad [...] Limited evaluation of the vertebral bodies especially C6-[id number] to photon starvation. No acute fracture. Discs: [...] service by Dr. Monroe via telephone at [phone] on 05/05/2025. Preliminary report signed by Rad [...] service by Dr. Monroe via telephone at [phone] on 05/05/2025. Preliminary report signed by Rad [...] Limited evaluation of the vertebral bodies especially C6-[id number] to photon starvation. No acute fracture. Discs: [...] service by Dr. Monroe via telephone at [phone] on 05/05/2025. Preliminary report signed by Rad [...] service by Dr. Monroe via telephone at [phone] on 05/05/2025. Preliminary report signed by Rad [...] Limited evaluation of the vertebral bodies especially C6-[id number] to photon starvation. No acute fracture. Discs: [...] service by Dr. Monroe via telephone at [phone] on 05/05/2025. Preliminary report signed by Rad [...] service by Dr. Monroe via telephone at [phone] on 05/05/2025. Preliminary report signed by Rad [...] Limited evaluation of the vertebral bodies especially C6-G7lbqepvyex to photon starvation. No acute fracture. Discs: [...] signing this report, I, the attending physician, attkhanhat I have personally reviewed the images/data for [...] service by Dr. Monroe via telephone at [phone] on 05/05/2025. Preliminary report signed by Rad [...] Limited evaluation of the vertebral bodies especially C6-I5ompmdidoo to photon starvation. No acute fracture. Discs: [...] service by Dr. Monroe via telephone at [phone] on 05/05/2025. Preliminary report signed by Rad [...] as well as the renal arteries and JAMSE appear to be patent. The SMA is [...] service by Dr. Monroe via telephone at [phone] on 05/05/2025. Preliminary report signed by Rad [...] Limited evaluation of the vertebral bodies especially C6-M5agmyqetdc to photon starvation. No acute fracture. Discs: [...] service by Dr. Monroe via telephone at [phone] on 05/05/2025. Preliminary report signed by Rad [...] Total DLP (Dose-Length Product): 8059.25 mGy.cm (accession [id number]), 8059.25 mGy.cm (accession [id number]), 8059.25 mGy.cm (accession [id number]), 8059.25 mGy.cm (accession [id number]). Please note: The reported value represents the [...] Total DLP (Dose-Length Product): 8059.25 mGy.cm (accession [id number]),8059.25 mGy.cm (accession [id number]), 8059.25 mGy.cm (accession [id number]),8059.25 mGy.cm (accession [id number]). Please note: The reported valuerepresents the total [...] Total DLP (Dose-Length Product): 8059.25 mGy.cm (accession [id number]), 8059.25 mGy.cm (accession [id number]), 8059.25 mGy.cm (accession [id number]), 8059.25 mGy.cm (accession [id number]). Please note: The reported value represents the [...] Total DLP (Dose-Length Product): 8059.25 mGy.cm (accession [id number]),8059.25 mGy.cm (accession [id number]), 8059.25 mGy.cm (accession [id number]),8059.25 mGy.cm (accession [id number]). Please note: The reported valuerepresents the total [...] Total DLP (Dose-Length Product): 8059.25 mGy.cm (accession [id number]), 8059.25 mGy.cm (accession [id number]), 8059.25 mGy.cm (accession [id number]), 8059.25 mGy.cm (accession [id number]). Please note: The reported value represents the [...] Total DLP (Dose-Length Product): 8059.25 mGy.cm (accession [id number]),8059.25 mGy.cm (accession [id number]), 8059.25 mGy.cm (accession [id number]),8059.25 mGy.cm (accession [id number]). Please note: The reported valuerepresents the total [...] 8:29 PM EDT) Anatomical Region Laterality Modality [place] Computed Tomogr aphy Impressions 05/04/2025 [...] Total DLP (Dose-Length Product): 8059.25 mGy.cm (accession [id number]), 8059.25 mGy.cm (accession [id number]), 8059.25 mGy.cm (accession [id number]), 8059.25 mGy.cm (accession [id number]). Please note: The reported value represents the [...] Total DLP (Dose-Length Product): 8059.25 mGy.cm (accession [id number]),8059.25 mGy.cm (accession [id number]), 8059.25 mGy.cm (accession [id number]),8059.25 mGy.cm (accession [id number]). Please note: The reported valuerepresents the total [...] Reactive Non Reactive 05/04/2025 9:26 PM EDT [facility] Comment:Screening for HIV 1 & 2 antibodies, and P24 antigen is NONREACTIVE. No confirmatory testing is required. Blood Venous blood specimen / Unknown Venipuncture / Unknown 05/04/2025 8:10 PM EDT 05/04/2025 8:42 PM EDT us Gauri Hall MD LAB BLOOD ORDERABLES Final Resu lt Performing Organization Address City/[facility]/ZIP Co de Phone Number [facility] [address] [place] [address] * Type and Screen (05/04/2025 8:10 PM [...] TEST ORDERABLES Final Result Performing Organization Address City/[facility]/ZIP Co de Phone Number BLOOD BANK [address] [place] [address], * Ethyl Alcohol Plasma (05/04/2025 8:10 PM EDT) Ethanol Plasma <10 <10 mg/dL 05/04/2025 8:33 PM EDT [facility] Blood Venous blood specimen / Unknown Venipuncture / Unknown 05/04/2025 8:10 PM EDT 05/04/2025 8:14 PM EDT Narrative [facility] - 05/04/2025 8:33 PM EDT Enzymatic Assay: Performed on [employer]. Gauri Hall MD LAB BLOOD ORDERABLES Final Resu lt Performing Organization Address City/[facility]/ZIP Co de Phone Number [facility] [address] [place] [address] * APTT (PTT) (05/04/2025 8:10 PM EDT) aPTT 25 25 - 35 sec 05/04/2025 8:28 PM EDT [facility] Blood Venous blood specimen / Unknown Venipuncture / Unknown 05/04/2025 8:10 PM EDT 05/04/2025 8:14 PM EDT Gauri Hall MD LAB BLOOD ORDERABLES Final Resu lt Performing Organization Address City/[facility]/ZIP Co de Phone Number [facility] [address] [place] [address] * PT-INR (05/04/2025 8:10 PM EDT) Prothrombin Time 13.3 12.0 - 14.3 sec 05/04/2025 8:27 PM EDT [facility] INR 1.0 0.9 - 1.1 05/04/2025 8:27 PM EDT [facility] Blood Venous blood specimen / Unknown Venipuncture / Unknown 05/04/2025 8:10 PM EDT 05/04/2025 8:14 PM EDT Narrative [facility] - 05/04/2025 8:27 PM EDT OPTIMAL INR RANGES FOR PATIENT ON ORAL ANTICOAGULANT THERAPY Prevention of venous thromboembolism INR 2.0 to 3.0 In patients with heart disease: Atrial fibrillation INR 2.0 to 3.0 Valvular heart disease INR 2.0 to 3.0 Tissue heart valves INR 2.0 to 3.0 Mechanical prosthetic valves INR 2.5 to 3.5 Prevention of recurrent ME INR 2.5 to 3.5 us Gauri Hall MD LAB BLOOD ORDERABLES Final Resu lt [facility] [address] [place] [address] * (ABNORMAL) CBC w/o diff (05/04/2025 8:10 PM EDT) WBC Count 21.18(H) 3.70 - 10.30 10*3/uL LAB HEMATOLOGY METHOD 05/04/2025 8:18 PM EDT [facility] RBC Count 5.49 4.60 - 6.10 10*6/uL LAB HEMATOLOGY METHOD 05/04/2025 8:18 PM EDT [facility] HGB 15.7 13.7 - 17.5 g/dL LAB HEMATOLOGY METHOD 05/04/2025 8:18 PM EDT [facility] HCT 43.6 40.0 - 51.0 % LAB HEMATOLOGY METHOD 05/04/2025 8:18 PM EDT [facility] Platelet Count 313 155 - 369 10*3/uL LAB HEMATOLOGY METHOD 05/04/2025 8:18 PM EDT [facility] MCV 79 79 - 98 fL LAB HEMATOLOGY METHOD 05/04/2025 8:18 PM EDT [facility] MCH 28.6 26.0 - 32.0 pg LAB HEMATOLOGY METHOD 05/04/2025 8:18 PM EDT [facility] MCHC 36.0(H) 30.7 - 35.5 g/dL LAB HEMATOLOGY METHOD 05/04/2025 8:18 PM EDT [facility] RDW 12.3 11.5 - 14.5 % LAB HEMATOLOGY METHOD 05/04/2025 8:18 PM EDT [facility] MPV 10.2 8.8 - 12.5 fL LAB HEMATOLOGY METHOD 05/04/2025 8:18 PM EDT [facility] nRBC 0.0 <=0.0 per 100 WBCs LAB HEMATOLOGY METHOD 05/04/2025 8:18 PM EDT [facility] Blood Venous blood specimen / Unknown Venipuncture / Unknown 05/04/2025 8:10 PM EDT 05/04/2025 8:14 PM EDT us Gauri Hall MD LAB BLOOD ORDERABLES Final Resu lt [facility] [address] [place] [address] * (ABNORMAL) CMP (05/04/2025 8:10 PM EDT) Glucose, Plasma 120(H) 74 - 99 mg/dL 05/04/2025 8:41 PM EDT [facility] BUN, Plasma 13 7 - 21 mg/dL 05/04/2025 8:41 PM EDT [facility] Creatinine, Plasma 1.00 0.70 - 1.20 mg/dL 05/04/2025 8:41 PM EDT [facility] BUN/Creatinine Ratio 13 05/04/2025 8:41 PM EDT [facility] Sodium, Plasma 140 136 - 145 mmol/L 05/04/2025 8:41 PM EDT [facility] Potassium, Plasma 3.7 3.6 - 4.9 mmol/L 05/04/2025 8:41 PM EDT [facility] Chloride, Plasma 104 97 - 107 mmol/L 05/04/2025 8:41 PM EDT [facility] CO2, Plasma 21(L) 22 - 29 mmol/L 05/04/2025 8:41 PM EDT [facility] Anion Gap 15 6 - 16 mmol/L 05/04/2025 8:41 PM EDT [facility] Total Calcium, Plasma 9.1 8.9 - 10.2 mg/dL 05/04/2025 8:41 PM EDT [facility] Total Protein 7.6 6.3 - 7.9 g/dL 05/04/2025 8:41 PM EDT [facility] Albumin, Plasma 4.5 3.5 - 5.2 g/dL 05/04/2025 8:41 PM EDT [facility] AST, Plasma 121(H) 10 - 50 U/L 05/04/2025 8:41 PM EDT [facility] ALT, Plasma 191(H) 10 - 50 U/L 05/04/2025 8:41 PM EDT [facility] Alkaline Phosphatase, Plasma 59 40 - 115 U/L 05/04/2025 8:41 PM EDT [facility] Total Bilirubin, Plasma 0.6 0.2 - 1.1 mg/dL 05/04/2025 8:41 PM EDT [facility] eGFRcr 111.2 mL/min/1.7 3m*2 05/04/2025 8:41 PM EDT [facility] Comment:Reported eGFRcr in m L/min/1.73m2 is based the CKD-EPI 2020 equation that does not use a race coefficient. Blood Venous blood specimen / Unknown Venipuncture / Unknown 05/04/2025 8:10 PM EDT 05/04/2025 8:14 PM EDT us Gauri Hall MD LAB BLOOD ORDERABLES Final Resu lt [facility] [address] [place] [address] * (ABNORMAL) Trauma shock panel blood gas (05/04/2025 8:10 PM EDT) pH, Venous 7.47(H) 7.32 - 7.43 LAB HEMATOLOGY METHOD 05/04/2025 8:16 PM EDT [facility] Bicarbonate, Calculated, Venous 24 22 - 26 mmol/L LAB HEMATOLOGY METHOD 05/04/2025 8:16 PM EDT [facility] Base Excess, Venous 0.7 -2.0 - 3.0 mmol/L LAB HEMATOLOGY METHOD 05/04/2025 8:16 PM EDT [facility] Lactate, Venous, Whole Blood 2.4(H) 0.5 - 2.2 mmol/L LAB HEMATOLOGY METHOD 05/04/2025 8:16 PM EDT [facility] Blood Venous blood specimen / Unknown Venipuncture / Unknown 05/04/2025 8:10 PM EDT 05/04/2025 8:15 PM EDT Gauri Hall MD LAB BLOOD ORDERABLES Final Resu lt [facility] [address] [place] [address] * XR Pelvis 1 or 2 Views [...] Retroperitoneal hematoma Unspecified hemorrhage Kidney laceration, left Closed displaced comminuted fracture of shaft of left femur, initial encounter Left leg pain- Primary Pain in soft [...] Given 05/07/2025 12:17 AM EDT 1,000 mg cetirizine (ZyrTEC) tablet 10 mg 10 mg, Oral, Nightly, First dose on Sun05/05/25 at 2245, Until Discontinued, Routine Given 05/06/2025 8:48 PM EDT 10 mg Given 05/05/2025 10:05 PM EDT 10 mg enoxaparin (Lovenox) syringe 60 mg 60 mg, Subcutaneous, 2 times daily, First dose on Sun05/05/25 at 2100, Until Discontinued, Routine Given 05/07/2025 8:22 AM EDT 60 mg Left Lower Abdomen Given 05/06/2025 8:48 PM EDT 60 mg Le ft Lower Abdomen Given 05/06/2025 8:32 AM EDT 60 mg Ot her lidocaine (Lidoderm) 5 % patch 1 patch [...] 8:32 AM EDT 1 Application ondansetron (Zofran) injection 4 mg 4 mg, [...] on Sun05/07/25 at 2100, Until Discontinued, Routine senna-docusate (Lara-Colace) 8.6-50 MG per tablet 2 [...] Until Sun05/07/25 at 1629, Routine, line care documented in this encounter Active and Recently [...] in procedure)1043 (MAR Unhold - Provider: Mariah Hernandez RN)1158 (Not Given - Provider: Mariah Hernandez RN [...] Antonio Benz RN)1204 (Given - Provider: Fiorella Carlos RN) ceFAZolin (Ancef) injection 2 g (CANCELED) 2 g, Intravenous, Every 8 hours, First dose on Sun05/05/25 at 0400, Until Discontinued, Routine, Sign 0529 (Given - Provider: Leda Ji RN)1200 (Canceled Entry - Provider: Nathalie Jennings, AYE)2038 (Given - Provider: Carmen Nelson) 0349 (Given [...] on Sun05/05/25 at 2245, Until Discontinued, Routine 2204 (Given - Provider: Carmen Nelson) 2047 (Given - Provider: Juan Antonio Benz RN) enoxaparin (Lovenox) syringe 60 mg 60 mg, Subcutaneous, 2 times daily, First dose on Sun05/05/25 at 2100, Until Discontinued, Routine 2038 (Given - Provider: Carmen Nelson) 0832 (Given - Provider: Nathalie Jennings RN)204 (Given - Provider: Juan Antonio Benz RN) 0822 (Given - Provider: Fiorella Carlos RN) ketamine (Ketalar) injection 40 mg (COMPLETED) 40 [...] refused) 0823 (Medication Applied - Provider: Fiorella Carlos, AYE - Comment: left leg)1429 (Due: Medication Removed [...] Provider: Carmen Nelson)1255 (Given - Provider: Nathalie Jennings RN)1835 (Given [...] Provider)1346 (MAR Unhold - Provider: Automatic Transfer Provider)2029 (Not Given - Provider: Carmen Nelson - Reason: Patient/family refused) 0832 (Given - Provider: Nathalie Jennings RN)2047 (Given - Provider: Juan Antonio Benz RN) 0823 (Given - Provider: Fiorella Carlos, AYE) polyethylene glycol (Miralax) packet 17 g (CANCELED) 17 g, Oral, Daily, First dose on Sun05/06/25 at 0900, Until Discontinued, Routine 0831 (Given - Provider: Nathalie Jennings RN) 0823 (Given - Provider: Fiorella Carlos, [...] on Sun05/05/25 at 2100, Until Discontinued, Routine 2029 (Not Given - Provider: Carmen Nelson - Reason: Patient/family refused) 0832 (Given - Provider: Nathalie Jennings RN)2047 (Given - Provider: Juan Antonio Benz RN) 0822 (Given - Provider: Fiorella Carlos RN) sodium chloride 0.9 % flush 10 mL(Linked Group 1) 10 mL, Intravenous, Every 12 hours, First dose on Sun05/05/25 at 0210, Until Discontinued, Routine 0223 (Given - Provider: Velma Mascorro RN)0543 (NOV Hold - Provider: Automatic Transfer Provider - Reason: Patient in procedure)1346 (NOV Unhold - Provider: Automatic Transfer Provider)1404 (Given - Provider: Nathalie Jennings RN) 0115 (Given - Provider: Carmen Nelson)1311 (Given - Provider: Nathalie N Michaela, RN) 0412 (Given - Provider: Juan Antonio [...] refractory to oxycodone 1000 (Given - Provider: Nathalie Jennings, AYE) ondansetron (Zofran) injection 4 mg(Linked Group 3) 4 mg, Intravenous, Every 6 hours PRN, Starting on Sun05/05/25 at 0205, Until Sun05/07/25 at 1629, Routine, vomiting, nausea 0543 (MAR Hold - Provider: Automatic Transfer Provider - Reason: Patient in procedure)1346 (MAR Unhold - Provider: Automatic Transfer Provider)1742 (Given - Provider: Nathalie Jennings RN) ondansetron ODT (Zofran-ODT) disintegrating tablet 4 mg(Linked Group 3) 4 mg, Oral, Every 6 hours PRN, Starting on Sun05/05/25 at 0205, Until Sun05/07/25 at 1629, Routine, nausea, vomiting 0543 (MAR Hold - Provider: Automatic Transfer Provider - Reason: Patient in procedure)1346 (MAR Unhold - Provider: Automatic Transfer Provider)1742 (See Alternative - Provider: Nathalie Jennings RN) oxyCODONE (Roxicodone) immediate release tablet 10 mg [...] Carmen Nelson)0903 (See Alternative - Provider: Nathalie Jennings RN)1303 (Given - Provider: Nathalie Jennings RN)1835 (Given - Provider: Lelo Duarte RN) 0416 (Given - Provider: Juan Antonio Benz RN)0822 (Given - Provider: Fiorella Carlos, AYE)1341 (See Alternative - Provider: Fiorella Carlos, AYE) oxyCODONE (Roxicodone) immediate release tablet 5 mg (CANCELED) 5 mg, Oral, Every 4 hours PRN, Starting on Sun05/05/25 at 0205, Until Sun05/05/25 at 1101, Routine, severe pain 0528 (Given - Provider: Leda Ji RN)0543 (MAR Hold - Provider: Automatic Transfer Provider - Reason: Patient in procedure)1101 (MAR Unhold - Provider: Marcia Capone, PharmD) oxyCODONE (Roxicodone) immediate release tablet 5 mg(Linked Group 5) 5 mg, Oral, Every 4 hours PRN, Starting on Sun05/05/25 at 1100, Until Sun05/07/25 at 1629, Routine, moderate pain 2312 (See Alternative - Provider: Carmen Nelson) 0359 (Given - Provider: Carmen Nelson)0903 (Given - Provider: Nathalie Jennings RN)1303 (See Alternative - Provider: Nathalie Jennings RN)1835 (See Alternative - Provider: Lelo Duarte RN) [...] Sun05/07/25 at 1629, Routine, line care 0543 (MAR Hold - Provider: Automatic Transfer Provider - Reason: Patient in procedure)1346 (NOV Unhold - Provider: Automatic Transfer Provider) No [...] at 1749 1749 (Given - Provider: Nathalie Jennings RN) Linked Groups Order Group 1: Insert peripheral [...] needed, Starting on Sun05/05/25 at 0203, Until [facility] 05/07/25 at 1629, Routine, line care Group 2: [...] documented as of this encounter Care Teams English Composition Teacher Relationship Specialty Start Date End Date Milo Schaefer DO [address] [place] [address] PCP - General 05/16/24 documented as of this encounter"
--- OUTSIDE RECORDS SUMMARY | 2025-05-25 10:50 | XMS_ITS | Encounter Summary ---
Author Organization Healthcare Address [address] [place] [address] Care Team Providers Care Chief Of Service Name Role Phone SilvanoMilo Primary Care Provider [phone] Reason for Visit * Reason Comments Follow-up Encounter Details Date Type Department Care Team (Late st Contact Info) Description 05/25/2025 10:50 AM EDT Office Visit [facility] Surgery [facility] [address], [address] [place] [address] Nilam Raman, [place] [address] [place] [address] Other closed fracture of left femur, unspecified portion of femur, initial encounter (Primary Dx) Social History Tobacco Use Types Packs/Day Years [...] any time in the past 12 m [facility], were you homeless or living in a snf (including now)? No 05/06/2025 Utilities Answer Date Recorded In the past 12 months has th e [employer], gas, oil, or water company threatened to [...] Sign Reading Time Taken Comments Blood Pressure 106/64 05/25/2025 11:15 AM EDT Pulse 89 05/25/2025 11:15 AM EDT Temperature 36.7 C (98.1 F) 05/25/2025 11:15 AM EDT Respiratory Rate - - Oxygen Saturation 96% 05/25/2025 11:15 AM EDT Inhaled Oxygen Concentration - - Weight 136 kg (300 lb) 05/25/2025 11:15 AM EDT Height 175.3 cm (5' 9 ) 05/25/2025 11:15 AM EDT Body Mass Index 44.3 05/25/2025 11:15 AM EDT documented in this encounter Miscellaneous Notes * Progress Notes - Nilam Raman PA - 05/25/2025 10:50 AM EDT Chief Complaint: Left femur IMN (DOS: 05/05/2025, Tin) HPI: Jeremy Lagunas is a 19 y.o. male who presents to clinic for postoperative follow up s/p the above stated procedure. He has been weight-bearing as tolerated left lower extremity has been ambulating with a walker at home. States he has intermittent pain about the left femur. States he is continuing to strengthen his left lower extremity. He is eager return back to work. He works as a welder repair. Denies fevers, chills, nausea, vomiting. Denies any numbness, tingling. Denies any further trauma or injury. Focused MSK Exam: Left lower extremity: Inspection: Well-healed surgical incisions with sutures in place. No erythema, ecchymosis, edema Laceration about the anterior knee with sutures in place, no erythema or drainage noted Motor: Fires KF/KE/EHL/FHL/GSC/TA Sensation: SILT s/s/sp/dp/t Vascular: WWP XRAY: No new images Assessment: 19 y.o. male who presents s/p left femur IMN, knee laceration. Patient is doing okay. 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 Meghan Raman PA-C Department of Orthopaedic Surgery and Sports Medicine documented in this encounter Plan of Treatment Upcoming Encounters Date Type Department Care Team (Late st Contact Info) Description 07/03/2025 3:00 PM EDT Office Visit [facility] [address], [address] [place] [address] Phoenix Lion MD [address] [place] [address] documented as of this encounter Visit Diagnoses Diagnosis Other closed fracture of left femur, unspecified portion of femur, initial encounter- Primary Left leg pain- Primary Pain in soft tissues of limb documented in this encounter Additional Health Concerns Assessment Noted Time A fall risk assessment has been complete d for the patient 05/25/2025 11:15 AM EDT A Body Mass Index follow-up plan has been documented for the patient 05/25/2025 12:07 PM EDT documented as of this encounter Care Teams Chief Of Service Relationship Specialty Start Date End Date Milo Schaefer DO [address] [place] [address] PCP - General 05/16/24 documented as of this encounter
[2025-06-26 20:56] LABS: Hematocrit 47.1 % (42.0-52.0); Hemoglobin 15.6 g/dL (14.1-18.0); Immature Granulocytes % 0.5 %; Mean Corpuscular HGB Conc 33.1 g/dL (31.8-35.4); Mean Corpuscular Hemoglobin 27.3 pg (27.0-31.2); Mean Corpuscular Volume 82.5 fl (80-94); Nucleated Red Blood Cells % 0 %; Platelet Count 305 K/mm3 (142-424); Red Blood Count 5.71 M/mm3 (4.60-6.20); Red Cell Distribution Width-SD 36.9 fL; White Blood Count 7.9 K/mm3 (4.5-13.0)
[2025-06-26 21:44] LABS: Alanine Aminotransferase 72 U/L (12-78); Albumin Level 4.4 g/dl (3.5-5.0); Albumin/Globulin Ratio 1.5 (1.1-1.8); Alkaline Phosphatase 174 U/L (38-126); Anion Gap 17.3 mEq/L (5-15); Aspartate Amino Transferase 27 U/L (17-59); Bilirubin,Total 0.6 mg/dl (0.2-1.3); Blood Urea Nitrogen 16 mg/dl (9-20); Calcium 9.4 mg/dl (8.4-10.2); Carbon Dioxide 24 mmol/L (22.0-30.0); Chloride 102 mmol/L (98-107); Creatinine,Serum 1.00 mg/dl (0.66-1.25); Estimated Glomerular Filt Rate 96 ml/min (>60); GFR (African American) 116 ML/MIN (>60); Globulin 3.0 g/dL (1.3-3.2); Glucose 118 mg/dl (74-100); Potassium 4.3 mmoL/L (3.5-5.1); Sodium 139 mmol/L (136-145); Total Protein,Serum 7.4 g/dl (6.3-8.2)
[2025-06-26 21:58] LABS: 25-OH Vitamin D, Total 20.6 ng/mL (30-100)
--- OUTSIDE RECORDS SUMMARY | 2025-06-29 10:16 | XMS_ITS | Encounter Summary ---
Author Organization Healthcare Address [address] [place] [address] Care Team Providers Care Registration Manager Name Role Phone TarunMilo villasenor Primary Care Provider [phone] Encounter Details Date Type Department Care Team (Latest Contact Info) Description 05/08/2025 Travel Social History Tobacco Use Types Packs/Day Years [...] any time in the past 12 m [facility], were you homeless or living in a long term (including now)? No 05/06/2025 Utilities Answer Date [...] on file documented as of this encounter Plan of Treatment Upcoming Encounters Date Type Department Care Team (Late st Contact Info) Description 07/03/2025 3:00 PM EDT Office Visit [facility] Surgery [facility] Medicine [address], [address] [place] [address] Phoenix Lion MD [address] [place] [address] documented as of this encounter Visit Diagnoses Not on filedocumented in this encounter Additional Health Concerns Assessment Noted Time A Body Mass Index follow-up plan has been documented for the patient 05/07/2025 12:16 PM EDT documented as of this encounter Care Teams Registration Manager Relationship Specialty Start Date End Date Milo Schaefer DO [address] [place] [address] PCP - General 05/16/24 documented as of this encounter
--- OUTSIDE RECORDS SUMMARY | 2025-06-29 10:17 | XMS_ITS | Encounter Summary ---
Author Organization Healthcare Address [address] [place] [address] Care Team Providers Care Receptionist Nurse Name Role Phone TarunMilo villasenor Primary Care Provider [phone] Encounter Details Date Type Department Care Team (Latest Contact Info) Description 05/05/2025 Travel Social History Tobacco Use Types Packs/Day [...] any time in the past 12 m [facility], were you homeless or living in a retirement (including now)? No 05/06/2025 Utilities Answer Date [...] on file documented as of this encounter Functional Status * AUDIT-C Score Answer Date of Assessment Author 0 05/05/2025 8:55 PM Carmen Maxwell * Question Answer Date of Assessment Author Q1: How often do you have a drink containing alcohol? Never 05/05/2025 8:55 PM Carmen Maxwell Q2: How many drinks containing alcohol do you have on a typical day when you are drinking? Patient does not drink 05/05/2025 8:55 PM Carmen Maxwell Q3: How often do you have six or more drinks on one occasion? Never 05/05/2025 8:55 PM Carmen Maxwell * Calculated C-SSRS Risk Score (Lifetime/Recent) Answer Date of Assessment Author No Risk Indicated 05/05/2025 8:00 PM EDT Carmen Nelson * Question Answer Date of Assessment Author 1. Wish to be (Past 1 Month) No 025 8:00 PM EDT Carmen Nelson 2. Non-Specific Active Suici carlos Thoughts (Past 1 Month) No 05/05/2025 8:00 PM EDT Mirian Nelson na 6. Suicidal Behavior (Lifetime) No 8:00 PM EDT Carmen Nelson documented as of this encounter Plan of Treatment Upcoming Encounters Date Type Department Care Team (Late st Contact Info) Description 07/03/2025 3:00 PM EDT Office Visit [facility] Orthopaedic Surgery & Sports Medicine [address], [address] [place] [address] Phoenix Lion MD [address] [place] [address] documented as of this encounter Visit Diagnoses Not on filedocumented in this encounter Additional Health Concerns Assessment Noted Time A Body Mass Index follow-up plan has been documented for the patient 05/07/2025 12:16 PM EDT documented as of this encounter Care Teams Receptionist Nurse Relationship Specialty Start Date End Date Milo Schaefer DO [address] [place] [address] PCP - General 05/16/24 documented as of this encounter
--- OUTSIDE RECORDS SUMMARY | 2025-06-29 10:17 | XMS_ITS | Encounter Summary ---
Author Organization Healthcare Address [address] [place] [address] Care Team Providers Care Hat Steamer Name Role Phone Milo Schaefer Primary Care Provider [phone] Encounter Details Date Type Department Care Team (Latest Contact Info) Description 05/04/2025 Travel Social History Tobacco Use Types Packs/Day Years Used Date Smoking Tobacco: Never Assessed AUDIT-C Answer Date Recorded Q1: How often do you have a drink containing alcohol? Never 05/05/2025 Q2: How many drinks containi ng alcohol do you have on a typical day when you are drinking? Patient does not drink Q3: How often do you have si x or more drinks on one occasion? Never 05/05/2025 PHQ-2A Answer Date Recorded Depression Risk 1 07/08/2024 PHQ-9A Answer Date Recorded Depression Risk Score 9 07/08/2024 Sex and Gender Information Value Date Recorded Sex Assigned at Not on file Legal Sex Male 10:14 AM EDT Gender Identity Not on file Sexual Orientation Not on file documented as of this encounter Functional Status * Calculated C-SSRS Risk Score (Lifetime/Recent) Answer Date of Assessment Author No Risk Indicated 05/04/2025 8:50 PM EDT Velma Gerber RN * Question Answer Date of Assessment Author 1. Wish to be (Past 1 Month) No 05/04/2025 8:50 PM CÉSART Stu Mascorro RN 2. Non-Specific Active Suicidal Thoughts (Past 1 Month) No 05/04/2025 8:50 PM EDT Stu Mascorro, RN 6. Suicidal Behavior (Lifetime) No 05/04/2025 8:50 PM EDT Stu Mascorro RN documented as of this encounter Plan of Treatment Upcoming Encounters Date Type Department Care Team (Late st Contact Info) Description 07/03/2025 3:00 PM EDT Office Visit [facility] Orthopaedic Surgery & Sports Medicine [address], [address] [place] [address] Phoenix Lion MD [address] [place] [address] documented as of this encounter Visit Diagnoses Not on filedocumented in this encounter Additional Health Concerns Assessment Noted Time A Body Mass Index follow-up plan has been documented for the patient 05/07/2025 12:16 PM EDT documented as of this encounter Care Teams Hat Steamer Relationship Specialty Start Date End Date Milo Schaefer DO [address] [place] [address] PCP - General 05/16/24 documented as of this encounter
--- OUTSIDE RECORDS SUMMARY | 2025-06-29 10:18 | XMS_ITS | Encounter Summary ---
Author Organization Healthcare Address [address] [place] [address] Care Team Providers Care Rifle Case Repairer Name Role Phone TarunMilo villasenor Primary Care Provider [phone] Encounter Details Date Type Department Care Team (Latest Contact Info) Description 05/25/2025 Travel Social History Tobacco Use Types Packs/Day [...] were you homeless or living in a senior care (including now)? No 05/06/2025 Utilities Answer Date [...] Description 07/03/2025 3:00 PM EDT Office Visit [facility] Orthopaedic Surgery [facility] Medicine [address], [address] [place] [address] Phoenix Lion MD [address] [place] [address] documented as of this encounter Visit Diagnoses Not on filedocumented in this encounter Additional Health Concerns Assessment Noted Time A fall risk assessment has been complete d for the patient 05/25/2025 11:15 AM EDT A Body Mass Index follow-up plan has been documented for the patient 05/25/2025 12:07 PM EDT documented as of this encounter Care Teams Rifle Case Repairer Relationship Specialty Start Date End Date Milo Schaefer DO [address] [place] [id number] PCP - General 05/16/24 documented as of this encounter
--- OUTSIDE RECORDS SUMMARY | 2025-06-29 10:18 | XMS_ITS | Clinical Summary ---
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 URINALYSIS - AUTOMATED METHOD 05/04/2025 9:22 PM EDT [facility] Urobilinogen, Urine 1.0 0.2 to 1.0 mg/dL LAB URINALYSIS - AUTOMATED METHOD 05/04/2025 9:22 PM EDT [facility] Leukocytes, Urine Negative Negative LAB URINALYSIS - AUTOMATED METHOD 05/04/2025 9:22 PM EDT [facility] Nitrite, Urine Negative Negative LAB URINALYSIS - AUTOMATED METHOD 05/04/2025 9:22 PM EDT [facility] RBC, Urine 31 - 50(A) 0 to 3 /HPF LAB URINALYSIS - AUTOMATED METHOD 05/04/2025 9:22 PM EDT [facility] Comment:This result was prev iously suppressed from the chart. WBC, Urine 0 - 5 0 to 5 /HPF LAB URINALYSIS - AUTOMATED METHOD 05/04/2025 9:22 PM EDT [facility] Comment:This result was prev iously suppressed from the chart. Squamous Epithelial Cells 0 - 2 0 to 5 /HPF LAB URINALYSIS - AUTOMATED METHOD 05/04/2025 9:22 PM EDT [facility] Comment:This result was prev iously suppressed from the chart. Hyaline Casts 11 - 20(A) 0 to 5 /LPF LAB URINALYSIS - AUTOMATED METHOD 05/04/2025 9:22 PM EDT [facility] Comment:This result was prev iously suppressed from the chart. Bacteria, Urine Negative Negative LAB URINALYSIS - AUTOMATED METHOD 05/04/2025 9:22 PM EDT [facility] Comment:This result was prev iously suppressed from the chart. Amorphous Crystals Present Absent LAB URINALYSIS - AUTOMATED METHOD 05/04/2025 9:22 PM EDT [facility] Comment:This result was prev iously suppressed from the chart. Mucus Present LAB URINALYSIS - AUTOMATED METHOD 05/04/2025 9:22 PM EDT [facility] Comment:This result was prev iously suppressed from the chart. Urine Urine specimen obtained by clean catch procedure / Unknown Non-blood Collection / Unknown 05/04/2025 8:48 PM EDT 05/04/2025 8:50 PM EDT us Kevin Hall MD LAB URINE ORDERABLES Final Resu lt [facility] [address] [place] [address] * Hepatitis C Antibody - ED (05/04/2025 8:36 PM EDT) Hepatitis C Antibody Negative Negative 05/04/2025 9:25 PM EDT [facility] Blood Venous blood specimen / Unknown Venipuncture / Unknown 05/04/2025 8:36 PM EDT 05/04/2025 8:43 PM EDT us Kevin Hall MD LAB BLOOD ORDERABLES Final Resu lt [facility] [address] [place] [address] * CT Bony Pelvis (05/04/2025 8:29 PM [...] service by Dr. Monroe via telephone at [phone] on 05/05/2025. Preliminary report signed by Rad [...] Limited evaluation of the vertebral bodies especially C6-W2pevecttty to photon starvation. No acute fracture. Discs: [...] service by Dr. Monroe via telephone at [phone] on 05/05/2025. Preliminary report signed by Rad Monroe MD on 05/04/2025 11:25 PM By electronically signing this report, I, the attending physician, attestthat I have personally reviewed the images/data for the aboveexamination(s) and agree with the final edited report. Drafted by Rad Monroe MD on 05/04/2025 10:06 PM Final report signed by Nakia Jimenez MD on 05/05/2025 12:16 AM us Kevin Hall MD IMG CT PROCEDURES Final Result * CT Angio Abdomen Pelvis w Runoff [...] service by Dr. Monroe via telephone at [phone] on 05/05/2025. Preliminary report signed by Rad [...] Limited evaluation of the vertebral bodies especially C6-B0omgikxvls to photon starvation. No acute fracture. Discs: [...] service by Dr. Monroe via telephone at [phone] on 05/05/2025. Preliminary report signed by Rad [...] service by Dr. Monroe via telephone at [phone] on 05/05/2025. Preliminary report signed by Rad [...] Limited evaluation of the vertebral bodies especially C6-W7defqffiuq to photon starvation. No acute fracture. Discs: [...] service by Dr. Monroe via telephone at 0786 on 05/05/2025. Preliminary report signed by Rad Monroe MD on 05/04/2025 11:25 PM By electronically signing this report, I, the attending physician, attestthat I have personally reviewed the images/data for the aboveexamination(s) and agree with the final edited report. Drafted by Rad Monroe MD on 05/04/2025 10:06 PM Final report signed by Nakia Jimenez MD on 05/05/2025 12:16 AM Kevin Hall MD IMG CT PROCEDURES Final Result [...] service by Dr. Monroe via telephone at [phone] on 05/05/2025. Preliminary report signed by Rad [...] Limited evaluation of the vertebral bodies especially C6-I5pwqzcachw to photon starvation. No acute fracture. Discs: [...] service by Dr. Monroe via telephone at [phone] on 05/05/2025. Preliminary report signed by Rad Monroe MD on 05/04/2025 11:25 PM By electronically signing this report, I, the attending physician, attestthat I have personally reviewed the images/data for the aboveexamination(s) and agree with the final edited report. Drafted by Rad Monroe MD on 05/04/2025 10:06 PM Final report signed by Nakia Jimenez MD on 05/05/2025 12:16 AM us Kevin Hall MD IMG CT PROCEDURES Final Result [...] service by Dr. Monroe via telephone at [phone] on 05/05/2025. Preliminary report signed by Rad [...] Limited evaluation of the vertebral bodies especially C6-W9klhtulltb to photon starvation. No acute fracture. Discs: [...] service by Dr. Monroe via telephone at [phone] on 05/05/2025. Preliminary report signed by Rad Monroe MD on 05/04/2025 11:25 PM By electronically signing this report, I, the attending physician, attestthat I have personally reviewed the images/data for the aboveexamination(s) and agree with the final edited report. Drafted by Rad Monroe MD on 05/04/2025 10:06 PM Final report signed by Nakia Jimenez MD on 05/05/2025 12:16 AM us Kevin Hall MD IMG CT PROCEDURES Final Result [...] service by Dr. Monroe via telephone at [phone] on 05/05/2025. Preliminary report signed by Rad [...] Limited evaluation of the vertebral bodies especially C6-M1zrlinszfv to photon starvation. No acute fracture. Discs: [...] service by Dr. Monroe via telephone at [phone] on 05/05/2025. Preliminary report signed by Rad Monroe MD on 05/04/2025 11:25 PM By electronically signing this report, I, the attending physician, attestthat I have personally reviewed the images/data for the aboveexamination(s) and agree with the final edited report. Drafted by Rad Monroe MD on 05/04/2025 10:06 PM Final report signed by Nakia Jimenez MD on 05/05/2025 12:16 AM us Kevin Hall MD IMG CT PROCEDURES Final Result [...] Total DLP (Dose-Length Product): 8059.25 mGy.cm (accession [id number]), 8059.25 mGy.cm (accession [id number]), 8059.25 mGy.cm (accession [id number]), 8059.25 mGy.cm (accession [id number]). Please note: The reported value represents the [...] Total DLP (Dose-Length Product): 8059.25 mGy.cm (accession [id number]),8059.25 mGy.cm (accession [id number]), 8059.25 mGy.cm (accession [id number]),8059.25 mGy.cm (accession [id number]). Please note: The reported valuerepresents the total [...] Alec Augustin MD on 05/04/2025 9:24 PM Kevin Hall MD IMG CT PROCEDURES Final Result [...] Total DLP (Dose-Length Product): 8059.25 mGy.cm (accession [id number]), 8059.25 mGy.cm (accession [id number]), 8059.25 mGy.cm (accession [id number]), 8059.25 mGy.cm (accession [id number]). Please note: The reported value represents the [...] Total DLP (Dose-Length Product): 8059.25 mGy.cm (accession [id number]),8059.25 mGy.cm (accession [id number]), 8059.25 mGy.cm (accession [id number]),8059.25 mGy.cm (accession [id number]). Please note: The reported valuerepresents the total [...] Augustin MD on 05/04/2025 9:24 PM us Kevin Hall MD IMG CT PROCEDURES Final Result [...] Total DLP (Dose-Length Product): 8059.25 mGy.cm (accession [id number]), 8059.25 mGy.cm (accession [id number]), 8059.25 mGy.cm (accession [id number]), 8059.25 mGy.cm (accession [id number]). Please note: The reported value represents the [...] Total DLP (Dose-Length Product): 8059.25 mGy.cm (accession [id number]),8059.25 mGy.cm (accession [id number]), 8059.25 mGy.cm (accession [id number]),8059.25 mGy.cm (accession [id number]). Please note: The reported valuerepresents the total [...] Alec Augustin MD on 05/04/2025 9:24 PM Kevin Hall MD IMG CT PROCEDURES Final Result * CT Angio Head (05/04/2025 8:29 PM EDT) Anatomical Region Laterality Modality [place] Computed Tomogr aphy Impressions 05/04/2025 [...] Total DLP (Dose-Length Product): 8059.25 mGy.cm (accession [id number]), 8059.25 mGy.cm (accession [id number]), 8059.25 mGy.cm (accession [id number]), 8059.25 mGy.cm (accession [id number]). Please note: The reported value represents the [...] Total DLP (Dose-Length Product): 8059.25 mGy.cm (accession [id number]),8059.25 mGy.cm (accession [id number]), 8059.25 mGy.cm (accession [id number]),8059.25 mGy.cm (accession [id number]). Please note: The reported valuerepresents the total [...] Alec Augustin MD on 05/04/2025 9:24 PM Kevin Hall MD IMG CT PROCEDURES Final Result * ED HIV 1/2 Antibody/Antigen Screen w/Reflex to HIV 1/2 Differentiation (05/04/2025 8:10 PM EDT) HIV 1 & 2 Antibody/Antigen Screen Non Reactive Non Reactive 05/04/2025 9:26 PM EDT [facility] Comment:Screening for HIV 1 & 2 antibodies, and P24 antigen is NONREACTIVE. No confirmatory testing is required. Blood Venous blood specimen / Unknown Venipuncture / Unknown 05/04/2025 8:10 PM EDT 05/04/2025 8:42 PM EDT Kevin Hall MD LAB BLOOD ORDERABLES Final Resu lt [facility] [address] [place] [address] * (ABNORMAL) Trauma shock panel blood gas (05/04/2025 8:10 PM EDT) pH, Venous 7.47(H) 7.32 - 7.43 LAB HEMATOLOGY METHOD 05/04/2025 8:16 PM EDT [facility] Bicarbonate, Calculated, Venous 24 22 - 26 mmol/L LAB HEMATOLOGY METHOD 05/04/2025 8:16 PM EDT [facility] Base Excess, Venous 0.7 -2.0 - 3.0 mmol/L LAB HEMATOLOGY METHOD 05/04/2025 8:16 PM EDT [facility] Lactate, Venous, Whole Blood 2.4(H) 0.5 - 2.2 mmol/L LAB HEMATOLOGY METHOD 05/04/2025 8:16 PM EDT [facility] Blood Venous blood specimen / Unknown Venipuncture / Unknown 05/04/2025 8:10 PM EDT 05/04/2025 8:15 PM EDT us Kevin Hall MD LAB BLOOD ORDERABLES Final Resu lt Performing Organization Address City/[facility]/ZIP Co de Phone Number [facility] [address] [place] [address] * Ethyl Alcohol Plasma (05/04/2025 8:10 PM EDT) Ethanol Plasma <10 <10 mg/dL 05/04/2025 8:33 PM EDT [facility] Blood Venous blood specimen / Unknown Venipuncture / Unknown 05/04/2025 8:10 PM EDT 05/04/2025 8:14 PM EDT Narrative [facility] - 05/04/2025 8:33 PM EDT Enzymatic Assay: Performed on [employer]. us Kevin Hall MD LAB BLOOD ORDERABLES Final Resu lt [facility] [address] [place] [address] * XR Pelvis 1 or 2 Views [...] Alec Augustin MD on 05/04/2025 8:12 PM Kevin Hall MD IMG XR PROCEDURES Final Result [...] Alec Augustin MD on 05/04/2025 8:12 PM Kevin Hall MD IMG XR PROCEDURES Final Result * APTT (PTT) (05/04/2025 8:10 PM EDT) aPTT 25 25 - 35 sec 05/04/2025 8:28 PM EDT [facility] Blood Venous blood specimen / Unknown Venipuncture / Unknown 05/04/2025 8:10 PM EDT 05/04/2025 8:14 PM EDT us Kevin Hall MD LAB BLOOD ORDERABLES Final Resu lt [facility] [address] [place] [address] * Type and Screen (05/04/2025 8:10 PM EDT) ABO/Rh A Positive 05/04/2025 8:00 PM EDT BLOOD BANK Antibody Screen Negative 05/04/2025 8:00 PM EDT BLOOD BANK Specimen Expiration 05/07/2025 23:59 05/04/2025 8:00 PM EDT BLOOD BANK Blood Venous blood specimen / Unknown Venipuncture / Unknown 05/04/2025 8:10 PM EDT 05/04/2025 8:17 PM EDT us Kevin Hall MD LAB BLOOD BANK TEST ORDERABLES Final Result BLOOD BANK [address] [id number], * (ABNORMAL) CMP (05/04/2025 8:10 PM EDT) Glucose, Plasma 120(H) 74 - 99 mg/dL 05/04/2025 8:41 PM EDT [facility] BUN, Plasma 13 7 - 21 mg/dL 05/04/2025 8:41 PM EDT [facility] Creatinine, Plasma 1.00 0.70 - 1.20 mg/dL 05/04/2025 8:41 PM EDT [facility] BUN/Creatinine Ratio 13 05/04/2025 8:41 PM EDT [facility] Sodium, Plasma 140 136 - 145 mmol/L 05/04/2025 8:41 PM EDT [facility] Potassium, Plasma 3.7 3.6 - 4.9 mmol/L 05/04/2025 8:41 PM EDT [facility] Chloride, Plasma 104 97 - 107 mmol/L 05/04/2025 8:41 PM EDT [facility] CO2, Plasma 21(L) 22 - 29 mmol/L 05/04/2025 8:41 PM EDT [facility] Anion Gap 15 6 - 16 mmol/L 05/04/2025 8:41 PM EDT [facility] Total Calcium, Plasma 9.1 8.9 - 10.2 mg/dL 05/04/2025 8:41 PM EDT [facility] Total Protein 7.6 6.3 - 7.9 g/dL 05/04/2025 8:41 PM EDT [facility] Albumin, Plasma 4.5 3.5 - 5.2 g/dL 05/04/2025 8:41 PM EDT [facility] AST, Plasma 121(H) 10 - 50 U/L 05/04/2025 8:41 PM EDT [facility] ALT, Plasma 191(H) 10 - 50 U/L 05/04/2025 8:41 PM EDT [facility] Alkaline Phosphatase, Plasma 59 40 - 115 U/L 05/04/2025 8:41 PM EDT [facility] Total Bilirubin, Plasma 0.6 0.2 - 1.1 mg/dL 05/04/2025 8:41 PM EDT [facility] eGFRcr 111.2 mL/min/1.7 3m*2 05/04/2025 8:41 PM EDT [facility] Comment:Reported eGFRcr in m L/min/1.73m2 is based the CKD-EPI 2020 equation that does not use a race coefficient. Blood Venous blood specimen / Unknown Venipuncture / Unknown 05/04/2025 8:10 PM EDT 05/04/2025 8:14 PM EDT us Kevin Hall MD LAB BLOOD ORDERABLES Final Resu lt [facility] [address] [place] [address] from Last 3 Months Insurance [employer] [id number] Advance Directives * Full Code (Latest Code Status on File) Date Activated Date Inactivated Comments 05/05/2025 2:05 AM 05/07/2025 4:34 PM Question Answer Comments I have reviewed the capacity from the link above and, if needed, have updated to appropriate status: Yes Care Teams Macadam Raker Relationship Specialty Start Date End Date Milo Scahefer DO [address] [place] [address] PCP - General 05/16/24
== END 2025-06-26 23:59 ==
LOC: LAB.DROPOF 06-29 10:06
PROVIDERS: PCP Family Medicine; Visit Provider Family Medicine
DX: F31.9 Bipolar disorder, unspecified (principal); V89.2XXA Person injured in unspecified motor-vehicle accident, traffic, initial encounter
CPT/HCPCS: 80053; 82306; 85025